=== PATIENT | male | born 1980 | race Caucasian/White ===

== ENCOUNTER 2021-07-09 18:20 | Inpatient (IN) | payer OTHER ==
[2021-07-09] VITALS (20 sets, daily range): BP systolic 97–178; BP diastolic 58–117
[~2021-07-09] VITALS: Ht 185.4 cm; Wt 150.1 kg
--- NOTE | 2021-07-09 18:00 | NUR ---
Patient in from [place], to room ICU 7, report received
--- NOTE | 2021-07-09 18:25 | NUR ---
patient in the computer, report given to oncoming shift
[2021-07-09] MEDS ORDERED: ZOFRAN ONE (18:30)
[2021-07-09] MEDS ORDERED: ZOFRAN IV PRN (19:00)
[2021-07-09] MEDS: ZITHROMAX 500 MG in NS 250ML 250 ML IV SCH (19:00)
[2021-07-09] MEDS ORDERED: NS 250ML 250 ML ONE (20:52)
[2021-07-09] MEDS: DUO 0.5-3(2.5) MG/3 ML IH SCH (20:58)
[2021-07-09] MEDS: MORPHINE SULFATE IV PRN ×2 (21:20→21:40)
[2021-07-09] MEDS ORDERED: REMDESIVIR (EUA) 200 MG in NS 100ML 100 ML IV STA (21:37)
[2021-07-09] MEDS ORDERED: LOPRESSER ONE (21:41)
[2021-07-09] MEDS ORDERED: LOPRESSER IVP STA (21:43)
[2021-07-09] MEDS ORDERED: ATIVAN IM PRN (22:00)
[2021-07-09] MEDS ORDERED: APRESOLINE IV PRN (22:00)
[2021-07-09] MEDS ORDERED: LOVENOX SQ SCH (22:00)
[2021-07-09] MEDS ORDERED: DEXTROSE 50%-WATER SYRINGE IV PRN ×2 (22:00→23:30)
--- NOTE | 2021-07-09 22:08 | PRM.CONS ---
Consultation Reason for Consult: Reason for Consultation: acute respiratory failure and pneumonia due to COVID- 19 History of Present Illness Current and Past HX: (1) Acute respiratory failure due to COVID-19 Status: Acute ICD Code: U07.1 - COVID-19; J96.00 - Acute respiratory failure, unspecified whether with hypoxia or hypercapnia SNOMED: 17371034, [id number] Assessment & Plan: Initially requiring ComfortFlow w/ NRB, now on BiPAP. Received ivermectin, hydroxychloroquine, solumedrol x 1, rocephin x 1, lovenox x 1, vitamin D, vitamin C, zinc, azithromycin, and ativan at outside hospital. Did not receive remdesevir. This is patient's 2nd episode of COVID-19 infection, first was in February 2021. He still remained unvaccinated even after his first episode. [facility] 14.5. Will treat as follows: -continue dexamethasone daily -continue IV abx -start remdesevir -supplemental O2 as needed, wean as tolerated -lovenox 40mg SQ daily -will monitor CBC and CMP daily -enhanced respiratory precautions -full code -teleintensivist consult placed (2) Pneumonia due to 2019 novel coronavirus Status: Acute ICD Code: U07.1 - COVID-19; J12.82 - Pneumonia due to coronavirus disease 2019 SNOMED: 976681923787069654 Assessment & Plan: Outside imaging positive for bilateral infiltrates, COVID-19 positive. -treating COVID-19 infection as above -repeat CBC in AM -CXR in AM (3) DKA (diabetic ketoacidosis) Status: Acute ICD Code: E11.10 - Type 2 diabetes mellitus with ketoacidosis without coma SNOMED: 42662283, 576213774 Assessment & Plan: pH 7.2. AG 29 Serum acetone: large UA ketones 4+ Lactic acid 2.5 -insulin drip -IV fluids -NPO (4) Suspected CHF (congestive heart failure) Status: Chronic ICD Code: R09.89 - Other specified symptoms and signs involving the circulatory and respiratory systems SNOMED: 68563089, 418918496 Assessment & Plan: Patient was undergoing work-up for CHF in when he was found to be positive for COVID-19 so work-up was stopped at that time, no further testing done. -consider echo when patient is stable (5) T2DM (type 2 diabetes mellitus) Status: Chronic ICD Code: E11.9 - Type 2 diabetes mellitus without complications SNOMED: 46539201 Assessment & Plan: Uncontrolled. -treating DKA as above History of Patient Comments 41yoM w/ hx of uncontrolled T2DM and morbid obesity (BMI 40.1) presented to ICU as a transfer from [place] for higher level of care. He was diagnosed w/ COVID-19 on 07/05/21 and went to [facility] on 07/07/21 w/ worsening SOB and desaturation into low 80s on room air at home. Patient was also positive for COVID-19 in February 2021 and remains unvaccinated. At [facility] he received the following: solumedrol x 1, rocephin x 1, azithromycin x 1, magnesium x 1, vitamin D, vitamin C, zinc, hydroxychloroquine (really), ivermectin (really), lovenox x 1, sliding scale insulin, ativan, tessalon pearls. Did not receive remdesevir and was not offered remdesevir. is glad he was transferred here for HLOC. See labs below. Patient admitted to ICU for acute respiratory failure and pneumonia due to COVID-19 requiring BiPAP, DKA, and management of chronic conditions. . Vitals & Lab Vital Signs Date Time Temp Pulse Resp B/P (MAP) Pulse Ox O2 Delivery O2 Flow Rate FiO2 07/10/21 02:40 98.5 110 27 120/75 (90) 95 07/10/21 01:34 Bi-pap 100 07/10/21 00:00 100.00 Laboratory Tests Test 07/09/21 00:54 07/09/21 22:20 07/09/21 23:45 07/10/21 00:05 Urine Collection Type CCMS Urine Color YELLOW Urine Appearance TURBID Urine Bilirubin 1+ Urine Ketones 4+ Urine Specific [place] 1.025 Urine pH 5.5 Urine Protein 2+ Urine Urobilinogen 0.2 E.U./dL Urine Nitrate NEGATIVE Urine Leukocyte Esterase NEGATIVE Urine Glucose (Auto)(UA) 500 mg/dL Urine Blood 2+ Urine RBC TooNumerousToCount RBC/HPF Urine WBC NONE SEEN WBC/HPF Urine Squamous Epithelial Cells FEW Urine Bacteria FEW White Blood Count 14.5 10^3/uL Red Blood Count 4.62 10^6/uL Hemoglobin 12.8 g/dL Hematocrit 40.0 % Mean Corpuscular Volume 86.6 fL Mean Corpuscular Hemoglobin 27.7 pg Mean Corpuscular Hemoglobin Concent 32.0 g/dL Red Cell Distribution Width 13.3 % Platelet Count 148 10^3/uL Mean Platelet Volume 10.4 fL Neutrophils (%) (Auto) 85.7 % Lymphocytes (%) (Auto) 4.4 % Monocytes (%) (Auto) 7.4 % Neutrophils # (Auto) 12.4 10^3/uL Lymphocytes # (Auto) 0.63 10^3/uL1 Monocytes # (Auto) 1.1 10^3/uL Absolute Immature Granulocyte (auto 0.35 10^3 u/L Absolute Eosinophils (auto) 0.0 10^3/uL Immature Granulocytes % 2.40 % Eosinophils % 0.0 % Basophils % 0.1 % Basophils # 0.0 10^3/uL Sodium Level 137 mmol/L Potassium Level 4.0 mmol/L Chloride Level 100.0 mmol/L Carbon Dioxide Level 12.0 mmol/L Anion Gap 29.0 Blood Urea Nitrogen 22 mg/dL Creatinine 0.98 mg/dL Estimated GFR () 102.0 Est GFR (CKD-EPI)(Non-Afr [place]) 84.3 BUN/Creatinine Ratio 22.0 Glucose Level 422 mg/dL Calcium Level 7.0 mg/dL Phosphorus Level 3.2 mg/dL Magnesium Level 1.9 mg/dL Total Bilirubin 0.6 mg/dL Aspartate Amino Transf (AST/SGOT) 22 U/L Alanine Aminotransferase (ALT/SGPT) 16 U/L Alkaline Phosphatase 183 U/L Total Protein 5.3 g/dL Albumin 1.8 g/dL Globulin 3.5 Albumin/Globulin Ratio 0.514 Acetone, Semi-Quantitative LARGE Lactic Acid Level 2.5 mmol/L Blood Gas Sample Site LR Blood Gas pH 7.202 Blood Gas PCO2 29.5 mmHg Blood Gas PO2 78.0 mmHg Blood Gas HCO3 11.3 mmol/L Blood Gas Base Excess -15.2 mmol/L Filiberto Test POSITIVE Arterial Blood Oxygen Saturation 93 % Deoxyhemoglobin 6.9 % Carboxyhemoglobin 0.8 % Methemoglobin 0.4 % Total Hemoglobin 15.1 % Total Oxygen Concentration 19.5 % Oxygen Delivery Method (LAB) BIPAP ST 16/[address] Blood Gas Vent Rate 25 FiO2 100 % Total Carbon Dioxide 12.2 mmol/L Test 07/10/21 03:25 Lactic Acid Followup at 2 Hours 1.8 mmol/L WHITNEY JUÁREZ MD Jul 09, 2021 22:08
[2021-07-09 22:31] LABS: BASOPHIL % 0.1 % (0.0-0.2); LYMPHOCYTES # 0.63 10^3/uL1 (1.0-4.8); LYMPHOCYTES % 4.4 % (24.0-44.0); MEAN CORP HGB 27.7 pg (26-34); MONOCYTES # 1.1 10^3/uL (0.3-0.8); MONOCYTES % 7.4 % (5.0-12.0); NEUTROPHIL # 12.4 10^3/uL (1.8-7.7); NEUTROPHILS % 85.7 % (41.0-85.0); PLATELET COUNT 148 10^3/uL (150-400); RED CELL DISTRIBUTION WIDTH 13.3 % (11.5-14.5)
[2021-07-09] MEDS ORDERED: HUMALOG SQ ONE (23:30)
[2021-07-09] MEDS ORDERED: HUMULIN R 100 UNIT in NS 100ML 100 ML IV SCH (23:30)
[2021-07-09] MEDS ORDERED: NS 100ML 100 ML IV ONE (23:34)
[2021-07-09] MEDS ORDERED: HUMULIN R ONE (23:35)
[2021-07-09] MEDS ORDERED: NS 1000ML 1,000 ML ONE (23:55)
[2021-07-10] VITALS (206 sets, daily range): BP systolic 85–162; BP diastolic 48–102
[2021-07-10] MEDS: HUMULIN R 100 UNIT in NS 100ML 100 ML IV SCH ×2 (00:02→10:03)
[2021-07-10 00:36] LABS: ABG PCO2 29.5 mmHg (35.0-45.0); ABG PH 7.202 (7.350-7.450); BE(B) -15.2 mmol/L (-2.0-2.0); HCO3act 11.3 mmol/L (22.0-26.0)
[2021-07-10] MEDS: D5W-1/2NS 1000ML 1,000 ML IV SCH ×3 (00:50→07:30)
[2021-07-10] MEDS: DUO 0.5-3(2.5) MG/3 ML IH SCH ×6 (01:00→20:45)
[2021-07-10 01:01] LABS: BILIRUBIN,URINE 1+ (NEGATIVE); UROBILINOGEN,URINE 0.2 E.U./dL (0.2)
--- NOTE | 2021-07-10 01:37 | TELE.CONS ---
Consultation Reason for Consult: Reason for Consultation: COvid History of Present Illness History of Patient Comments The pt is a 41 YOM with pmxh of DM and obesity who presents for SOB. THe pt is not covid vaccinated and is noted to have SOb and presents with COVID PNA. PT is now on nrb and high flow but had desat to 60% and was placd on bipap 100%. PT was als onoted to ahve elevated AG and FS of 400 with nausea. PT was started on insulin gtt for DKA protocol. PT complains on NV. Review of Systems Allergies: Coded Allergies: No Known Drug Allergies (Verified Allergy, Unknown, 07/10/21) LABS LAB RESULTS Laboratory Tests Test 07/09/21 00:54 07/09/21 22:20 07/09/21 23:45 07/10/21 00:05 Urine Collection Type CCMS Urine Color YELLOW Urine Appearance TURBID Urine Bilirubin 1+ Urine Ketones 4+ Urine Specific [place] 1.025 Urine pH 5.5 Urine Protein 2+ Urine Urobilinogen 0.2 E.U./dL Urine Nitrate NEGATIVE Urine Leukocyte Esterase NEGATIVE Urine Glucose (Auto)(UA) 500 mg/dL Urine Blood 2+ Urine RBC TooNumerousToCount RBC/HPF Urine WBC NONE SEEN WBC/HPF Urine Squamous Epithelial Cells FEW Urine Bacteria FEW White Blood Count 14.5 10^3/uL Red Blood Count 4.62 10^6/uL Hemoglobin 12.8 g/dL Hematocrit 40.0 % Mean Corpuscular Volume 86.6 fL Mean Corpuscular Hemoglobin 27.7 pg Mean Corpuscular Hemoglobin Concent 32.0 g/dL Red Cell Distribution Width 13.3 % Platelet Count 148 10^3/uL Mean Platelet Volume 10.4 fL Neutrophils (%) (Auto) 85.7 % Lymphocytes (%) (Auto) 4.4 % Monocytes (%) (Auto) 7.4 % Neutrophils # (Auto) 12.4 10^3/uL Lymphocytes # (Auto) 0.63 10^3/uL1 Monocytes # (Auto) 1.1 10^3/uL Absolute Immature Granulocyte (auto 0.35 10^3 u/L Absolute Eosinophils (auto) 0.0 10^3/uL Immature Granulocytes % 2.40 % Eosinophils % 0.0 % Basophils % 0.1 % Basophils # 0.0 10^3/uL Sodium Level 137 mmol/L Potassium Level 4.0 mmol/L Chloride Level 100.0 mmol/L Carbon Dioxide Level 12.0 mmol/L Anion Gap 29.0 Blood Urea Nitrogen 22 mg/dL Creatinine 0.98 mg/dL Estimated GFR () 102.0 Est GFR (CKD-EPI)(Non-Afr [place]) 84.3 BUN/Creatinine Ratio 22.0 Glucose Level 422 mg/dL Calcium Level 7.0 mg/dL Phosphorus Level 3.2 mg/dL Magnesium Level 1.9 mg/dL Total Bilirubin 0.6 mg/dL Aspartate Amino Transf (AST/SGOT) 22 U/L Alanine Aminotransferase (ALT/SGPT) 16 U/L Alkaline Phosphatase 183 U/L Total Protein 5.3 g/dL Albumin 1.8 g/dL Globulin 3.5 Albumin/Globulin Ratio 0.514 Acetone, Semi-Quantitative LARGE Lactic Acid Level 2.5 mmol/L Blood Gas Sample Site LR Blood Gas pH 7.202 Blood Gas PCO2 29.5 mmHg Blood Gas PO2 78.0 mmHg Blood Gas HCO3 11.3 mmol/L Blood Gas Base Excess -15.2 mmol/L Filiberto Test POSITIVE Arterial Blood Oxygen Saturation 93 % Deoxyhemoglobin 6.9 % Carboxyhemoglobin 0.8 % Methemoglobin 0.4 % Total Hemoglobin 15.1 % Total Oxygen Concentration 19.5 % Oxygen Delivery Method (LAB) BIPAP ST 16/[address] Blood Gas Vent Rate 25 FiO2 100 % Total Carbon Dioxide 12.2 mmol/L Current Medications Medications (Trade) Dose Ordered Sig/Robby Route PRN Reason Start Time Stop Time Status Last Admin Dose Admin Ondansetron HCl (Zofran) 4 mg STK-MED ONCE .ROUTE 07/09/21 18:30 07/09/21 18:31 DC Ondansetron HCl (Zofran) 4 mg Q6HR PRN IV NAUSEA / VOMITING 07/09/21 19:00 08/08/21 18:59 07/09/21 21:20 Azithromycin 500 mg/Sodium Chloride 250 ml @ 175 mls/hr Q24HRS IV 07/09/21 19:00 08/08/21 18:59 07/09/21 19:00 Albuterol/ Ipratropium (Duo 0.5-3(2.5) Mg/3 ml) 3 ml RTQ4 IH 07/09/21 21:00 08/08/21 20:59 07/09/21 20:58 Morphine Sulfate (Morphine Sulfate) 1 mg Q6 PRN IV PAIN 4 - 6 07/09/21 19:00 08/08/21 18:59 Morphine Sulfate (Morphine Sulfate) 2 mg Q6 PRN IV PAIN 7 - 10 07/09/21 20:00 08/08/21 19:59 07/09/21 21:20 Sodium Chloride 250 ml @ ud STK-MED ONCE .ROUTE 07/09/21 20:52 07/09/21 20:52 DC Metoprolol Tartrate (Lopresser) 5 mg STK-MED ONCE .ROUTE 07/09/21 21:41 07/09/21 21:42 DC Metoprolol Tartrate (Lopresser) 5 mg STAT STAT IVP 07/09/21 21:43 07/09/21 22:00 DC Insulin Human Lispro (Humalog) 0-140 0 Units 141-200... ACHS SQ 07/10/21 07:30 08/09/21 07:29 Dextrose (Dextrose 50%-Water Syringe) 25 ml STAT PRN IV hypoglycemia 07/09/21 22:00 08/08/21 21:59 Enoxaparin Sodium (Lovenox) 40 mg Q24HRS SQ 07/09/21 22:00 08/08/21 21:59 Hydralazine HCl (Apresoline) 10 mg Q6HR PRN IV HYPERTENSION 07/09/21 22:00 08/08/21 21:59 Remdesivir 200 mg/ Sodium Chloride 140 ml @ 120.69 mls/ hr OT STAT IV 07/09/21 21:37 07/09/21 22:46 UNV Remdesivir 100 mg/ Sodium Chloride 120 ml @ 111.111 mls/hr Q24HRS IV 07/10/21 22:00 07/13/21 23:05 UNV Lorazepam (Ativan) 1 mg Q4HR PRN IM ANXIETY 07/09/21 22:00 08/08/21 21:59 Insulin Human Lispro (Humalog) 18 unit OT ONCE SQ 07/09/21 23:30 07/09/21 23:31 DC Ondansetron HCl (Zofran) 4 mg Q4H PRN IV NAUSEA / VOMITING 07/09/21 23:30 08/08/21 23:29 Insulin Human Regular 100 unit/ Sodium Chloride 100 ml @ 5 mls/hr IV 07/09/21 23:30 07/10/21 01:10 DC Dextrose (Dextrose 50%-Water Syringe) 25 ml STAT PRN IV HYPOGLYCEMIA 07/09/21 23:30 08/08/21 23:29 Sodium Chloride 100 ml @ ud STK-MED ONCE IV 07/09/21 23:34 07/09/21 23:35 DC Insulin Human Regular (Humulin R) 1 unit STK-MED ONCE .ROUTE 07/09/21 23:35 07/09/21 23:35 DC Sodium Chloride 1,000 ml @ ud STK-MED ONCE .ROUTE 07/09/21 23:55 07/09/21 23:56 DC Insulin Human Regular 100 unit/ Sodium Chloride 100 ml @ 0 mls/hr TITRATE IV 07/10/21 01:30 08/09/21 01:29 07/10/21 00:02 VTE VTE Risk Score VTE Risk: Score 0-1 = Low Risk (Aggressive mobilization; early ambulation; no VTE prophylaxis required) Score 2: Moderate Risk (Intermittent/Pneumatic Compression Device OR Lovenox/Heparin/Coumadin) Score 3-4: High Risk (Intermittent/Pneumatic Compression Device AND Lovenox/Heparin/Coumadin) Score > or =5: Highest Risk (Intermittent/Pneumatic Compression Device AND Lovenox/Heparin/Coumadin) Assessment/Plan Assessment/Plan Assessment/Plan #1 Neuro: Tylenol for pain #2 CV: The pt is normotensive at present. #3 Pulm: Pt has covid PNA now c/b ARDS and acute respiratory failure with hypoxia requiring Bipap. The pt is on FIo2 of 100% and PEEP of 5. Pt received decadron, will start remdesivir, , start duonebs, melatonin. #4 GI: diet as tolerated #5 Renal: Monitor for renal failure, replete lytes , pt AG elevation in setting of DKA. Lactate 2 #6 ID: Covid + and getting remdesivir #7 Endo: keep FS 150-180, pt with DKA, start insulin gtt protocol #8 Heme: Tx plats >10k hgb >7, pt at risk for clotting and so will give a/c #9 PPx: lovenox and PPI I discussed pt with THERAPEUTIC SALES SPECIALIST and completed the video assessment with assistance from the THERAPEUTIC SALES SPECIALIST. I spent a total of greater than 60 minutes formulating critical care for this patient today. I saw this patient and completed a full visual exam via audio-visual HIPAA compliant technology. SERJIO OSUNA MD Jul 10, 2021 01:36
[2021-07-10 04:57] LABS: CARBON DIOXIDE 16.6 mmol/L (20.0-32)
[2021-07-10 05:02] LABS: BASOPHIL % 0.1 % (0.0-0.2); LYMPHOCYTES # 0.78 10^3/uL1 (1.0-4.8); LYMPHOCYTES % 5.3 % (24.0-44.0); MONOCYTES # 1.2 10^3/uL (0.3-0.8); MONOCYTES % 8.3 % (5.0-12.0); NEUTROPHIL # 12.8 10^3/uL (1.8-7.7); NEUTROPHILS % 86.3 % (41.0-85.0); PLATELET COUNT 149 10^3/uL (150-400); RED CELL DISTRIBUTION WIDTH 13.2 % (11.5-14.5)
[2021-07-10] MEDS ORDERED: HUMALOG SQ SCH (07:30)
--- NOTE | 2021-07-10 07:53 | DIREP ---
PROCEDURE:CHEST 1 VIEW COMPARISON:None. INDICATIONS:pneumonia FINDINGS: LUNGS/PLEURA:Diffuse bilateral infiltrates worse in the lower lobes. VASCULATURE:Normal. Unremarkable pulmonary vasculature. CARDIAC:Normal. No cardiac silhouette abnormality or cardiomegaly. MEDIASTINUM:Normal. No visible mass or adenopathy. BONES:Normal. No fracture or visible bony lesion. OTHER:Negative. CONCLUSION:Diffuse bilateral infiltrates worse in the lower lobes. Dictated by: Nathaniel Rodriguez MD on 07/10/2021 at 07:51 AM
[2021-07-10 08:39] LABS: CARBON DIOXIDE 22.8 mmol/L (20.0-32)
[2021-07-10] MEDS ORDERED: REMDESIVIR (EUA) 200 MG in NS 100ML 100 ML IV ONE (09:00)
[2021-07-10] MEDS: DEXAMETHASONE 10 MG/ML VIAL IV SCH (09:00)
[2021-07-10] MEDS ORDERED: DEXAMETHASONE 10 MG/ML VIAL IV SCH (09:00)
--- NOTE | 2021-07-10 09:09 | DIET.OP ---
Nutrition Asmt/Malnutrit 2-17 Nutritional Screening: Malnutr/Diet Consult Diagnosis: COVID PNA Pertinent Medical Hx/Surgical: DKA, CHF, T2DM Subjective Information: Diabetic diet consult received. Poor PO intake currently. Unable to speak with pt at this time, HIRO wt or diet hx. Pt on bipap. Current Diet Order/Nutrition S: 1800kcal ADA Patient /S.O: Cannot Verbalize Diet EDU Pertinent Meds azithromycin, hydralazine, insulin, remdesivir, lovenox Pertinent Labs BUN 23 H, Glucose 340 H, Hgb 13.5 L Height (Inches): 73 Current Weight: 304 %IBW: 165 Weight Status: Obese GI Symptoms: None Food Allergies: No Cultural/Ethnic/Jew Tory: none pertinent Usual Diet at Home: UTO Skin Integrity/Comment: No Current %PO: Negligible(<25%) BEE in Kcals: Adj WT of IBW Calories/Kcals/K-26 kcal/kg IBW Kcals Calculated: 7619-7376 kcal/day Protein: Adj WT of IBW Protein g/k.2-2.0 g/kg Protein Calculated: 100-167 g/day Fluid: ml: 2022-6619 mL/day or per Nutritional Problem: Nutr. Problems Present Problems: Predicted suboptimal intake Etiology: COVID PNA, oxygen support via bipap Signs/Symptoms: poor PO intake reported, bipap therapy ordered Protein-Calorie Malnutrition: N/A Is there a minimum of two crit: No Malnutrition Related to Morbid: No Recommendations by RD: Add supplement feedings RD Comments: Glucerna TID Expected Outcomes PO intake >50%. Wt stabilization. Labs WNL. Skin intact. Malnutrtion/Nutrition Risk Edu: No RD Follow-Up Date: Jul 12, 2021 Notificiation Needed?: No LESLEY CANSECO LD - TELE Jul 10, 2021 09:09
[2021-07-10] MEDS ORDERED: NS 100ML 100 ML IV ONE (09:37)
[2021-07-10] MEDS ORDERED: D5W-1/2 NS/KCL 20MEQ 1,000 ML ONE (09:57)
--- NOTE | 2021-07-10 10:01 | PRM.PN ---
Subjective Subjective Date: Jul 10, 2021 Time: 09:56 Subjective Patient is a 41-year-old who was transferred from another facility to the hospital for pneumonia due to COVID-19 infection and acute respiratory failure requiring high level of oxygen therapy admitted to the ICU for further evaluati on and management. Upon arrival patient was noted to be in DKA and was started on appropriate management.Patient is currently on BiPAP 16/8 satting between 89 to 93%.Review of medical records indicate patient with bilateral pneumonia worse on the left lower lobe and noted to have elevated WBC of 14. Patient will benefit from IV antibiotic. VTE VTE Risk Score VTE Risk: Score 0-1 = Low Risk (Aggressive mobilization; early ambulation; no VTE prophylaxis required) Score 2: Moderate Risk (Intermittent/Pneumatic Compression Device OR Lovenox/Heparin/Coumadin) Score 3-4: High Risk (Intermittent/Pneumatic Compression Device AND Lovenox/Heparin/Coumadin) Score > or =5: Highest Risk (Intermittent/Pneumatic Compression Device AND Lovenox/Heparin/Coumadin) Review of Systems Other Unable to obtain Allergies: Coded Allergies: No Known Drug Allergies (Verified Allergy, Unknown, 07/10/21) Objective Vitals and I/O Vital Sign - Last 24 Hours 07/10/21 07/10/21 07/10/21 07/10/21 08:00 08:49 08:50 08:51 Pulse 103 103 103 Resp 31 31 31 Pulse Ox 93 93 93 O2 Delivery Bi-pap Bi-pap O2 Flow Rate 100.00 FiO2 100 100 07/10/21 07/10/21 08:52 08:53 Pulse 108 Resp 28 Pulse Ox 94 O2 Flow Rate 45.00 FiO2 100 Intake and Output 07/10/21 07:00 Intake Total 1000 ml Output Total 2100 ml Balance -1100 ml General: Alert, Oriented X3 HEENT: Atraumatic, PERRLA Neck: Supple, No JVD, No thyromegaly Lungs: Other (Decreased left lower lung sound) Heart: Regular rate, Normal S1, Normal S2 Abdomen: Normal bowel sounds, Soft, No tenderness Extremities: No clubbing, No cyanosis Skin: No rashes, No breakdown, No significant lesion All Results(Lab/Rad) Laboratory Tests Test 07/09/21 22:20 07/09/21 23:45 07/10/21 00:05 07/10/21 03:25 White Blood Count 14.5 10^3/uL Red Blood Count 4.62 10^6/uL Hemoglobin 12.8 g/dL Hematocrit 40.0 % Mean Corpuscular Volume 86.6 fL Mean Corpuscular Hemoglobin 27.7 pg Mean Corpuscular Hemoglobin Concent 32.0 g/dL Red Cell Distribution Width 13.3 % Platelet Count 148 10^3/uL Mean Platelet Volume 10.4 fL Neutrophils (%) (Auto) 85.7 % Lymphocytes (%) (Auto) 4.4 % Monocytes (%) (Auto) 7.4 % Neutrophils # (Auto) 12.4 10^3/uL Lymphocytes # (Auto) 0.63 10^3/uL1 Monocytes # (Auto) 1.1 10^3/uL Absolute Immature Granulocyte (auto 0.35 10^3 u/L Absolute Eosinophils (auto) 0.0 10^3/uL Immature Granulocytes % 2.40 % Eosinophils % 0.0 % Basophils % 0.1 % Basophils # 0.0 10^3/uL Sodium Level 137 mmol/L Potassium Level 4.0 mmol/L Chloride Level 100.0 mmol/L Carbon Dioxide Level 12.0 mmol/L Anion Gap 29.0 Blood Urea Nitrogen 22 mg/dL Creatinine 0.98 mg/dL Estimated GFR () 102.0 Est GFR (CKD-EPI)(Non-Afr Swedish) 84.3 BUN/Creatinine Ratio 22.0 Glucose Level 422 mg/dL Calcium Level 7.0 mg/dL Phosphorus Level 3.2 mg/dL Magnesium Level 1.9 mg/dL Total Bilirubin 0.6 mg/dL Aspartate Amino Transf (AST/SGOT) 22 U/L Alanine Aminotransferase (ALT/SGPT) 16 U/L Alkaline Phosphatase 183 U/L Total Protein 5.3 g/dL Albumin 1.8 g/dL Globulin 3.5 Albumin/Globulin Ratio 0.514 Acetone, Semi-Quantitative LARGE Lactic Acid Level 2.5 mmol/L Blood Gas Sample Site LR Blood Gas pH 7.202 Blood Gas PCO2 29.5 mmHg Blood Gas PO2 78.0 mmHg Blood Gas HCO3 11.3 mmol/L Blood Gas Base Excess -15.2 mmol/L Filiberto Test POSITIVE Arterial Blood Oxygen Saturation 93 % Deoxyhemoglobin 6.9 % Carboxyhemoglobin 0.8 % Methemoglobin 0.4 % Total Hemoglobin 15.1 % Total Oxygen Concentration 19.5 % Oxygen Delivery Method (LAB) BIPAP ST 16/[address] Blood Gas Vent Rate 25 FiO2 100 % Total Carbon Dioxide 12.2 mmol/L Lactic Acid Followup at 2 Hours 1.8 mmol/L Test 07/10/21 04:16 07/10/21 04:46 07/10/21 05:33 07/10/21 07:07 White Blood Count 14.8 10^3/uL Red Blood Count 4.66 10^6/uL Hemoglobin 13.5 g/dL Hematocrit 39.0 % Mean Corpuscular Volume 83.7 fL Mean Corpuscular Hemoglobin 29.0 pg Mean Corpuscular Hemoglobin Concent 34.6 g/dL Red Cell Distribution Width 13.2 % Platelet Count 149 10^3/uL Mean Platelet Volume 10.8 fL Neutrophils (%) (Auto) 86.3 % Lymphocytes (%) (Auto) 5.3 % Monocytes (%) (Auto) 8.3 % Neutrophils # (Auto) 12.8 10^3/uL Lymphocytes # (Auto) 0.78 10^3/uL1 Monocytes # (Auto) 1.2 10^3/uL Absolute Immature Granulocyte (auto 0.31 10^3 u/L Absolute Eosinophils (auto) 0.0 10^3/uL Immature Granulocytes % 2.10 % Eosinophils % 0.0 % Basophils % 0.1 % Basophils # 0.0 10^3/uL Sodium Level 132 mmol/L Potassium Level 3.9 mmol/L Chloride Level 97.0 mmol/L Carbon Dioxide Level 16.6 mmol/L Anion Gap 22.3 Blood Urea Nitrogen 24 mg/dL Creatinine 1.13 mg/dL Estimated GFR () 86.5 Est GFR (CKD-EPI)(Non-Afr Swedish) 71.5 BUN/Creatinine Ratio 21.0 Glucose Level 418 mg/dL Calcium Level 7.9 mg/dL Total Bilirubin 0.5 mg/dL Aspartate Amino Transf (AST/SGOT) 31 U/L Alanine Aminotransferase (ALT/SGPT) 21 U/L Alkaline Phosphatase 213 U/L Total Protein 6.0 g/dL Albumin 1.9 g/dL Globulin 4.1 Albumin/Globulin Ratio 0.463 Bedside Glucose 378 381 328 Test 07/10/21 08:13 07/10/21 08:17 07/10/21 09:12 Sodium Level 134 mmol/L Potassium Level 3.7 mmol/L Chloride Level 99.0 mmol/L Carbon Dioxide Level 22.8 mmol/L Glucose Level 340 mg/dL Blood Urea Nitrogen 23 mg/dL Creatinine 1.03 mg/dL Calcium Level 8.0 mg/dL Anion Gap 15.9 Estimated GFR () 96.3 Est GFR (CKD-EPI)(Non-Afr Swedish) 79.6 BUN/Creatinine Ratio 22.0 Bedside Glucose 270 332 Current Medications Medications (Trade) Dose Ordered Sig/Robby Route PRN Reason Start Time Stop Time Status Last Admin Dose Admin Ondansetron HCl (Zofran) 4 mg STK-MED ONCE .ROUTE 07/09/21 18:30 07/09/21 18:31 DC Ondansetron HCl (Zofran) 4 mg Q6HR PRN IV NAUSEA / VOMITING 07/09/21 19:00 08/08/21 18:59 07/09/21 21:20 Azithromycin 500 mg/Sodium Chloride 250 ml @ 175 mls/hr Q24HRS IV 07/09/21 19:00 08/08/21 18:59 07/09/21 19:00 Albuterol/ Ipratropium (Duo 0.5-3(2.5) Mg/3 ml) 3 ml RTQ4 IH 07/09/21 21:00 08/08/21 20:59 07/10/21 08:48 Morphine Sulfate (Morphine Sulfate) 1 mg Q6 PRN IV PAIN 4 - 6 07/09/21 19:00 08/08/21 18:59 Morphine Sulfate (Morphine Sulfate) 2 mg Q6 PRN IV PAIN 7 - 10 07/09/21 20:00 08/08/21 19:59 07/09/21 21:20 Sodium Chloride 250 ml @ ud STK-MED ONCE .ROUTE 07/09/21 20:52 07/09/21 20:52 DC Metoprolol Tartrate (Lopresser) 5 mg STK-MED ONCE .ROUTE 07/09/21 21:41 07/09/21 21:42 DC Metoprolol Tartrate (Lopresser) 5 mg STAT STAT IVP 07/09/21 21:43 07/09/21 22:00 DC 07/09/21 21:43 Insulin Human Lispro (Humalog) 0-140 0 Units 141-200... ACHS SQ 07/10/21 07:30 08/09/21 07:29 Hold Dextrose (Dextrose 50%-Water Syringe) 25 ml STAT PRN IV hypoglycemia 07/09/21 22:00 08/08/21 21:59 Enoxaparin Sodium (Lovenox) 40 mg Q24HRS SQ 07/09/21 22:00 08/08/21 21:59 07/09/21 22:00 Hydralazine HCl (Apresoline) 10 mg Q6HR PRN IV HYPERTENSION 07/09/21 22:00 08/08/21 21:59 Remdesivir 200 mg/ Sodium Chloride 140 ml @ 120.69 mls/ hr OT STAT IV 07/09/21 21:37 07/10/21 08:10 DC Remdesivir 100 mg/ Sodium Chloride 120 ml @ 111.111 mls/hr Q24HRS IV 07/10/21 22:00 07/10/21 08:22 DC Lorazepam (Ativan) 1 mg Q4HR PRN IM ANXIETY 07/09/21 22:00 08/08/21 21:59 07/09/21 23:50 Insulin Human Lispro (Humalog) 18 unit OT ONCE SQ 07/09/21 23:30 07/09/21 23:31 DC 07/09/21 23:30 Ondansetron HCl (Zofran) 4 mg Q4H PRN IV NAUSEA / VOMITING 07/09/21 23:30 08/08/21 23:29 Insulin Human Regular 100 unit/ Sodium Chloride 100 ml @ 5 mls/hr IV 07/09/21 23:30 07/10/21 01:10 DC Dextrose (Dextrose 50%-Water Syringe) 25 ml STAT PRN IV HYPOGLYCEMIA 07/09/21 23:30 08/08/21 23:29 Sodium Chloride 100 ml @ ud STK-MED ONCE IV 07/09/21 23:34 07/09/21 23:35 DC Insulin Human Regular (Humulin R) 1 unit STK-MED ONCE .ROUTE 07/09/21 23:35 07/09/21 23:35 DC Sodium Chloride 1,000 ml @ ud STK-MED ONCE .ROUTE 07/09/21 23:55 07/09/21 23:56 DC Insulin Human Regular 100 unit/ Sodium Chloride 100 ml @ 0 mls/hr TITRATE IV 07/10/21 01:30 08/09/21 01:29 07/10/21 00:02 Remdesivir 200 mg/ Sodium Chloride 140 ml @ 120.69 mls/ hr OT ONCE IV 07/10/21 09:00 07/10/21 10:09 07/10/21 09:00 Remdesivir 100 mg/ Sodium Chloride 120 ml @ 111.111 mls/hr Q24HRS IV 07/11/21 09:00 07/14/21 10:05 Sodium Chloride 100 ml @ ud STK-MED ONCE IV 07/10/21 09:37 07/10/21 09:37 DC Course Sepsis Screening Results: Posi: POSITIVE++ Sepsis Qualifier/Stage: SEVERE SEPSIS RISK Vitals & review Data Vital Sign - Last 24 Hours 07/10/21 07/10/21 07/10/21 07/10/21 08:00 08:49 08:50 08:51 Pulse 103 103 103 Resp 31 31 31 Pulse Ox 93 93 93 O2 Delivery Bi-pap Bi-pap O2 Flow Rate 100.00 FiO2 100 100 07/10/21 07/10/21 08:52 08:53 Pulse 108 Resp 28 Pulse Ox 94 O2 Flow Rate 45.00 FiO2 100 Intake and Output 07/10/21 07:00 Intake Total 1000 ml Output Total 2100 ml Balance -1100 ml Laboratory Tests Test 07/09/21 00:54 07/09/21 22:20 07/09/21 23:45 07/10/21 00:05 Urine Collection Type CCMS Urine Color YELLOW Urine Appearance TURBID Urine Bilirubin 1+ Urine Ketones 4+ Urine Specific [place] 1.025 Urine pH 5.5 Urine Protein 2+ Urine Urobilinogen 0.2 E.U./dL Urine Nitrate NEGATIVE Urine Leukocyte Esterase NEGATIVE Urine Glucose (Auto)(UA) 500 mg/dL Urine Blood 2+ Urine RBC TooNumerousToCount RBC/HPF Urine WBC NONE SEEN WBC/HPF Urine Squamous Epithelial Cells FEW Urine Bacteria FEW White Blood Count 14.5 10^3/uL Red Blood Count 4.62 10^6/uL Hemoglobin 12.8 g/dL Hematocrit 40.0 % Mean Corpuscular Volume 86.6 fL Mean Corpuscular Hemoglobin 27.7 pg Mean Corpuscular Hemoglobin Concent 32.0 g/dL Red Cell Distribution Width 13.3 % Platelet Count 148 10^3/uL Mean Platelet Volume 10.4 fL Neutrophils (%) (Auto) 85.7 % Lymphocytes (%) (Auto) 4.4 % Monocytes (%) (Auto) 7.4 % Neutrophils # (Auto) 12.4 10^3/uL Lymphocytes # (Auto) 0.63 10^3/uL1 Monocytes # (Auto) 1.1 10^3/uL Absolute Immature Granulocyte (auto 0.35 10^3 u/L Absolute Eosinophils (auto) 0.0 10^3/uL Immature Granulocytes % 2.40 % Eosinophils % 0.0 % Basophils % 0.1 % Basophils # 0.0 10^3/uL Sodium Level 137 mmol/L Potassium Level 4.0 mmol/L Chloride Level 100.0 mmol/L Carbon Dioxide Level 12.0 mmol/L Anion Gap 29.0 Blood Urea Nitrogen 22 mg/dL Creatinine 0.98 mg/dL Estimated GFR () 102.0 Est GFR (CKD-EPI)(Non-Afr Swedish) 84.3 BUN/Creatinine Ratio 22.0 Glucose Level 422 mg/dL Calcium Level 7.0 mg/dL Phosphorus Level 3.2 mg/dL Magnesium Level 1.9 mg/dL Total Bilirubin 0.6 mg/dL Aspartate Amino Transf (AST/SGOT) 22 U/L Alanine Aminotransferase (ALT/SGPT) 16 U/L Alkaline Phosphatase 183 U/L Total Protein 5.3 g/dL Albumin 1.8 g/dL Globulin 3.5 Albumin/Globulin Ratio 0.514 Acetone, Semi-Quantitative LARGE Lactic Acid Level 2.5 mmol/L Blood Gas Sample Site LR Blood Gas pH 7.202 Blood Gas PCO2 29.5 mmHg Blood Gas PO2 78.0 mmHg Blood Gas HCO3 11.3 mmol/L Blood Gas Base Excess -15.2 mmol/L Filiberto Test POSITIVE Arterial Blood Oxygen Saturation 93 % Deoxyhemoglobin 6.9 % Carboxyhemoglobin 0.8 % Methemoglobin 0.4 % Total Hemoglobin 15.1 % Total Oxygen Concentration 19.5 % Oxygen Delivery Method (LAB) BIPAP ST 16/[address] Blood Gas Vent Rate 25 FiO2 100 % Total Carbon Dioxide 12.2 mmol/L Test 07/10/21 03:25 07/10/21 04:16 07/10/21 04:46 07/10/21 05:33 Lactic Acid Followup at 2 Hours 1.8 mmol/L White Blood Count 14.8 10^3/uL Red Blood Count 4.66 10^6/uL Hemoglobin 13.5 g/dL Hematocrit 39.0 % Mean Corpuscular Volume 83.7 fL Mean Corpuscular Hemoglobin 29.0 pg Mean Corpuscular Hemoglobin Concent 34.6 g/dL Red Cell Distribution Width 13.2 % Platelet Count 149 10^3/uL Mean Platelet Volume 10.8 fL Neutrophils (%) (Auto) 86.3 % Lymphocytes (%) (Auto) 5.3 % Monocytes (%) (Auto) 8.3 % Neutrophils # (Auto) 12.8 10^3/uL Lymphocytes # (Auto) 0.78 10^3/uL1 Monocytes # (Auto) 1.2 10^3/uL Absolute Immature Granulocyte (auto 0.31 10^3 u/L Absolute Eosinophils (auto) 0.0 10^3/uL Immature Granulocytes % 2.10 % Eosinophils % 0.0 % Basophils % 0.1 % Basophils # 0.0 10^3/uL Sodium Level 132 mmol/L Potassium Level 3.9 mmol/L Chloride Level 97.0 mmol/L Carbon Dioxide Level 16.6 mmol/L Anion Gap 22.3 Blood Urea Nitrogen 24 mg/dL Creatinine 1.13 mg/dL Estimated GFR () 86.5 Est GFR (CKD-EPI)(Non-Afr Swedish) 71.5 BUN/Creatinine Ratio 21.0 Glucose Level 418 mg/dL Calcium Level 7.9 mg/dL Total Bilirubin 0.5 mg/dL Aspartate Amino Transf (AST/SGOT) 31 U/L Alanine Aminotransferase (ALT/SGPT) 21 U/L Alkaline Phosphatase 213 U/L Total Protein 6.0 g/dL Albumin 1.9 g/dL Globulin 4.1 Albumin/Globulin Ratio 0.463 Bedside Glucose 378 381 Test 07/10/21 07:07 07/10/21 08:13 07/10/21 08:17 07/10/21 09:12 Bedside Glucose 328 270 332 Sodium Level 134 mmol/L Potassium Level 3.7 mmol/L Chloride Level 99.0 mmol/L Carbon Dioxide Level 22.8 mmol/L Glucose Level 340 mg/dL Blood Urea Nitrogen 23 mg/dL Creatinine 1.03 mg/dL Calcium Level 8.0 mg/dL Anion Gap 15.9 Estimated GFR () 96.3 Est GFR (CKD-EPI)(Non-Afr Swedish) 79.6 BUN/Creatinine Ratio 22.0 Current Medications Medications (Trade) Dose Ordered Sig/Robby PRN Reason Start Time Stop Time Status Last Admin Albuterol/ Ipratropium (Duo 0.5-3(2.5) Mg/3 ml) 3 ml RTQ4 07/09/21 21:00 08/08/21 20:59 07/10/21 08:48 Azithromycin 500 mg/Sodium Chloride 250 ml @ 175 mls/hr Q24HRS 07/09/21 19:00 08/08/21 18:59 07/09/21 19:00 Dextrose (Dextrose 50%-Water Syringe) 25 ml STAT PRN hypoglycemia 07/09/21 22:00 08/08/21 21:59 Dextrose (Dextrose 50%-Water Syringe) 25 ml STAT PRN HYPOGLYCEMIA 07/09/21 23:30 08/08/21 23:29 Enoxaparin Sodium (Lovenox) 40 mg Q24HRS 07/09/21 22:00 08/08/21 21:59 07/09/21 22:00 Hydralazine HCl (Apresoline) 10 mg Q6HR PRN HYPERTENSION 07/09/21 22:00 08/08/21 21:59 Insulin Human Lispro (Humalog) 0-140 0 Units 141-200... ACHS 07/10/21 07:30 08/09/21 07:29 Hold Insulin Human Regular 100 unit/ Sodium Chloride 100 ml @ 0 mls/hr TITRATE 07/10/21 01:30 08/09/21 01:29 07/10/21 00:02 Lorazepam (Ativan) 1 mg Q4HR PRN ANXIETY 07/09/21 22:00 08/08/21 21:59 07/09/21 23:50 Morphine Sulfate (Morphine Sulfate) 1 mg Q6 PRN PAIN 4 - 6 07/09/21 19:00 08/08/21 18:59 Morphine Sulfate (Morphine Sulfate) 2 mg Q6 PRN PAIN 7 - 10 07/09/21 20:00 08/08/21 19:59 07/09/21 21:20 Ondansetron HCl (Zofran) 4 mg Q4H PRN NAUSEA / VOMITING 07/09/21 23:30 08/08/21 23:29 Ondansetron HCl (Zofran) 4 mg Q6HR PRN NAUSEA / VOMITING 07/09/21 19:00 08/08/21 18:59 07/09/21 21:20 Remdesivir 100 mg/ Sodium Chloride 120 ml @ 111.111 mls/hr Q24HRS 07/11/21 09:00 07/14/21 10:05 LEVEL 1 SEPSIS INFECTION CRITE: Abdominal Pain, Cough/Shortness of Breath LEVEL 2-SIRS (LIST ALL THAT AP: RR>20/min, HR>90/min, WBC>51231 Respiratory Evidence: Need for O2 to keep>90%, O2 SAT<90room air, New Prescr. BIPAP O2 Sat by Pulse Oximetry: 94 Oxygen Flow Rate: 45.00 Assessment/Plan Assessment/Plan Assessment/Plan Pneumonia due to COVID-19 infection Acute respiratory failure DKA -Currently on BiPAP Continue anticoagulation Correct DKA Remdesivir, steroid, antibiotic ABG ADELE IZQUIERDO MD Jul 10, 2021 10:01
--- NOTE | 2021-07-10 10:27 | TELE.CONS ---
Review of Systems Allergies: Coded Allergies: No Known Drug Allergies (Verified Allergy, Unknown, 07/10/21) VITALS REVIEW VITALS Vital Sign - Last 24 Hours 07/10/21 07/10/21 07/10/21 07/10/21 08:00 08:49 08:50 08:51 Pulse 103 103 103 Resp 31 31 31 Pulse Ox 93 93 93 O2 Delivery Bi-pap Bi-pap O2 Flow Rate 100.00 FiO2 100 100 07/10/21 07/10/21 08:52 08:53 Pulse 108 Resp 28 Pulse Ox 94 O2 Flow Rate 45.00 FiO2 100 Intake and Output 07/10/21 07:00 Intake Total 1000 ml Output Total 2100 ml Balance -1100 ml VTE VTE Risk Score VTE Risk: Score 0-1 = Low Risk (Aggressive mobilization; early ambulation; no VTE prophylaxis required) Score 2: Moderate Risk (Intermittent/Pneumatic Compression Device OR Lovenox/Heparin/Coumadin) Score 3-4: High Risk (Intermittent/Pneumatic Compression Device AND Lovenox/Heparin/Coumadin) Score > or =5: Highest Risk (Intermittent/Pneumatic Compression Device AND Lovenox/Heparin/Coumadin) Assessment/Plan Assessment/Plan Assessment/Plan 41 YOM with PMHx of DM and obesity who presents for SOB. Pt is not covid vaccinated and is noted to have SOB and presents with COVID PNA. PT is now on nrb and high flow but had desat to 60% and was placed on bipap 100%. PT was also noted to have elevated AG and FS of 400 with nausea. PT was started on insulin gtt for DKA protocol. PT complains on N/V. COVID-19 PNA and ARDS DKA ?CHF DM Obesity Combination of COVID-ARDS and DKA with acidosis increases respiratory load, pt more tenuous. High intubation risk. current settings 16/8, TV 800ml, MV 20-26LPM, FiO2 100% Plan: recheck ABG now Intubation watch Encourage self-proning Dexamethasone 6mg RDV Check procalcitonin and D-Dimer Empiric ABThx with ceftriaxone and azithromycin Follow Cx Check BNP TTE Cardiology c/s Continue insulin DKA protocol Once AG closes would d/c IVF SUP VTE prophylaxis Audiovisual assessment through mobile HIPAA compliant Video Cart Setup. Plan of care discussed with bedside KIRSTIE Gaytan. CCT 60min THEODORE SILVERIO MD Jul 10, 2021 10:27
[2021-07-10 10:29] LABS: ABG PH 7.431 (7.350-7.450)
[2021-07-10 10:30] LABS: ABG PCO2 32.6 mmHg (35.0-45.0); BE(B) -2.2 mmol/L (-2.0-2.0); HCO3act 21.2 mmol/L (22.0-26.0); pO2 50.3 mmHg (80.0-100.0)
[2021-07-10] MEDS: PEPCID IV SCH ×2 (10:30→21:00)
[2021-07-10] MEDS: ROCEPHIN 1,000 MG in NS 100ML 100 ML IV SCH (11:14)
[2021-07-10 11:43] LABS: ABG PCO2 33.2 mmHg (35.0-45.0); ABG PH 7.422 (7.350-7.450); BE(B) -2.5 mmol/L (-2.0-2.0); HCO3act 21.1 mmol/L (22.0-26.0); pO2 76.1 mmHg (80.0-100.0)
[2021-07-10 12:24] LABS: CARBON DIOXIDE 23.4 mmol/L (20.0-32)
[2021-07-10] MEDS ORDERED: LASIX IV STA (13:11)
[2021-07-10] MEDS ORDERED: LASIX ONE (13:12)
[2021-07-10] MEDS ORDERED: HEPARIN SQ SCH (14:00)
--- NOTE | 2021-07-10 14:47 | DIREP ---
PROCEDURE:CT PULMONARY ANGIOGRAM TECHNIQUE:Following the intravenous administration of contrast material, axial cuts were obtained through the chest. Multiplanar / 3-D reconstructions are provided. Satisfactory pulmonary arterial contrast opacification was achieved. The images were viewed at lung and soft tissue settings. COMPARISON:[facility], , XRAY CHEST SINGLE VW, 07/10/2021, 07:18 AM. INDICATIONS:SOB, ELEVATED D-DIMER FINDINGS: PULMONARY ARTERIES:There are findings of a saddle embolus extending into the right and left main pulmonary arteries. Additionally, there is a large filling defect in the right lower lobe pulmonary artery and right upper lobe pulmonary artery. Small filling defect is also seen throughout the left lower lobe pulmonary artery. LUNGS:Diffuse multifocal infiltrates and ground-glass opacities are scattered throughout both lungs. PLEURA:Normal. CARDIAC:Normal size heart and normal pulmonary vascularity. THORACIC AORTA:Normal. MEDIASTINUM:Normal. BONES:Mild degenerative changes are seen in the thoracic spine. THYROID:Normal. OTHER:No additional findings. CONCLUSION: 1. There are findings of multiple pulmonary emboli with a saddle embolus and large filling defects in the right lower lobe and right upper lobe pulmonary arteries and small filling defects throughout the left lower lobe pulmonary artery. 2. Diffuse multifocal infiltrates and ground-glass opacities are scattered throughout both lungs. The findings are commonly reported imaging features of COVID-19 pneumonia. This report was called by telephone at 2:43 pm on July 10, 2021 to ICU nurse to notify Brayden Vu . Dictated by: Avinash Cameron M.D. On 07/10/2021 at 02:33 PM
[2021-07-10 16:41] LABS: CARBON DIOXIDE 22.3 mmol/L (20.0-32)
[2021-07-10] MEDS ORDERED: LACTATED RINGERS 1,000 ML ONE (17:27)
[2021-07-10] MEDS: LACTATED RINGERS 1,000 ML IV SCH (18:00)
[2021-07-10] MEDS: LOVENOX SQ SCH (18:00)
[2021-07-10] MEDS: ZOFRAN IV PRN (18:20)
[2021-07-10 18:26] LABS: ABG PCO2 30.8 mmHg (35.0-45.0); ABG PH 7.394 (7.350-7.450); BE(B) -5.3 mmol/L (-2.0-2.0); HCO3act 18.4 mmol/L (22.0-26.0); pO2 164.6 mmHg (80.0-100.0)
[2021-07-10] MEDS: ATIVAN IV PRN (18:32)
--- NOTE | 2021-07-10 18:40 | NUR ---
CHANGE IN BIPAP SETTINGS - Per Dr. Vu, change bipap settings to 14/8, decrease fio2 as tolerated/per protocol; RT Dejah to repeat orders and Dr. Vu acknowledged; changes made to bipap settings Addendum: 07/10/21 at 1841 by Dejah Ogden, RENETTA, Contract RT Amended: Links added.
--- NOTE | 2021-07-10 19:03 | PCM.ECHO ---
APPROVED REPORT EXAM: Comprehensive 2D, Doppler, and color-flow Echocardiogram. Patient Location: IN-PATIENT Indications Congestive Heart Failure 2D Dimensions LVOT Diameter 2.21 (1.8-2.4cm) LVEF(%) 56.63 (>50%) M-Mode Dimensions RVDd 2.30 (2.1-3.2cm) Left Atrium(MM) 3.70 (2.5-4.0cm) IVSd 1.40 (0.7-1.1cm) Aortic Root 3.65 (2.2-3.7cm) LVDd 4.50 (4.0-5.6cm) Aortic Cusp Exc 2.40 (1.5-2.0cm) PWd 0.75 (0.7-1.1cm) MV EPSS 0.66 (<0.5cm) IVSs 1.75 cm FS (%) 31.00 % LVDs 3.10 (2.0-3.8cm) ESV(Teich) 38.28 ml PWs 1.55 cm LVEF(%) 58.86 (>50%) Volumes Biplane 2D LV Volumes Biplane 2D LA Volumes LVEDv A4C 112.14 mL LA ESV Index LVESv A4C 48.64 mL Aortic Valve AoV Peak Ricco. 0.85 m/s AoV VTI 12.55 cm AO Peak GR. 3.10 mmHg AO Mean GR. 1.75 mmHg LVOT VTI 15.56 cm LVOT Peak Ricco. 0.83 m/s SOHAN(VTI)/BSA 4.76 cm2/m2 SOHAN (VTI) 4.76 cm2 Mitral Valve MV E Velocity 0.65m/s MR Peak Gr. 8.10mmHg MV A Velocity 0.70m/s TDI Lateral E' P. V 0.10m/s Medial E' P. V 0.09m/s Pulmonary Valve PV Peak Velocity 0.55m/s PV Peak Grad. 1.25mmHg RVOT VTI 11.85cm Tricuspid Valve TR P. Velocity 3.60m/s RAP ESTIMATE 10.00mmHg TR Peak Gr. 53.20mmHg RVSP 63.20mmHg LEFT VENTRICLE The left ventricle is normal size. The left ventricular systolic function is normal. The left ventricular ejection fraction is within the normal range. There is normal left ventricular wall thickness. There is normal LV segmental wall motion. The left ventricular diastolic function is normal. There is no ventricular septal defect visualized. No left ventricle thrombus noted on this study. LVEF is 60-65%. RIGHT VENTRICLE The right ventricle is normal size. The right ventricular systolic function is normal. There is normal right ventricular wall thickness. ATRIA The left atrium size is normal. The right atrium size is normal. The interatrial septum is intact with no evidence for an atrial septal defect. AORTIC VALVE The aortic valve is normal in structure. There is no aortic valvular stenosis. No aortic regurgitation is present. There is no aortic valvular vegetation. MITRAL VALVE The mitral valve is normal in structure. There is no mitral valve stenosis. Mild mitral regurgitation. There is no evidence of mitral valve vegetations. TRICUSPID VALVE The tricuspid valve is normal in structure. There is no tricuspid valve stenosis. Moderate tricuspid regurgitation. There is no tricuspid valve vegetations. PULMONIC VALVE Pulmonic valve is not well visualized. There is no pulmonic valvular stenosis. Mild pulmonic regurgitation. GREAT VESSELS The aortic root is normal in size. Pulmonary artery is not well visualized. Aortic arch is not well visualized. The IVC is normal in size and collapses >50% with inspiration. PERICARDIUM There is no pericardial effusion. There is no pleural effusion. Other Information Study Quality: Fair <Conclusion> The left ventricular systolic function is normal. LVEF is 60-65%. Mild mitral regurgitation. Moderate tricuspid regurgitation. Mild pulmonic regurgitation. Electronically signed by : NGUYỄN CHOWDHURY. 07/10/2021 19:03:18
[2021-07-10 20:13] LABS: CARBON DIOXIDE 21.4 mmol/L (20.0-32)
[2021-07-10] MEDS ORDERED: NS 250ML 250 ML ONE (20:55)
[2021-07-10] MEDS: ZITHROMAX 500 MG in NS 250ML 250 ML IV SCH (21:00)
[2021-07-10] MEDS ORDERED: REMDESIVIR (EUA) 100 MG in NS 100ML 100 ML IV SCH (22:00)
[2021-07-11] VITALS (81 sets, daily range): BP systolic 95–148; BP diastolic 47–108
[2021-07-11 01:30] LABS: CARBON DIOXIDE 22.3 mmol/L (20.0-32)
[2021-07-11] MEDS: DUO 0.5-3(2.5) MG/3 ML IH SCH ×3 (01:30→09:00)
[2021-07-11] MEDS ORDERED: NS 100ML 100 ML IV ONE (01:33)
[2021-07-11] MEDS ORDERED: HUMULIN R ONE (01:39)
[2021-07-11] MEDS: LACTATED RINGERS 1,000 ML IV SCH ×3 (02:00→18:00)
[2021-07-11] MEDS ORDERED: D5W-1/2 NS/KCL 20MEQ 1,000 ML IV PRN (02:00)
[2021-07-11] MEDS ORDERED: D5W-1/2 NS/KCL 20MEQ 1,000 ML ONE (02:07)
[2021-07-11] MEDS: HUMULIN R 100 UNIT in NS 100ML 100 ML IV SCH (03:17)
[2021-07-11 04:29] LABS: BASOPHIL % 0.2 % (0.0-0.2); LYMPHOCYTES # 0.63 10^3/uL1 (1.0-4.8); LYMPHOCYTES % 5.2 % (24.0-44.0); MEAN CORP HGB 28.6 pg (26-34); MONOCYTES # 1.1 10^3/uL (0.3-0.8); MONOCYTES % 8.9 % (5.0-12.0); NEUTROPHIL # 10.3 10^3/uL (1.8-7.7); NEUTROPHILS % 85.7 % (41.0-85.0); PLATELET COUNT 113 10^3/uL (150-400); RED CELL DISTRIBUTION WIDTH 13.4 % (11.5-14.5)
[2021-07-11 04:38] LABS: CARBON DIOXIDE 22.5 mmol/L (20.0-32)
[2021-07-11 05:19] LABS: ABG PCO2 34.2 mmHg (35.0-45.0); ABG PH 7.315 (7.350-7.450); BE(B) -8.1 mmol/L (-2.0-2.0); pO2 120.1 mmHg (80.0-100.0)
--- NOTE | 2021-07-11 05:32 | NUR ---
Approx 0500 RT came up to do a breathing tx and bipap check and RN was with patient. He had pulled off his mask and was very diaphoretic. His sats had come up already to 99% but ABG drawn to see where he was at on his other parameters. Pt very confused and did not know where he was. ABG. SEE ABG for results.
[2021-07-11] MEDS: LOVENOX SQ SCH ×3 (06:23→21:00)
[2021-07-11 06:58] LABS: LYMPHOCYTE 3 % (25-36); SEGMENTED NEUTROPHILS 97 % (31-76)
--- NOTE | 2021-07-11 07:20 | NUR ---
INSULIN DRIP TITRATED DOWN TO 6UNITS PER COLUMN 3 ON DRIP PROTOCOL FOR SUGAR OF 273 WHITNESSED BY THIS NURSE AND GRETA THACKER
[2021-07-11 08:16] LABS: CARBON DIOXIDE 23.1 mmol/L (20.0-32)
[2021-07-11] MEDS: DEXAMETHASONE 10 MG/ML VIAL IV SCH (09:00)
[2021-07-11] MEDS: REMDESIVIR (EUA) 100 MG in NS 100ML 100 ML IV SCH (09:00)
[2021-07-11] MEDS: PEPCID IV SCH ×2 (09:00→21:00)
[2021-07-11] MEDS: ZOFRAN IV PRN ×2 (09:00→17:00)
[2021-07-11] MEDS: ROCEPHIN 1,000 MG in NS 100ML 100 ML IV SCH (09:36)
--- NOTE | 2021-07-11 11:29 | PRM.PN ---
Subjective Subjective Date: Jul 11, 2021 Time: 08:12 Subjective Patient is a 41-year-old who was transferred from another facility to the hospital for pneumonia due to COVID-19 infection and acute respiratory failure requiring high level of oxygen therapy admitted to the ICU for further evaluati on and management. Upon arrival patient was noted to be in DKA and was started on appropriate management.Patient is currently on BiPAP 16/8 satting between 89 to 93%.Review of medical records indicate patient with bilateral pneumonia worse on the left lower lobe and noted to have elevated WBC of 14. Patient will benefit from IV antibiotic. During yesterday based on blood work D-dimer and difficulty with oxygenation CTA of the chest to rule out pulmonary embolism was obtained reporting multiple bilateral pulmonary emboli with saddle. VTE VTE Risk Score VTE Risk: Score 0-1 = Low Risk (Aggressive mobilization; early ambulation; no VTE prophylaxis required) Score 2: Moderate Risk (Intermittent/Pneumatic Compression Device OR Lovenox/Heparin/Coumadin) Score 3-4: High Risk (Intermittent/Pneumatic Compression Device AND Lovenox/Heparin/Coumadin) Score > or =5: Highest Risk (Intermittent/Pneumatic Compression Device AND Lovenox/Heparin/Coumadin) Review of Systems Constitutional: No: Fever, Chills, Sweats, Weakness, Malaise, Other Eyes: No: Pain, Vision change, Conjunctivae inflammation, Eyelid inflammation, Other, Redness ENT: No: Ear pain, Ear discharge, Nose pain, Nose discharge, Nose congestion, Mouth pain, Mouth swelling, Throat pain, Throat swelling, Other Respiratory: Cough, Shortness of breath, SOB with excertion, Pleuritic Pain Cardiovascular: Chest Pain; No: Palpitations, Orthopnea, Paroxysmal Noc. Dyspnea, Edema, Lt Headedness, Other Gastrointestinal: No: Nausea, Vomiting, Abdominal Pain, Diarrhea, Constipation, Melena, Hematochezia, Other Genitourinary: No Dysuria, No Frequency, No Incontinence, No Hematuria, No Retention, No Other Musculoskeletal: No: other, neck pain, shoulder pain, arm pain, back pain, hand pain, leg pain, foot pain Skin: No: Rash, Lesions, Jaundice, Bruising, Other Neurological: No: Weakness, Numbness, Incoordination, Change in speech, Confusion, Seizures, Other Allergies: Coded Allergies: No Known Drug Allergies (Verified Allergy, Unknown, 07/10/21) Objective Vitals and I/O Vital Sign - Last 24 Hours 07/11/21 07/11/21 07/11/21 07/11/21 07:00 07:07 07:15 07:22 Pulse 106 106 103 104 Resp 25 24 24 25 B/P (MAP) 105/64 (78) 106/64 (78) Pulse Ox 90 95 92 92 07/11/21 07/11/21 07/11/21 07/11/21 07:30 07:37 07:45 07:52 Pulse 102 102 102 102 Resp 25 27 25 25 B/P (MAP) 109/66 (80) 112/59 (76) Pulse Ox 92 92 92 93 07/11/21 07/11/21 07/11/21 07/11/21 08:00 08:00 08:15 08:22 Temp 97.8 Pulse 102 104 103 Resp 23 28 26 B/P (MAP) 107/61 (76) Pulse Ox 93 93 92 O2 Delivery Bi-pap O2 Flow Rate 80.00 07/11/21 07/11/21 07/11/21 07/11/21 08:30 08:37 08:45 08:45 Pulse 102 102 98 Resp 25 25 B/P (MAP) 98/58 (71) Pulse Ox 93 92 93 96 07/11/21 07/11/21 07/11/21 07/11/21 08:45 08:45 08:45 08:52 Pulse 102 96 102 102 Resp 26 28 B/P (MAP) 101/60 (74) Pulse Ox 90 99 90 93 O2 Delivery S/T Bi-pap FiO2 80 80 07/11/21 07/11/21 07/11/21 07/11/21 09:00 09:07 09:15 09:22 Temp 97.6 Pulse 101 101 100 Resp 55 30 26 B/P (MAP) 119/79 (92) 122/80 (94) Pulse Ox 86 88 95 07/11/21 07/11/21 07/11/21 07/11/21 09:30 09:37 09:45 09:52 Pulse 101 100 99 99 Resp 25 26 25 26 B/P (MAP) 111/70 (84) 116/69 (85) Pulse Ox 97 97 98 98 1/12/07/11/21 07/11/21 07/11/21 10:00 10:07 10:15 10:30 Temp 97.9 Pulse 98 99 98 97 Resp 27 25 B/P (MAP) 106/70 (82) Pulse Ox 99 98 98 98 07/11/21 07/11/21 07/11/21 07/11/21 10:37 10:45 10:52 11:00 Pulse 97 95 95 94 Resp 24 21 25 B/P (MAP) 121/78 (92) 108/71 (83) Pulse Ox 98 97 96 98 Intake and Output 07/11/21 06:59 Intake Total 100 ml Output Total 1100 ml Balance -1000 ml General: Alert, Oriented X3 HEENT: Atraumatic, PERRLA Neck: Supple, No JVD, No thyromegaly Lungs: Other (Decreased left lower lung sound) Heart: Regular rate, Normal S1, Normal S2 Abdomen: Normal bowel sounds, Soft, No tenderness Extremities: No clubbing, No cyanosis Skin: No rashes, No breakdown, No significant lesion All Results(Lab/Rad) Laboratory Tests Test 07/09/21 22:20 07/09/21 23:45 07/10/21 00:05 07/10/21 03:25 White Blood Count 14.5 10^3/uL Red Blood Count 4.62 10^6/uL Hemoglobin 12.8 g/dL Hematocrit 40.0 % Mean Corpuscular Volume 86.6 fL Mean Corpuscular Hemoglobin 27.7 pg Mean Corpuscular Hemoglobin Concent 32.0 g/dL Red Cell Distribution Width 13.3 % Platelet Count 148 10^3/uL Mean Platelet Volume 10.4 fL Neutrophils (%) (Auto) 85.7 % Lymphocytes (%) (Auto) 4.4 % Monocytes (%) (Auto) 7.4 % Neutrophils # (Auto) 12.4 10^3/uL Lymphocytes # (Auto) 0.63 10^3/uL1 Monocytes # (Auto) 1.1 10^3/uL Absolute Immature Granulocyte (auto 0.35 10^3 u/L Absolute Eosinophils (auto) 0.0 10^3/uL Immature Granulocytes % 2.40 % Eosinophils % 0.0 % Basophils % 0.1 % Basophils # 0.0 10^3/uL Sodium Level 137 mmol/L Potassium Level 4.0 mmol/L Chloride Level 100.0 mmol/L Carbon Dioxide Level 12.0 mmol/L Anion Gap 29.0 Blood Urea Nitrogen 22 mg/dL Creatinine 0.98 mg/dL Estimated GFR () 102.0 Est GFR (CKD-EPI)(Non-Afr Palestinian) 84.3 BUN/Creatinine Ratio 22.0 Glucose Level 422 mg/dL Calcium Level 7.0 mg/dL Phosphorus Level 3.2 mg/dL Magnesium Level 1.9 mg/dL Total Bilirubin 0.6 mg/dL Aspartate Amino Transf (AST/SGOT) 22 U/L Alanine Aminotransferase (ALT/SGPT) 16 U/L Alkaline Phosphatase 183 U/L Total Protein 5.3 g/dL Albumin 1.8 g/dL Globulin 3.5 Albumin/Globulin Ratio 0.514 Acetone, Semi-Quantitative LARGE Lactic Acid Level 2.5 mmol/L Blood Gas Sample Site LR Blood Gas pH 7.202 Blood Gas PCO2 29.5 mmHg Blood Gas PO2 78.0 mmHg Blood Gas HCO3 11.3 mmol/L Blood Gas Base Excess -15.2 mmol/L Filiberto Test POSITIVE Arterial Blood Oxygen Saturation 93 % Deoxyhemoglobin 6.9 % Carboxyhemoglobin 0.8 % Methemoglobin 0.4 % Total Hemoglobin 15.1 % Total Oxygen Concentration 19.5 % Oxygen Delivery Method (LAB) BIPAP ST 16/[address] Mode [address] Blood Gas Vent Rate 25 FiO2 100 % Total Carbon Dioxide 12.2 mmol/L Lactic Acid Followup at 2 Hours 1.8 mmol/L Test 07/10/21 04:16 07/10/21 04:46 07/10/21 05:33 07/10/21 07:07 White Blood Count 14.8 10^3/uL Red Blood Count 4.66 10^6/uL Hemoglobin 13.5 g/dL Hematocrit 39.0 % Mean Corpuscular Volume 83.7 fL Mean Corpuscular Hemoglobin 29.0 pg Mean Corpuscular Hemoglobin Concent 34.6 g/dL Red Cell Distribution Width 13.2 % Platelet Count 149 10^3/uL Mean Platelet Volume 10.8 fL Neutrophils (%) (Auto) 86.3 % Lymphocytes (%) (Auto) 5.3 % Monocytes (%) (Auto) 8.3 % Neutrophils # (Auto) 12.8 10^3/uL Lymphocytes # (Auto) 0.78 10^3/uL1 Monocytes # (Auto) 1.2 10^3/uL Absolute Immature Granulocyte (auto 0.31 10^3 u/L Absolute Eosinophils (auto) 0.0 10^3/uL Immature Granulocytes % 2.10 % Eosinophils % 0.0 % Basophils % 0.1 % Basophils # 0.0 10^3/uL Sodium Level 132 mmol/L Potassium Level 3.9 mmol/L Chloride Level 97.0 mmol/L Carbon Dioxide Level 16.6 mmol/L Anion Gap 22.3 Blood Urea Nitrogen 24 mg/dL Creatinine 1.13 mg/dL Estimated GFR () 86.5 Est GFR (CKD-EPI)(Non-Afr Palestinian) 71.5 BUN/Creatinine Ratio 21.0 Glucose Level 418 mg/dL Calcium Level 7.9 mg/dL Total Bilirubin 0.5 mg/dL Aspartate Amino Transf (AST/SGOT) 31 U/L Alanine Aminotransferase (ALT/SGPT) 21 U/L Alkaline Phosphatase 213 U/L Total Protein 6.0 g/dL Albumin 1.9 g/dL Globulin 4.1 Albumin/Globulin Ratio 0.463 Bedside Glucose 378 381 328 Test 07/10/21 08:13 07/10/21 08:17 07/10/21 09:12 Sodium Level 134 mmol/L Potassium Level 3.7 mmol/L Chloride Level 99.0 mmol/L Carbon Dioxide Level 22.8 mmol/L Glucose Level 340 mg/dL Blood Urea Nitrogen 23 mg/dL Creatinine 1.03 mg/dL Calcium Level 8.0 mg/dL Anion Gap 15.9 Estimated GFR () 96.3 Est GFR (CKD-EPI)(Non-Afr Palestinian) 79.6 BUN/Creatinine Ratio 22.0 Bedside Glucose 270 332 Current Medications Medications (Trade) Dose Ordered Sig/Robby Route PRN Reason Start Time Stop Time Status Last Admin Dose Admin Ondansetron HCl (Zofran) 4 mg STK-MED ONCE .ROUTE 07/09/21 18:30 07/09/21 18:31 DC Ondansetron HCl (Zofran) 4 mg Q6HR PRN IV NAUSEA / VOMITING 07/09/21 19:00 08/08/21 18:59 07/09/21 21:20 Azithromycin 500 mg/Sodium Chloride 250 ml @ 175 mls/hr Q24HRS IV 07/09/21 19:00 08/08/21 18:59 07/09/21 19:00 Albuterol/ Ipratropium (Duo 0.5-3(2.5) Mg/3 ml) 3 ml RTQ4 IH 07/09/21 21:00 08/08/21 20:59 07/10/21 08:48 Morphine Sulfate (Morphine Sulfate) 1 mg Q6 PRN IV PAIN 4 - 6 07/09/21 19:00 08/08/21 18:59 Morphine Sulfate (Morphine Sulfate) 2 mg Q6 PRN IV PAIN 7 - 10 07/09/21 20:00 08/08/21 19:59 07/09/21 21:20 Sodium Chloride 250 ml @ ud STK-MED ONCE .ROUTE 07/09/21 20:52 07/09/21 20:52 DC Metoprolol Tartrate (Lopresser) 5 mg STK-MED ONCE .ROUTE 07/09/21 21:41 07/09/21 21:42 DC Metoprolol Tartrate (Lopresser) 5 mg STAT STAT IVP 07/09/21 21:43 07/09/21 22:00 DC 07/09/21 21:43 Insulin Human Lispro (Humalog) 0-140 0 Units 141-200... ACHS SQ 07/10/21 07:30 08/09/21 07:29 Hold Dextrose (Dextrose 50%-Water Syringe) 25 ml STAT PRN IV hypoglycemia 07/09/21 22:00 08/08/21 21:59 Enoxaparin Sodium (Lovenox) 40 mg Q24HRS SQ 07/09/21 22:00 08/08/21 21:59 07/09/21 22:00 Hydralazine HCl (Apresoline) 10 mg Q6HR PRN IV HYPERTENSION 07/09/21 22:00 08/08/21 21:59 Remdesivir 200 mg/ Sodium Chloride 140 ml @ 120.69 mls/ hr OT STAT IV 07/09/21 21:37 07/10/21 08:10 DC Remdesivir 100 mg/ Sodium Chloride 120 ml @ 111.111 mls/hr Q24HRS IV 07/10/21 22:00 07/10/21 08:22 DC Lorazepam (Ativan) 1 mg Q4HR PRN IM ANXIETY 07/09/21 22:00 08/08/21 21:59 07/09/21 23:50 Insulin Human Lispro (Humalog) 18 unit OT ONCE SQ 07/09/21 23:30 07/09/21 23:31 DC 07/09/21 23:30 Ondansetron HCl (Zofran) 4 mg Q4H PRN IV NAUSEA / VOMITING 07/09/21 23:30 08/08/21 23:29 Insulin Human Regular 100 unit/ Sodium Chloride 100 ml @ 5 mls/hr IV 07/09/21 23:30 07/10/21 01:10 DC Dextrose (Dextrose 50%-Water Syringe) 25 ml STAT PRN IV HYPOGLYCEMIA 07/09/21 23:30 08/08/21 23:29 Sodium Chloride 100 ml @ ud STK-MED ONCE IV 07/09/21 23:34 07/09/21 23:35 DC Insulin Human Regular (Humulin R) 1 unit STK-MED ONCE .ROUTE 07/09/21 23:35 07/09/21 23:35 DC Sodium Chloride 1,000 ml @ ud STK-MED ONCE .ROUTE 07/09/21 23:55 07/09/21 23:56 DC Insulin Human Regular 100 unit/ Sodium Chloride 100 ml @ 0 mls/hr TITRATE IV 07/10/21 01:30 08/09/21 01:29 07/10/21 00:02 Remdesivir 200 mg/ Sodium Chloride 140 ml @ 120.69 mls/ hr OT ONCE IV 07/10/21 09:00 07/10/21 10:09 07/10/21 09:00 Remdesivir 100 mg/ Sodium Chloride 120 ml @ 111.111 mls/hr Q24HRS IV 07/11/21 09:00 07/14/21 10:05 Sodium Chloride 100 ml @ ud STK-MED ONCE IV 07/10/21 09:37 07/10/21 09:37 DC Course Sepsis Screening Results: Posi: POSITIVE++ Sepsis Qualifier/Stage: SEVERE SEPSIS RISK Vitals & review Data Vital Sign - Last 24 Hours 07/10/21 07/10/21 07/10/21 07/10/21 08:00 08:49 08:50 08:51 Pulse 103 103 103 Resp 31 31 31 Pulse Ox 93 93 93 O2 Delivery Bi-pap Bi-pap O2 Flow Rate 100.00 FiO2 100 100 07/10/21 07/10/21 08:52 08:53 Pulse 108 Resp 28 Pulse Ox 94 O2 Flow Rate 45.00 FiO2 100 Intake and Output 07/10/21 07:00 Intake Total 1000 ml Output Total 2100 ml Balance -1100 ml Laboratory Tests Test 07/09/21 00:54 07/09/21 22:20 07/09/21 23:45 07/10/21 00:05 Urine Collection Type CCMS Urine Color YELLOW Urine Appearance TURBID Urine Bilirubin 1+ Urine Ketones 4+ Urine Specific [place] 1.025 Urine pH 5.5 Urine Protein 2+ Urine Urobilinogen 0.2 E.U./dL Urine Nitrate NEGATIVE Urine Leukocyte Esterase NEGATIVE Urine Glucose (Auto)(UA) 500 mg/dL Urine Blood 2+ Urine RBC TooNumerousToCount RBC/HPF Urine WBC NONE SEEN WBC/HPF Urine Squamous Epithelial Cells FEW Urine Bacteria FEW White Blood Count 14.5 10^3/uL Red Blood Count 4.62 10^6/uL Hemoglobin 12.8 g/dL Hematocrit 40.0 % Mean Corpuscular Volume 86.6 fL Mean Corpuscular Hemoglobin 27.7 pg Mean Corpuscular Hemoglobin Concent 32.0 g/dL Red Cell Distribution Width 13.3 % Platelet Count 148 10^3/uL Mean Platelet Volume 10.4 fL Neutrophils (%) (Auto) 85.7 % Lymphocytes (%) (Auto) 4.4 % Monocytes (%) (Auto) 7.4 % Neutrophils # (Auto) 12.4 10^3/uL Lymphocytes # (Auto) 0.63 10^3/uL1 Monocytes # (Auto) 1.1 10^3/uL Absolute Immature Granulocyte (auto 0.35 10^3 u/L Absolute Eosinophils (auto) 0.0 10^3/uL Immature Granulocytes % 2.40 % Eosinophils % 0.0 % Basophils % 0.1 % Basophils # 0.0 10^3/uL Sodium Level 137 mmol/L Potassium Level 4.0 mmol/L Chloride Level 100.0 mmol/L Carbon Dioxide Level 12.0 mmol/L Anion Gap 29.0 Blood Urea Nitrogen 22 mg/dL Creatinine 0.98 mg/dL Estimated GFR () 102.0 Est GFR (CKD-EPI)(Non-Afr Palestinian) 84.3 BUN/Creatinine Ratio 22.0 Glucose Level 422 mg/dL Calcium Level 7.0 mg/dL Phosphorus Level 3.2 mg/dL Magnesium Level 1.9 mg/dL Total Bilirubin 0.6 mg/dL Aspartate Amino Transf (AST/SGOT) 22 U/L Alanine Aminotransferase (ALT/SGPT) 16 U/L Alkaline Phosphatase 183 U/L Total Protein 5.3 g/dL Albumin 1.8 g/dL Globulin 3.5 Albumin/Globulin Ratio 0.514 Acetone, Semi-Quantitative LARGE Lactic Acid Level 2.5 mmol/L Blood Gas Sample Site LR Blood Gas pH 7.202 Blood Gas PCO2 29.5 mmHg Blood Gas PO2 78.0 mmHg Blood Gas HCO3 11.3 mmol/L Blood Gas Base Excess -15.2 mmol/L Filiberto Test POSITIVE Arterial Blood Oxygen Saturation 93 % Deoxyhemoglobin 6.9 % Carboxyhemoglobin 0.8 % Methemoglobin 0.4 % Total Hemoglobin 15.1 % Total Oxygen Concentration 19.5 % Oxygen Delivery Method (LAB) BIPAP ST 16/[address] Blood Gas Vent Rate 25 FiO2 100 % Total Carbon Dioxide 12.2 mmol/L Test 07/10/21 03:25 07/10/21 04:16 07/10/21 04:46 07/10/21 05:33 Lactic Acid Followup at 2 Hours 1.8 mmol/L White Blood Count 14.8 10^3/uL Red Blood Count 4.66 10^6/uL Hemoglobin 13.5 g/dL Hematocrit 39.0 % Mean Corpuscular Volume 83.7 fL Mean Corpuscular Hemoglobin 29.0 pg Mean Corpuscular Hemoglobin Concent 34.6 g/dL Red Cell Distribution Width 13.2 % Platelet Count 149 10^3/uL Mean Platelet Volume 10.8 fL Neutrophils (%) (Auto) 86.3 % Lymphocytes (%) (Auto) 5.3 % Monocytes (%) (Auto) 8.3 % Neutrophils # (Auto) 12.8 10^3/uL Lymphocytes # (Auto) 0.78 10^3/uL1 Monocytes # (Auto) 1.2 10^3/uL Absolute Immature Granulocyte (auto 0.31 10^3 u/L Absolute Eosinophils (auto) 0.0 10^3/uL Immature Granulocytes % 2.10 % Eosinophils % 0.0 % Basophils % 0.1 % Basophils # 0.0 10^3/uL Sodium Level 132 mmol/L Potassium Level 3.9 mmol/L Chloride Level 97.0 mmol/L Carbon Dioxide Level 16.6 mmol/L Anion Gap 22.3 Blood Urea Nitrogen 24 mg/dL Creatinine 1.13 mg/dL Estimated GFR () 86.5 Est GFR (CKD-EPI)(Non-Afr Palestinian) 71.5 BUN/Creatinine Ratio 21.0 Glucose Level 418 mg/dL Calcium Level 7.9 mg/dL Total Bilirubin 0.5 mg/dL Aspartate Amino Transf (AST/SGOT) 31 U/L Alanine Aminotransferase (ALT/SGPT) 21 U/L Alkaline Phosphatase 213 U/L Total Protein 6.0 g/dL Albumin 1.9 g/dL Globulin 4.1 Albumin/Globulin Ratio 0.463 Bedside Glucose 378 381 Test 07/10/21 07:07 07/10/21 08:13 07/10/21 08:17 07/10/21 09:12 Bedside Glucose 328 270 332 Sodium Level 134 mmol/L Potassium Level 3.7 mmol/L Chloride Level 99.0 mmol/L Carbon Dioxide Level 22.8 mmol/L Glucose Level 340 mg/dL Blood Urea Nitrogen 23 mg/dL Creatinine 1.03 mg/dL Calcium Level 8.0 mg/dL Anion Gap 15.9 Estimated GFR () 96.3 Est GFR (CKD-EPI)(Non-Afr Palestinian) 79.6 BUN/Creatinine Ratio 22.0 Current Medications Medications (Trade) Dose Ordered Sig/Robby PRN Reason Start Time Stop Time Status Last Admin Albuterol/ Ipratropium (Duo 0.5-3(2.5) Mg/3 ml) 3 ml RTQ4 07/09/21 21:00 08/08/21 20:59 07/10/21 08:48 Azithromycin 500 mg/Sodium Chloride 250 ml @ 175 mls/hr Q24HRS 07/09/21 19:00 08/08/21 18:59 07/09/21 19:00 Dextrose (Dextrose 50%-Water Syringe) 25 ml STAT PRN hypoglycemia 07/09/21 22:00 08/08/21 21:59 Dextrose (Dextrose 50%-Water Syringe) 25 ml STAT PRN HYPOGLYCEMIA 07/09/21 23:30 08/08/21 23:29 Enoxaparin Sodium (Lovenox) 40 mg Q24HRS 07/09/21 22:00 08/08/21 21:59 07/09/21 22:00 Hydralazine HCl (Apresoline) 10 mg Q6HR PRN HYPERTENSION 07/09/21 22:00 08/08/21 21:59 Insulin Human Lispro (Humalog) 0-140 0 Units 141-200... ACHS 07/10/21 07:30 08/09/21 07:29 Hold Insulin Human Regular 100 unit/ Sodium Chloride 100 ml @ 0 mls/hr TITRATE 07/10/21 01:30 08/09/21 01:29 07/10/21 00:02 Lorazepam (Ativan) 1 mg Q4HR PRN ANXIETY 07/09/21 22:00 08/08/21 21:59 07/09/21 23:50 Morphine Sulfate (Morphine Sulfate) 1 mg Q6 PRN PAIN 4 - 6 07/09/21 19:00 08/08/21 18:59 Morphine Sulfate (Morphine Sulfate) 2 mg Q6 PRN PAIN 7 - 10 07/09/21 20:00 08/08/21 19:59 07/09/21 21:20 Ondansetron HCl (Zofran) 4 mg Q4H PRN NAUSEA / VOMITING 07/09/21 23:30 08/08/21 23:29 Ondansetron HCl (Zofran) 4 mg Q6HR PRN NAUSEA / VOMITING 07/09/21 19:00 08/08/21 18:59 07/09/21 21:20 Remdesivir 100 mg/ Sodium Chloride 120 ml @ 111.111 mls/hr Q24HRS 07/11/21 09:00 07/14/21 10:05 LEVEL 1 SEPSIS INFECTION CRITE: Abdominal Pain, Cough/Shortness of Breath LEVEL 2-SIRS (LIST ALL THAT AP: RR>20/min, HR>90/min, WBC>12528 Respiratory Evidence: Need for O2 to keep>90%, O2 SAT<90room air, New Prescr. BIPAP O2 Sat by Pulse Oximetry: 98 Oxygen Flow Rate: 80.00 Assessment/Plan Assessment/Plan Assessment/Plan COVID-19 PNA and ARDS DKA Pulmonary emboli DM Obesity Plan: Follow-up with ABGs Encourage self-proning Dexamethasone 6mg Anticoagulation Check procalcitonin and D-Dimer Empiric ABThx with ceftriaxone and azithromycin Follow Cx Check BNP TTE Cardiology c/s Continue insulin DKA protocol SUP VTE prophylaxis ADELE IZQUIERDO MD Jul 11, 2021 11:29
--- NOTE | 2021-07-11 11:38 | DIREP ---
PROCEDURE:CHEST 1 VIEW COMPARISON:[facility], CR, XRAY CHEST SINGLE VW, 07/10/2021, 07:18 AM. INDICATIONS:Covid pneumonia FINDINGS: LUNGS/PLEURA:Multifocal infiltrates and ground-glass opacities are scattered throughout both lungs not significantly changed from prior exam. VASCULATURE:Normal. Unremarkable pulmonary vasculature. CARDIAC:Normal. No cardiac silhouette abnormality or cardiomegaly. MEDIASTINUM:Normal. No visible mass or adenopathy. BONES:Normal. No fracture or visible bony lesion. OTHER:Negative. CONCLUSION:There are diffuse bilateral multifocal infiltrates and ground-glass opacities scattered throughout both lungs without significant interval change. Dictated by: Avinash Cameron M.D. on 07/11/2021 at 11:36 AM
[2021-07-11] MEDS ORDERED: DUO 0.5-3(2.5) MG/3 ML IH PRN (12:00)
[2021-07-11] MEDS: LANTUS SQ SCH ×2 (12:00→23:28)
[2021-07-11] MEDS ORDERED: KLOR-CON 10 PO SCH (12:00)
[2021-07-11 12:43] LABS: CARBON DIOXIDE 21.9 mmol/L (20.0-32)
--- NOTE | 2021-07-11 12:44 | NUR ---
1230 20 units insulin glargine given as ordered by .
--- NOTE | 2021-07-11 14:15 | NUR ---
1410 Decreased Fi02 to 70 % c/o RT.
--- NOTE | 2021-07-11 14:30 | NUR ---
1430 Reported bmp result taken at 1200 with anion gap of 16.2 from previous gap of 13.7. Ordered to stop insulin drip and maintenance fluid.
--- NOTE | 2021-07-11 14:46 | NUR ---
1430 Stopped Insulin drip and maintenance fluid as ordered by Dr. Palomo.
[2021-07-11] MEDS ORDERED: DEXTROSE 50%-WATER SYRINGE IV PRN (16:00)
[2021-07-11 17:00] LABS: CARBON DIOXIDE 20.3 mmol/L (20.0-32)
[2021-07-11] MEDS: HUMALOG SQ SCH (17:07)
--- NOTE | 2021-07-11 17:14 | TELE.CONS ---
Assessment/Plan Assessment/Plan Assessment/Plan This is a 41-year-old man who was admitted on 07/09/2021 with COVID pneumonia, saddle PE, and DKA. Overnight there were no major events reported. This morning, the patient is on BiPAP, 14/8, 80%. He was still on an insulin drip and D5 half-normal saline +20 meq K. On camera he appears comfortable. Blood pressure 115/80, pulse 94, respiratory rate 22, oxygen saturation 97%. Fluid balance was 100 mL in, 1100 mL out. EMR data reviewed. WBC 12.1 (decreasing). Hemoglobin 12.9, platelet 113. Last ABG was 7.31/34/120. Chemistry significant for BUN 21 and creatinine 0.80. Chest x-ray from this morning continue to demonstrate bilateral opacities consistent with COVID-pneumonia. Diagnosis: Saddle PE, COVID-pneumonia, DKA Management: COVID-specific therapies have included remdesivir and dexamethasone Patient is empirically on azithromycin and ceftriaxone Dexmedetomidine and Ativan as needed are ordered in case of agitated delirium, but this is not a major issue so far Acute hypoxic respiratory failure, managed with BiPAP. Continue to avoid positive fluid balance. Encourage self proning if possible. DKA. Glargine was ordered along with sliding scale insulin every 6 hours to transition off insulin drip. D5 drip also was discontinued. Continue full dose enoxaparin for saddle PE. Right heart strain was not described on CT imaging. Would recommend checking an echocardiogram. Stress ulcer prophylaxis with Pepcid Plan reviewed with bedside team. Patient seen through remote audiovisual assessment through HIPAA compliant setup. All labs, flowsheets, and images reviewed Cumulative nonprocedural critical care time spent in directed patient care = 60min CAT CONNOLLY MD Jul 11, 2021 17:14
--- NOTE | 2021-07-11 17:42 | NUR ---
1645 Ensure and water was given to patient. 1650 Patient started getting nauseous. 1700 Zofran given.
[2021-07-11] MEDS ORDERED: GENASYME PO STA (17:48)
[2021-07-11] MEDS: ZITHROMAX 500 MG in NS 250ML 250 ML IV SCH (18:02)
[2021-07-11] MEDS: MORPHINE SULFATE IV PRN ×3 (18:45→18:50)
--- NOTE | 2021-07-11 18:57 | NUR ---
1829 patient complained of chest pain described as pressure over his chest. notified Dr. Vu. Ordered to do troponin and EKG. Morphine 1mg IV given.
[2021-07-12] VITALS (91 sets, daily range): BP systolic 83–160; BP diastolic 45–114
--- NOTE | 2021-07-12 01:09 | PCM.EKG ---
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
[2021-07-12] MEDS: LACTATED RINGERS 1,000 ML IV SCH ×2 (02:00→10:00)
[2021-07-12 05:55] LABS: BASOPHIL % 0.1 % (0.0-0.2); LYMPHOCYTES # 0.92 10^3/uL1 (1.0-4.8); LYMPHOCYTES % 6.8 % (24.0-44.0); MEAN CORP HGB 27.9 pg (26-34); MONOCYTES % 7.5 % (5.0-12.0); NEUTROPHIL # 10.7 10^3/uL (1.8-7.7); NEUTROPHILS % 79.2 % (41.0-85.0); PLATELET COUNT 159 10^3/uL (150-400); RED CELL DISTRIBUTION WIDTH 13.7 % (11.5-14.5)
[2021-07-12 06:06] LABS: CARBON DIOXIDE 21.1 mmol/L (20.0-32)
[2021-07-12] MEDS: MORPHINE SULFATE IV PRN ×2 (06:15→06:30)
[2021-07-12] MEDS: HUMALOG SQ SCH ×3 (08:00→17:50)
[2021-07-12] MEDS: PEPCID IV SCH ×2 (08:11→21:00)
[2021-07-12] MEDS: REMDESIVIR (EUA) 100 MG in NS 100ML 100 ML IV SCH (08:12)
[2021-07-12] MEDS: DEXAMETHASONE 10 MG/ML VIAL IV SCH (08:12)
[2021-07-12] MEDS: LOVENOX SQ SCH ×2 (08:13→21:00)
--- NOTE | 2021-07-12 09:25 | DIET.OP ---
Nutrition Asmt/Malnutrit 2-17 Nutritional Screening: Malnutr/Diet Consult Diagnosis: COVID PNA Pertinent Medical Hx/Surgical: DKA, CHF, T2DM Subjective Information: Pt on bipap. PO intake poor. Not tolerating Ensure supplement provided, claims stomach hurts after attempting to consume it. Glucerna ordered. No PICC line available per RN. Received D5W, currently stopped. Glucose high. I/O negative. No wt changes. Current Diet Order/Nutrition S: 1800kcal ADA Patient /S.O: Cannot Verbalize Diet EDU Pertinent Meds azithromycin, hyralazine, remdesivir, ceftriaxone, pepcid, KCl, lovenox, lantus, humalog Pertinent Labs Hgb 13.8 L, BUN 26 H, Glu 353 H Height (Inches): 73 Current Weight: 304 %IBW: 165 Weight Status: Obese GI Symptoms: None Food Allergies: No Cultural/Ethnic/[employer]: none pertinent Usual Diet at Home: UTO Skin Integrity/Comment: No Current %PO: Negligible(<25%) BEE in Kcals: Adj WT of IBW Calories/Kcals/K-26 kcal/kg IBW Kcals Calculated: 2567-0231 kcal/day Protein: Adj WT of IBW Protein g/k.2-2.0 g/kg Protein Calculated: 100-167 g/day Fluid: ml: 4732-8703 mL/day or per Nutritional Problem: Nutr. Problems Present Problems: Predicted suboptimal intake Etiology: COVID PNA, oxygen support via bipap Signs/Symptoms: poor PO intake reported, bipap therapy ordered Food and Nutrition Intake (Sev: <50% est energy req 5days Protein-Calorie Malnutrition: N/A Is there a minimum of two crit: No Malnutrition related to morbid: BMI>or equal to 40 Malnutrition Related to Morbid: No Recommendations by RD: Add supplement feedings RD Comments: Consider multivitamin supplement. Provide 30 mL Active liquid protein mixed with 30 mL H2O QID. Expected Outcomes Labs WNL. PO intake >50%. Wt stabilization with adequate hydration. Maintain intact skin. Malnutrtion/Nutrition Risk Edu: Yes (Poor PO intkae.) RD Follow-Up Date: Jul 16, 2021 Notificiation Needed?: Yes (Consider MVI + minerals. Liquid protein ordered.) LESLEY CANSECO LD - TELE Jul 12, 2021 09:25
[2021-07-12] MEDS: ROCEPHIN 1,000 MG in NS 100ML 100 ML IV SCH (09:43)
--- NOTE | 2021-07-12 11:12 | PRM.PN ---
Subjective Subjective Date: Jul 12, 2021 Time: 08:25 Subjective Patient is a 41-year-old who was transferred from another facility to the hospital for pneumonia due to COVID-19 infection and acute respiratory failure requiring high level of oxygen therapy admitted to the ICU for further evaluati on and management. Upon arrival patient was noted to be in DKA and was started on appropriate management.Patient is currently on BiPAP 16/8 satting between 89 to 93%.Review of medical records indicate patient with bilateral pneumonia worse on the left lower lobe and noted to have elevated WBC of 14. Patient will benefit from IV antibiotic. Patient is seen and examined this morning VTE VTE Risk Score VTE Risk: Score 0-1 = Low Risk (Aggressive mobilization; early ambulation; no VTE prophylaxis required) Score 2: Moderate Risk (Intermittent/Pneumatic Compression Device OR Lovenox/Heparin/Coumadin) Score 3-4: High Risk (Intermittent/Pneumatic Compression Device AND Lovenox/Heparin/Coumadin) Score > or =5: Highest Risk (Intermittent/Pneumatic Compression Device AND Lovenox/Heparin/Coumadin) Review of Systems Constitutional: No: Fever, Chills, Sweats, Weakness, Malaise, Other Eyes: No: Pain, Vision change, Conjunctivae inflammation, Eyelid inflammation, Other, Redness ENT: No: Ear pain, Ear discharge, Nose pain, Nose discharge, Nose congestion, Mouth pain, Mouth swelling, Throat pain, Throat swelling, Other Respiratory: Cough, Shortness of breath, SOB with excertion, Pleuritic Pain Cardiovascular: Chest Pain; No: Palpitations, Orthopnea, Paroxysmal Noc. Dyspnea, Edema, Lt Headedness, Other Gastrointestinal: No: Nausea, Vomiting, Abdominal Pain, Diarrhea, Constipation, Melena, Hematochezia, Other Genitourinary: No Dysuria, No Frequency, No Incontinence, No Hematuria, No Retention, No Other Musculoskeletal: No: other, neck pain, shoulder pain, arm pain, back pain, hand pain, leg pain, foot pain Skin: No: Rash, Lesions, Jaundice, Bruising, Other Neurological: No: Weakness, Numbness, Incoordination, Change in speech, Confusion, Seizures, Other Allergies: Coded Allergies: No Known Drug Allergies (Verified Allergy, Unknown, 07/10/21) Objective Vitals and I/O Vital Sign - Last 24 Hours 1/07/12/21 07/12/21 07/12/21 07:00 07:03 07:15 07:18 Pulse 93 94 93 94 Resp B/P (MAP) 121/75 (90) 149/58 (88) Pulse Ox 89 89 88 95 07/12/21 07/12/21 07/12/21 07/12/21 07:30 07:33 07:37 08:00 Temp 97.9 Pulse 95 95 Resp B/P (MAP) 120/85 (97) Pulse Ox 85 89 O2 Delivery Bi-pap O2 Flow Rate 70.00 07/12/21 07/12/21 07/12/21 07/12/21 08:30 08:33 08:45 08:48 Pulse 98 98 97 97 Resp B/P (MAP) 132/88 (103) 128/88 (101) Pulse Ox 92 92 91 92 07/12/21 07/12/21 07/12/21 07/12/21 08:50 08:50 09:00 09:00 Temp 98.0 Pulse 95 98 100 Resp Pulse Ox 92 91 89 O2 Delivery Bi-pap S/T FiO2 90 90 07/12/21 07/12/21 07/12/21 07/12/21 09:03 09:15 09:18 09:30 Pulse 99 101 101 100 Resp B/P (MAP) 135/96 (109) 132/90 (104) Pulse Ox 88 87 87 86 07/12/21 07/12/21 07/12/21 07/12/21 09:33 09:45 09:48 10:00 Pulse 100 100 101 102 Resp B/P (MAP) 125/76 (92) 127/85 (99) Pulse Ox 87 91 90 84 07/12/21 07/12/21 07/12/21 07/12/21 10:00 10:03 10:15 10:15 Temp 97.9 Pulse 103 98 102 Resp 38 26 41 B/P (MAP) 137/92 (107) Pulse Ox 85 91 90 O2 Delivery S/T FiO2 90 07/12/21 07/12/21 07/12/21 07/12/21 10:18 10:30 10:33 10:45 Pulse 102 103 102 102 Resp 46 25 24 30 B/P (MAP) 133/85 (101) 134/61 (85) Pulse Ox 90 89 92 92 Intake and Output 07/12/21 07:00 Intake Total 2000 ml Output Total 2200 ml Balance -200 ml General: Alert, Oriented X3 HEENT: Atraumatic, PERRLA Neck: Supple, No JVD, No thyromegaly Lungs: Other (Decreased left lower lung sound) Heart: Regular rate, Normal S1, Normal S2 Abdomen: Normal bowel sounds, Soft, No tenderness Extremities: No clubbing, No cyanosis Skin: No rashes, No breakdown, No significant lesion All Results(Lab/Rad) Laboratory Tests Test 07/09/21 22:20 07/09/21 23:45 07/10/21 00:05 07/10/21 03:25 White Blood Count 14.5 10^3/uL Red Blood Count 4.62 10^6/uL Hemoglobin 12.8 g/dL Hematocrit 40.0 % Mean Corpuscular Volume 86.6 fL Mean Corpuscular Hemoglobin 27.7 pg Mean Corpuscular Hemoglobin Concent 32.0 g/dL Red Cell Distribution Width 13.3 % Platelet Count 148 10^3/uL Mean Platelet Volume 10.4 fL Neutrophils (%) (Auto) 85.7 % Lymphocytes (%) (Auto) 4.4 % Monocytes (%) (Auto) 7.4 % Neutrophils # (Auto) 12.4 10^3/uL Lymphocytes # (Auto) 0.63 10^3/uL1 Monocytes # (Auto) 1.1 10^3/uL Absolute Immature Granulocyte (auto 0.35 10^3 u/L Absolute Eosinophils (auto) 0.0 10^3/uL Immature Granulocytes % 2.40 % Eosinophils % 0.0 % Basophils % 0.1 % Basophils # 0.0 10^3/uL Sodium Level 137 mmol/L Potassium Level 4.0 mmol/L Chloride Level 100.0 mmol/L Carbon Dioxide Level 12.0 mmol/L Anion Gap 29.0 Blood Urea Nitrogen 22 mg/dL Creatinine 0.98 mg/dL Estimated GFR () 102.0 Est GFR (CKD-EPI)(Non-Afr [place]an) 84.3 BUN/Creatinine Ratio 22.0 Glucose Level 422 mg/dL Calcium Level 7.0 mg/dL Phosphorus Level 3.2 mg/dL Magnesium Level 1.9 mg/dL Total Bilirubin 0.6 mg/dL Aspartate Amino Transf (AST/SGOT) 22 U/L Alanine Aminotransferase (ALT/SGPT) 16 U/L Alkaline Phosphatase 183 U/L Total Protein 5.3 g/dL Albumin 1.8 g/dL Globulin 3.5 Albumin/Globulin Ratio 0.514 Acetone, Semi-Quantitative LARGE Lactic Acid Level 2.5 mmol/L Blood Gas Sample Site LR Blood Gas pH 7.202 Blood Gas PCO2 29.5 mmHg Blood Gas PO2 78.0 mmHg Blood Gas HCO3 11.3 mmol/L Blood Gas Base Excess -15.2 mmol/L Filiberto Test POSITIVE Arterial Blood Oxygen Saturation 93 % Deoxyhemoglobin 6.9 % Carboxyhemoglobin 0.8 % Methemoglobin 0.4 % Total Hemoglobin 15.1 % Total Oxygen Concentration 19.5 % Oxygen Delivery Method (LAB) BIPAP ST 16/[address] Blood Gas Vent Rate 25 FiO2 100 % Total Carbon Dioxide 12.2 mmol/L Lactic Acid Followup at 2 Hours 1.8 mmol/L Test 07/10/21 04:16 07/10/21 04:46 07/10/21 05:33 07/10/21 07:07 White Blood Count 14.8 10^3/uL Red Blood Count 4.66 10^6/uL Hemoglobin 13.5 g/dL Hematocrit 39.0 % Mean Corpuscular Volume 83.7 fL Mean Corpuscular Hemoglobin 29.0 pg Mean Corpuscular Hemoglobin Concent 34.6 g/dL Red Cell Distribution Width 13.2 % Platelet Count 149 10^3/uL Mean Platelet Volume 10.8 fL Neutrophils (%) (Auto) 86.3 % Lymphocytes (%) (Auto) 5.3 % Monocytes (%) (Auto) 8.3 % Neutrophils # (Auto) 12.8 10^3/uL Lymphocytes # (Auto) 0.78 10^3/uL1 Monocytes # (Auto) 1.2 10^3/uL Absolute Immature Granulocyte (auto 0.31 10^3 u/L Absolute Eosinophils (auto) 0.0 10^3/uL Immature Granulocytes % 2.10 % Eosinophils % 0.0 % Basophils % 0.1 % Basophils # 0.0 10^3/uL Sodium Level 132 mmol/L Potassium Level 3.9 mmol/L Chloride Level 97.0 mmol/L Carbon Dioxide Level 16.6 mmol/L Anion Gap 22.3 Blood Urea Nitrogen 24 mg/dL Creatinine 1.13 mg/dL Estimated GFR () 86.5 Est GFR (CKD-EPI)(Non-Afr [place]an) 71.5 BUN/Creatinine Ratio 21.0 Glucose Level 418 mg/dL Calcium Level 7.9 mg/dL Total Bilirubin 0.5 mg/dL Aspartate Amino Transf (AST/SGOT) 31 U/L Alanine Aminotransferase (ALT/SGPT) 21 U/L Alkaline Phosphatase 213 U/L Total Protein 6.0 g/dL Albumin 1.9 g/dL Globulin 4.1 Albumin/Globulin Ratio 0.463 Bedside Glucose 378 381 328 Test 07/10/21 08:13 07/10/21 08:17 07/10/21 09:12 Sodium Level 134 mmol/L Potassium Level 3.7 mmol/L Chloride Level 99.0 mmol/L Carbon Dioxide Level 22.8 mmol/L Glucose Level 340 mg/dL Blood Urea Nitrogen 23 mg/dL Creatinine 1.03 mg/dL Calcium Level 8.0 mg/dL Anion Gap 15.9 Estimated GFR () 96.3 Est GFR (CKD-EPI)(Non-Afr [place]an) 79.6 BUN/Creatinine Ratio 22.0 Bedside Glucose 270 332 Current Medications Medications (Trade) Dose Ordered Sig/Robby Route PRN Reason Start Time Stop Time Status Last Admin Dose Admin Ondansetron HCl (Zofran) 4 mg STK-MED ONCE .ROUTE 07/09/21 18:30 07/09/21 18:31 DC Ondansetron HCl (Zofran) 4 mg Q6HR PRN IV NAUSEA / VOMITING 07/09/21 19:00 08/08/21 18:59 07/09/21 21:20 Azithromycin 500 mg/Sodium Chloride 250 ml @ 175 mls/hr Q24HRS IV 07/09/21 19:00 08/08/21 18:59 07/09/21 19:00 Albuterol/ Ipratropium (Duo 0.5-3(2.5) Mg/3 ml) 3 ml RTQ4 IH 07/09/21 21:00 08/08/21 20:59 07/10/21 08:48 Morphine Sulfate (Morphine Sulfate) 1 mg Q6 PRN IV PAIN 4 - 6 07/09/21 19:00 08/08/21 18:59 Morphine Sulfate (Morphine Sulfate) 2 mg Q6 PRN IV PAIN 7 - 10 07/09/21 20:00 08/08/21 19:59 07/09/21 21:20 Sodium Chloride 250 ml @ ud STK-MED ONCE .ROUTE 07/09/21 20:52 07/09/21 20:52 DC Metoprolol Tartrate (Lopresser) 5 mg STK-MED ONCE .ROUTE 07/09/21 21:41 07/09/21 21:42 DC Metoprolol Tartrate (Lopresser) 5 mg STAT STAT IVP 07/09/21 21:43 07/09/21 22:00 DC 07/09/21 21:43 Insulin Human Lispro (Humalog) 0-140 0 Units 141-200... ACHS SQ 07/10/21 07:30 08/09/21 07:29 Hold Dextrose (Dextrose 50%-Water Syringe) 25 ml STAT PRN IV hypoglycemia 07/09/21 22:00 08/08/21 21:59 Enoxaparin Sodium (Lovenox) 40 mg Q24HRS SQ 07/09/21 22:00 08/08/21 21:59 07/09/21 22:00 Hydralazine HCl (Apresoline) 10 mg Q6HR PRN IV HYPERTENSION 07/09/21 22:00 08/08/21 21:59 Remdesivir 200 mg/ Sodium Chloride 140 ml @ 120.69 mls/ hr OT STAT IV 07/09/21 21:37 07/10/21 08:10 DC Remdesivir 100 mg/ Sodium Chloride 120 ml @ 111.111 mls/hr Q24HRS IV 07/10/21 22:00 07/10/21 08:22 DC Lorazepam (Ativan) 1 mg Q4HR PRN IM ANXIETY 07/09/21 22:00 08/08/21 21:59 07/09/21 23:50 Insulin Human Lispro (Humalog) 18 unit OT ONCE SQ 07/09/21 23:30 07/09/21 23:31 DC 07/09/21 23:30 Ondansetron HCl (Zofran) 4 mg Q4H PRN IV NAUSEA / VOMITING 07/09/21 23:30 08/08/21 23:29 Insulin Human Regular 100 unit/ Sodium Chloride 100 ml @ 5 mls/hr IV 07/09/21 23:30 07/10/21 01:10 DC Dextrose (Dextrose 50%-Water Syringe) 25 ml STAT PRN IV HYPOGLYCEMIA 07/09/21 23:30 08/08/21 23:29 Sodium Chloride 100 ml @ ud STK-MED ONCE IV 07/09/21 23:34 07/09/21 23:35 DC Insulin Human Regular (Humulin R) 1 unit STK-MED ONCE .ROUTE 07/09/21 23:35 07/09/21 23:35 DC Sodium Chloride 1,000 ml @ ud STK-MED ONCE .ROUTE 07/09/21 23:55 07/09/21 23:56 DC Insulin Human Regular 100 unit/ Sodium Chloride 100 ml @ 0 mls/hr TITRATE IV 07/10/21 01:30 08/09/21 01:29 07/10/21 00:02 Remdesivir 200 mg/ Sodium Chloride 140 ml @ 120.69 mls/ hr OT ONCE IV 07/10/21 09:00 07/10/21 10:09 07/10/21 09:00 Remdesivir 100 mg/ Sodium Chloride 120 ml @ 111.111 mls/hr Q24HRS IV 07/11/21 09:00 07/14/21 10:05 Sodium Chloride 100 ml @ STK-MED ONCE IV 07/10/21 09:37 07/10/21 09:37 DC Course Sepsis Screening Results: Posi: POSITIVE++ Sepsis Qualifier/Stage: SEVERE SEPSIS RISK Vitals & review Data Vital Sign - Last 24 Hours 07/10/21 07/10/21 07/10/21 07/10/21 08:00 08:49 08:50 08:51 Pulse 103 103 103 Resp 31 31 31 Pulse Ox 93 93 93 O2 Delivery Bi-pap Bi-pap O2 Flow Rate 100.00 FiO2 100 100 07/10/21 07/10/21 08:52 08:53 Pulse 108 Resp 28 Pulse Ox 94 O2 Flow Rate 45.00 FiO2 100 Intake and Output 07/10/21 07:00 Intake Total 1000 ml Output Total 2100 ml Balance -1100 ml Laboratory Tests Test 07/09/21 00:54 07/09/21 22:20 07/09/21 23:45 07/10/21 00:05 Urine Collection Type CCMS Urine Color YELLOW Urine Appearance TURBID Urine Bilirubin 1+ Urine Ketones 4+ Urine Specific [place] 1.025 Urine pH 5.5 Urine Protein 2+ Urine Urobilinogen 0.2 E.U./dL Urine Nitrate NEGATIVE Urine Leukocyte Esterase NEGATIVE Urine Glucose (Auto)(UA) 500 mg/dL Urine Blood 2+ Urine RBC TooNumerousToCount RBC/HPF Urine WBC NONE SEEN WBC/HPF Urine Squamous Epithelial Cells FEW Urine Bacteria FEW White Blood Count 14.5 10^3/uL Red Blood Count 4.62 10^6/uL Hemoglobin 12.8 g/dL Hematocrit 40.0 % Mean Corpuscular Volume 86.6 fL Mean Corpuscular Hemoglobin 27.7 pg Mean Corpuscular Hemoglobin Concent 32.0 g/dL Red Cell Distribution Width 13.3 % Platelet Count 148 10^3/uL Mean Platelet Volume 10.4 fL Neutrophils (%) (Auto) 85.7 % Lymphocytes (%) (Auto) 4.4 % Monocytes (%) (Auto) 7.4 % Neutrophils # (Auto) 12.4 10^3/uL Lymphocytes # (Auto) 0.63 10^3/uL1 Monocytes # (Auto) 1.1 10^3/uL Absolute Immature Granulocyte (auto 0.35 10^3 u/L Absolute Eosinophils (auto) 0.0 10^3/uL Immature Granulocytes % 2.40 % Eosinophils % 0.0 % Basophils % 0.1 % Basophils # 0.0 10^3/uL Sodium Level 137 mmol/L Potassium Level 4.0 mmol/L Chloride Level 100.0 mmol/L Carbon Dioxide Level 12.0 mmol/L Anion Gap 29.0 Blood Urea Nitrogen 22 mg/dL Creatinine 0.98 mg/dL Estimated GFR () 102.0 Est GFR (CKD-EPI)(Non-Afr [place]an) 84.3 BUN/Creatinine Ratio 22.0 Glucose Level 422 mg/dL Calcium Level 7.0 mg/dL Phosphorus Level 3.2 mg/dL Magnesium Level 1.9 mg/dL Total Bilirubin 0.6 mg/dL Aspartate Amino Transf (AST/SGOT) 22 U/L Alanine Aminotransferase (ALT/SGPT) 16 U/L Alkaline Phosphatase 183 U/L Total Protein 5.3 g/dL Albumin 1.8 g/dL Globulin 3.5 Albumin/Globulin Ratio 0.514 Acetone, Semi-Quantitative LARGE Lactic Acid Level 2.5 mmol/L Blood Gas Sample Site LR Blood Gas pH 7.202 Blood Gas PCO2 29.5 mmHg Blood Gas PO2 78.0 mmHg Blood Gas HCO3 11.3 mmol/L Blood Gas Base Excess -15.2 mmol/L Filiberto Test POSITIVE Arterial Blood Oxygen Saturation 93 % Deoxyhemoglobin 6.9 % Carboxyhemoglobin 0.8 % Methemoglobin 0.4 % Total Hemoglobin 15.1 % Total Oxygen Concentration 19.5 % Oxygen Delivery Method (LAB) BIPAP ST 16/[address] Blood Gas Vent Rate 25 FiO2 100 % Total Carbon Dioxide 12.2 mmol/L Test 07/10/21 03:25 07/10/21 04:16 07/10/21 04:46 07/10/21 05:33 Lactic Acid Followup at 2 Hours 1.8 mmol/L White Blood Count 14.8 10^3/uL Red Blood Count 4.66 10^6/uL Hemoglobin 13.5 g/dL Hematocrit 39.0 % Mean Corpuscular Volume 83.7 fL Mean Corpuscular Hemoglobin 29.0 pg Mean Corpuscular Hemoglobin Concent 34.6 g/dL Red Cell Distribution Width 13.2 % Platelet Count 149 10^3/uL Mean Platelet Volume 10.8 fL Neutrophils (%) (Auto) 86.3 % Lymphocytes (%) (Auto) 5.3 % Monocytes (%) (Auto) 8.3 % Neutrophils # (Auto) 12.8 10^3/uL Lymphocytes # (Auto) 0.78 10^3/uL1 Monocytes # (Auto) 1.2 10^3/uL Absolute Immature Granulocyte (auto 0.31 10^3 u/L Absolute Eosinophils (auto) 0.0 10^3/uL Immature Granulocytes % 2.10 % Eosinophils % 0.0 % Basophils % 0.1 % Basophils # 0.0 10^3/uL Sodium Level 132 mmol/L Potassium Level 3.9 mmol/L Chloride Level 97.0 mmol/L Carbon Dioxide Level 16.6 mmol/L Anion Gap 22.3 Blood Urea Nitrogen 24 mg/dL Creatinine 1.13 mg/dL Estimated GFR () 86.5 Est GFR (CKD-EPI)(Non-Afr [place]an) 71.5 BUN/Creatinine Ratio 21.0 Glucose Level 418 mg/dL Calcium Level 7.9 mg/dL Total Bilirubin 0.5 mg/dL Aspartate Amino Transf (AST/SGOT) 31 U/L Alanine Aminotransferase (ALT/SGPT) 21 U/L Alkaline Phosphatase 213 U/L Total Protein 6.0 g/dL Albumin 1.9 g/dL Globulin 4.1 Albumin/Globulin Ratio 0.463 Bedside Glucose 378 381 Test 07/10/21 07:07 07/10/21 08:13 07/10/21 08:17 07/10/21 09:12 Bedside Glucose 328 270 332 Sodium Level 134 mmol/L Potassium Level 3.7 mmol/L Chloride Level 99.0 mmol/L Carbon Dioxide Level 22.8 mmol/L Glucose Level 340 mg/dL Blood Urea Nitrogen 23 mg/dL Creatinine 1.03 mg/dL Calcium Level 8.0 mg/dL Anion Gap 15.9 Estimated GFR () 96.3 Est GFR (CKD-EPI)(Non-Afr [place]an) 79.6 BUN/Creatinine Ratio 22.0 Current Medications Medications (Trade) Dose Ordered Sig/Robby PRN Reason Start Time Stop Time Status Last Admin Albuterol/ Ipratropium (Duo 0.5-3(2.5) Mg/3 ml) 3 ml RTQ4 07/09/21 21:00 08/08/21 20:59 07/10/21 08:48 Azithromycin 500 mg/Sodium Chloride 250 ml @ 175 mls/hr Q24HRS 07/09/21 19:00 08/08/21 18:59 07/09/21 19:00 Dextrose (Dextrose 50%-Water Syringe) 25 ml STAT PRN hypoglycemia 07/09/21 22:00 08/08/21 21:59 Dextrose (Dextrose 50%-Water Syringe) 25 ml STAT PRN HYPOGLYCEMIA 07/09/21 23:30 08/08/21 23:29 Enoxaparin Sodium (Lovenox) 40 mg Q24HRS 07/09/21 22:00 08/08/21 21:59 07/09/21 22:00 Hydralazine HCl (Apresoline) 10 mg Q6HR PRN HYPERTENSION 07/09/21 22:00 08/08/21 21:59 Insulin Human Lispro (Humalog) 0-140 0 Units 141-200... ACHS 07/10/21 07:30 08/09/21 07:29 Hold Insulin Human Regular 100 unit/ Sodium Chloride 100 ml @ 0 mls/hr TITRATE 07/10/21 01:30 08/09/21 01:29 07/10/21 00:02 Lorazepam (Ativan) 1 mg Q4HR PRN ANXIETY 07/09/21 22:00 08/08/21 21:59 07/09/21 23:50 Morphine Sulfate (Morphine Sulfate) 1 mg Q6 PRN PAIN 4 - 6 07/09/21 19:00 08/08/21 18:59 Morphine Sulfate (Morphine Sulfate) 2 mg Q6 PRN PAIN 7 - 10 07/09/21 20:00 08/08/21 19:59 07/09/21 21:20 Ondansetron HCl (Zofran) 4 mg Q4H PRN NAUSEA / VOMITING 07/09/21 23:30 08/08/21 23:29 Ondansetron HCl (Zofran) 4 mg Q6HR PRN NAUSEA / VOMITING 07/09/21 19:00 08/08/21 18:59 07/09/21 21:20 Remdesivir 100 mg/ Sodium Chloride 120 ml @ 111.111 mls/hr Q24HRS 07/11/21 09:00 07/14/21 10:05 LEVEL 1 SEPSIS INFECTION CRITE: Abdominal Pain, Cough/Shortness of Breath LEVEL 2-SIRS (LIST ALL THAT AP: RR>20/min, HR>90/min, WBC>[id number] Respiratory Evidence: Need for O2 to keep>90%, O2 SAT<90room air, New Prescr. BIPAP O2 Sat by Pulse Oximetry: 92 Oxygen Flow Rate: 70.00 Assessment/Plan Assessment/Plan Assessment/Plan COVID-pneumonia DKA Acute respiratory failure hypoxic Anxiety Obesity [employer] Tester recommendation: COVID-specific therapies have included remdesivir and dexamethasone Patient is empirically on azithromycin and ceftriaxone Dexmedetomidine and Ativan as needed are ordered in case of agitated delirium, but this is not a major issue so far Acute hypoxic respiratory failure, managed with BiPAP. Continue to avoid positive fluid balance. Encourage self proning if possible. DKA. Glargine was ordered along with sliding scale insulin every 6 hours to transition off insulin drip. D5 drip also was discontinued. Continue full dose enoxaparin for saddle PE. Right heart strain was not described on CT imaging. Would recommend checking an echocardiogram. Stress ulcer prophylaxis with Pepcid Plan reviewed with bedside team. Patient seen through remote audiovisual assessment through HIPAA compliant setup. All labs, flowsheets, and images reviewed Cumulative nonprocedural critical care time spent in directed patient care = 60min ADELE IZQUIERDO MD Jul 12, 2021 11:12
[2021-07-12] MEDS: LANTUS SQ SCH (11:54)
[2021-07-12] MEDS: ZOFRAN IV PRN (15:10)
[2021-07-12] MEDS: PRECEDEX 400 MCG/100 ML INJECT 100 ML IV PRN (15:20)
[2021-07-12] MEDS: ZITHROMAX 500 MG in NS 250ML 250 ML IV SCH (18:24)
--- NOTE | 2021-07-12 20:24 | TELE.CONS ---
Assessment/Plan Assessment/Plan Assessment/Plan This is a 41-year-old man who was admitted on 07/09/2021 with COVID-pneumonia, saddle PE, and DKA. Overnight, the patient's oxygen requirement increased. This morning, BiPAP is set to 15/10, 90%. On this respiratory rate is 25 and tidal volumes are as large as 800 mL. The patient was started on Precedex for comfort. On camera with the settings, the patient does not appear to be in distress. EMR data reviewed. Fluid balance for the past 24 hours is 2 L in, 2.2 L out. CBC and chemistries are comparable to prior. Blood glucose has been elevated in the 200s to 300s. Diagnosis: Self PE, COVID-pneumonia, acute respiratory failure, DKA Management: COVID-specific therapies have included remdesivir and dexamethasone Patient is empirically on azithromycin and ceftriaxone. No sputum cultures are available. Continue dexmedetomidine and Ativan as needed for comfort while on BiPAP Acute hypoxic respiratory failure, with oxygen support increasing. The increased O2 requirement may just be worsening COVID. Encourage self proning. Add Lasix if fluid balance is trending towards positive. DKA. Patient was switched off of insulin drip yesterday, with glargine added. Patient is requiring large amounts of supplemental insulin, so glargine was increased to 25 units twice daily. On full dose enoxaparin for saddle PE. Again, given the rising O2 requirement, we will check an echocardiogram to evaluate for any cardiac causes of hypoxia. Stress ulcer prophylaxis with Pepcid Plan reviewed with bedside team. Patient seen through remote audiovisual assessment through HIPAA compliant setup. All labs, flowsheets, and images reviewed Cumulative nonprocedural critical care time spent in directed patient care = 60min CAT CONNOLLY MD Jul 12, 2021 20:23
[2021-07-13] VITALS (86 sets, daily range): BP systolic 84–151; BP diastolic 48–101
[2021-07-13] MEDS: LANTUS SQ SCH ×2 (00:30→12:00)
[2021-07-13] MEDS: PRECEDEX 400 MCG/100 ML INJECT 100 ML IV PRN (01:30)
[2021-07-13 04:35] LABS: BASOPHIL % 0.1 % (0.0-0.2); EOSINOPHIL % 0.1 % (0.0-5.0); LYMPHOCYTES # 1.17 10^3/uL1 (1.0-4.8); MEAN CORP HGB 28.4 pg (26-34); MONOCYTES # 0.9 10^3/uL (0.3-0.8); MONOCYTES % 6.2 % (5.0-12.0); NEUTROPHIL # 12.5 10^3/uL (1.8-7.7); NEUTROPHILS % 85.6 % (41.0-85.0); PLATELET COUNT 178 10^3/uL (150-400); RED CELL DISTRIBUTION WIDTH 13.6 % (11.5-14.5)
[2021-07-13 04:40] LABS: CARBON DIOXIDE 22.9 mmol/L (20.0-32)
[2021-07-13] MEDS: HUMALOG SQ SCH ×3 (08:00→18:00)
[2021-07-13] MEDS: LOVENOX SQ SCH ×2 (08:11→20:50)
[2021-07-13] MEDS: DEXAMETHASONE 10 MG/ML VIAL IV SCH (08:11)
[2021-07-13] MEDS: REMDESIVIR (EUA) 100 MG in NS 100ML 100 ML IV SCH (08:11)
[2021-07-13] MEDS: PEPCID IV SCH ×2 (08:11→20:50)
[2021-07-13] MEDS: ZOFRAN IV PRN ×2 (08:44→14:08)
[2021-07-13] MEDS: MORPHINE SULFATE IV PRN ×2 (08:44→14:08)
[2021-07-13] MEDS: ROCEPHIN 1,000 MG in NS 100ML 100 ML IV SCH (09:48)
--- NOTE | 2021-07-13 10:49 | NUR ---
DISCHARGE PLANNING PER REVIEW OF PATIENT'S CHART - PATIENT A DIRECT ADMIT AND TRANSFER FROM [facility] DUE TO COVID. PATIENT CURRENTLY LIVES HOME WITH SPOUSE AND WAS IND WITH [facility] PRIOR TO HOSPITALIZATION AND REQUIRING OX. PATIENT CURRENTLY ON BIPAP@80%. CM WILL CONTINUE TO FOLLOW FOR DISCHARGE PLANS AND NEEDS WHEN STABLE.
--- NOTE | 2021-07-13 12:18 | NUR ---
1200 Due humalog not given. Patient refusing to eat.
--- NOTE | 2021-07-13 14:00 | NUR ---
1400 Patient complaining of abdominal pain which is more severe than the one he previously had. Notified Dr. Vu. ordered lactic and lipase and to do abdominal xray.
--- NOTE | 2021-07-13 15:54 | DIREP ---
PROCEDURE:XRAY ABDOMEN SINGLE VW COMPARISON:[facility], CT, CTA CHEST, 07/10/2021, 01:49 PM. INDICATIONS:Abdominal pain FINDINGS: BOWEL GAS PATTERN:Mild prominence small bowel loops predominantly in the left upper quadrant. CALCIFICATIONS:None significant. LUNG BASES:Regions of infiltrate and patchy consolidation, in keeping with COVID-19 pneumonia. BONES:Normal. OTHER:No additional findings. CONCLUSION:Mild prominence of small bowel loops in the left upper quadrant, question localized ileus. Dictated by: Riccardo Sal MD on 07/13/2021 at 03:51 PM
--- NOTE | 2021-07-13 17:36 | PRM.PN ---
Subjective Subjective Date: Jul 13, 2021 Time: 08:05 Subjective Patient is seen and examined this morning VTE VTE Risk Score VTE Risk: Score 0-1 = Low Risk (Aggressive mobilization; early ambulation; no VTE prophylaxis required) Score 2: Moderate Risk (Intermittent/Pneumatic Compression Device OR Lovenox/Heparin/Coumadin) Score 3-4: High Risk (Intermittent/Pneumatic Compression Device AND Lovenox/Heparin/Coumadin) Score > or =5: Highest Risk (Intermittent/Pneumatic Compression Device AND Lovenox/Heparin/Coumadin) Review of Systems Constitutional: No: Fever, Chills, Sweats, Weakness, Malaise, Other Eyes: No: Pain, Vision change, Conjunctivae inflammation, Eyelid inflammation, Other, Redness ENT: No: Ear pain, Ear discharge, Nose pain, Nose discharge, Nose congestion, Mouth pain, Mouth swelling, Throat pain, Throat swelling, Other Respiratory: Cough, Shortness of breath, SOB with excertion, Pleuritic Pain Cardiovascular: Chest Pain; No: Palpitations, Orthopnea, Paroxysmal Noc. Dyspnea, Edema, Lt Headedness, Other Gastrointestinal: No: Nausea, Vomiting, Abdominal Pain, Diarrhea, Constipation, Melena, Hematochezia, Other Genitourinary: No Dysuria, No Frequency, No Incontinence, No Hematuria, No Retention, No Other Musculoskeletal: No: other, neck pain, shoulder pain, arm pain, back pain, hand pain, leg pain, foot pain Skin: No: Rash, Lesions, Jaundice, Bruising, Other Neurological: No: Weakness, Numbness, Incoordination, Change in speech, Confusion, Seizures, Other Allergies: Coded Allergies: No Known Drug Allergies (Verified Allergy, Unknown, 07/10/21) Objective Vitals and I/O Vital Sign - Last 24 Hours 07/13/21 07/13/21 07/13/21 07/13/21 07:00 07:02 07:15 07:17 Pulse 89 88 89 88 Resp 24 25 26 26 B/P (MAP) 117/75 (89) 111/78 (89) Pulse Ox 93 93 93 92 07/13/21 07/13/21 07/13/21 07/13/21 07:30 07:32 07:32 08:00 Temp 98.6 Pulse 89 90 Resp 21 23 B/P (MAP) 117/70 (86) Pulse Ox 95 94 O2 Delivery Bi-pap O2 Flow Rate 70.00 07/13/21 07/13/21 07/13/21 07/13/21 08:50 08:50 09:00 09:25 Temp 98.9 Pulse 90 90 Resp 30 30 Pulse Ox 95 95 95 O2 Delivery S/T Bi-pap FiO2 80 80 75 07/13/21 07/13/21 07/13/21 07/13/21 10:00 10:17 10:30 10:32 Temp 98.5 Pulse 83 83 83 Resp 24 B/P (MAP) 114/66 (82) 107/73 (84) Pulse Ox 93 94 94 07/13/21 07/13/21 07/13/21 07/13/21 10:45 10:47 10:50 11:00 Pulse 83 83 84 Resp 24 B/P (MAP) 117/74 (88) Pulse Ox 95 95 95 96 FiO2 70 07/13/21 07/13/21 07/13/21 07/13/21 11:00 11:02 11:15 11:17 Temp 98.7 Pulse 84 84 84 Resp 21 B/P (MAP) 120/77 (91) 117/77 (90) Pulse Ox 95 94 95 07/13/21 07/13/21 07/13/21 07/13/21 11:30 11:30 11:32 11:32 Pulse 84 84 84 84 Resp 22 B/P (MAP) 113/76 (88) 113/76 (88) Pulse Ox 94 94 93 93 07/13/21 07/13/21 07/13/21 07/13/21 11:45 11:45 11:47 11:47 Pulse 84 84 84 84 Resp 24 24 B/P (MAP) 117/76 (90) 117/76 (90) Pulse Ox 94 94 94 94 07/13/21 07/13/21 07/13/21 07/13/21 12:00 12:00 12:00 12:00 Temp 98.9 Pulse 86 86 Resp 27 27 Pulse Ox 96 96 O2 Delivery Bi-pap O2 Flow Rate 70.00 07/13/21 07/13/21 07/13/21 07/13/21 12:02 12:02 12:15 12:15 Pulse 88 88 84 84 Resp 34 34 23 23 B/P (MAP) 115/70 (85) 115/70 (85) Pulse Ox 89 89 92 92 07/13/21 07/13/21 07/13/21 07/13/21 12:17 12:17 12:30 12:30 Pulse 84 84 84 84 Resp 20 20 B/P (MAP) 117/84 (95) 117/84 (95) Pulse Ox 95 95 98 98 07/13/21 07/13/21 07/13/21 07/13/21 12:32 12:32 12:35 12:45 Pulse 84 84 84 86 Resp 27 B/P (MAP) 117/81 (93) 117/81 (93) Pulse Ox 94 94 96 97 FiO2 60 07/13/21 07/13/21 07/13/21 07/13/21 12:47 13:00 13:03 13:15 Pulse 87 86 86 86 Resp B/P (MAP) 119/78 (92) 109/71 (84) Pulse Ox 95 96 96 96 07/13/21 07/13/21 07/13/21 07/13/21 13:17 13:30 13:32 13:45 Pulse 86 86 86 86 Resp B/P (MAP) 107/66 (80) 108/63 (78) Pulse Ox 97 97 97 97 07/13/21 07/13/21 07/13/21 07/13/21 13:47 14:17 14:20 14:30 Pulse 86 86 74 86 Resp 23 B/P (MAP) 108/68 (81) 113/68 (83) Pulse Ox 97 97 97 99 O2 Delivery CPAP FiO2 60 07/13/21 07/13/21 07/13/21 07/13/21 14:33 14:45 14:48 15:00 Pulse 88 86 89 88 Resp 23 B/P (MAP) 103/63 (76) 103/63 (76) Pulse Ox 98 97 88 96 07/13/21 07/13/21 07/13/21 07/13/21 15:02 15:15 15:17 15:30 Pulse 88 90 91 91 Resp 20 B/P (MAP) 105/57 (73) 103/63 (76) Pulse Ox 97 96 96 97 07/13/21 07/13/21 07/13/21 07/13/21 15:32 15:45 15:50 15:58 Pulse 90 95 99 91 Resp 21 26 32 24 B/P (MAP) 111/65 (80) 116/72 (87) Pulse Ox 96 94 82 89 07/13/21 07/13/21 07/13/21 07/13/21 16:00 16:02 16:15 16:17 Pulse 91 92 101 Resp 42 21 21 B/P (MAP) 116/81 (93) 123/75 (91) Pulse Ox 87 89 88 O2 Delivery Bi-pap O2 Flow Rate 60.00 07/13/21 07/13/21 07/13/21 16:30 16:32 16:37 Pulse 93 93 74 Resp 23 22 28 B/P (MAP) 118/71 (87) Pulse Ox 90 91 97 O2 Delivery CPAP FiO2 60 Intake and Output 07/13/21 07:00 Intake Total 819 ml Output Total 1300 ml Balance -481 ml General: Alert, Oriented X3 HEENT: Atraumatic, PERRLA Neck: Supple, No JVD, No thyromegaly Lungs: Other (Decreased left lower lung sound) Heart: Regular rate, Normal S1, Normal S2 Abdomen: Normal bowel sounds, Soft, No tenderness Extremities: No clubbing, No cyanosis Skin: No rashes, No breakdown, No significant lesion All Results(Lab/Rad) Laboratory Tests Test 07/09/21 22:20 07/09/21 23:45 07/10/21 00:05 07/10/21 03:25 White Blood Count 14.5 10^3/uL Red Blood Count 4.62 10^6/uL Hemoglobin 12.8 g/dL Hematocrit 40.0 % Mean Corpuscular Volume 86.6 fL Mean Corpuscular Hemoglobin 27.7 pg Mean Corpuscular Hemoglobin Concent 32.0 g/dL Red Cell Distribution Width 13.3 % Platelet Count 148 10^3/uL Mean Platelet Volume 10.4 fL Neutrophils (%) (Auto) 85.7 % Lymphocytes (%) (Auto) 4.4 % Monocytes (%) (Auto) 7.4 % Neutrophils # (Auto) 12.4 10^3/uL Lymphocytes # (Auto) 0.63 10^3/uL1 Monocytes # (Auto) 1.1 10^3/uL Absolute Immature Granulocyte (auto 0.35 10^3 u/L Absolute Eosinophils (auto) 0.0 10^3/uL Immature Granulocytes % 2.40 % Eosinophils % 0.0 % Basophils % 0.1 % Basophils # 0.0 10^3/uL Sodium Level 137 mmol/L Potassium Level 4.0 mmol/L Chloride Level 100.0 mmol/L Carbon Dioxide Level 12.0 mmol/L Anion Gap 29.0 Blood Urea Nitrogen 22 mg/dL Creatinine 0.98 mg/dL Estimated GFR () 102.0 Est GFR (CKD-EPI)(Non-Afr Trinidadian) 84.3 BUN/Creatinine Ratio 22.0 Glucose Level 422 mg/dL Calcium Level 7.0 mg/dL Phosphorus Level 3.2 mg/dL Magnesium Level 1.9 mg/dL Total Bilirubin 0.6 mg/dL Aspartate Amino Transf (AST/SGOT) 22 U/L Alanine Aminotransferase (ALT/SGPT) 16 U/L Alkaline Phosphatase 183 U/L Total Protein 5.3 g/dL Albumin 1.8 g/dL Globulin 3.5 Albumin/Globulin Ratio 0.514 Acetone, Semi-Quantitative LARGE Lactic Acid Level 2.5 mmol/L Blood Gas Sample Site LR Blood Gas pH 7.202 Blood Gas PCO2 29.5 mmHg Blood Gas PO2 78.0 mmHg Blood Gas HCO3 11.3 mmol/L Blood Gas Base Excess -15.2 mmol/L Filiberto Test POSITIVE Arterial Blood Oxygen Saturation 93 % Deoxyhemoglobin 6.9 % Carboxyhemoglobin 0.8 % Methemoglobin 0.4 % Total Hemoglobin 15.1 % Total Oxygen Concentration 19.5 % Oxygen Delivery Method (LAB) BIPAP ST 16/[address] Blood Gas Vent Rate 25 FiO2 100 % Total Carbon Dioxide 12.2 mmol/L Lactic Acid Followup at 2 Hours 1.8 mmol/L Test 07/10/21 04:16 07/10/21 04:46 07/10/21 05:33 07/10/21 07:07 White Blood Count 14.8 10^3/uL Red Blood Count 4.66 10^6/uL Hemoglobin 13.5 g/dL Hematocrit 39.0 % Mean Corpuscular Volume 83.7 fL Mean Corpuscular Hemoglobin 29.0 pg Mean Corpuscular Hemoglobin Concent 34.6 g/dL Red Cell Distribution Width 13.2 % Platelet Count 149 10^3/uL Mean Platelet Volume 10.8 fL Neutrophils (%) (Auto) 86.3 % Lymphocytes (%) (Auto) 5.3 % Monocytes (%) (Auto) 8.3 % Neutrophils # (Auto) 12.8 10^3/uL Lymphocytes # (Auto) 0.78 10^3/uL1 Monocytes # (Auto) 1.2 10^3/uL Absolute Immature Granulocyte (auto 0.31 10^3 u/L Absolute Eosinophils (auto) 0.0 10^3/uL Immature Granulocytes % 2.10 % Eosinophils % 0.0 % Basophils % 0.1 % Basophils # 0.0 10^3/uL Sodium Level 132 mmol/L Potassium Level 3.9 mmol/L Chloride Level 97.0 mmol/L Carbon Dioxide Level 16.6 mmol/L Anion Gap 22.3 Blood Urea Nitrogen 24 mg/dL Creatinine 1.13 mg/dL Estimated GFR () 86.5 Est GFR (CKD-EPI)(Non-Afr Trin[place]adian) 71.5 BUN/Creatinine Ratio 21.0 Glucose Level 418 mg/dL Calcium Level 7.9 mg/dL Total Bilirubin 0.5 mg/dL Aspartate Amino Transf (AST/SGOT) 31 U/L Alanine Aminotransferase (ALT/SGPT) 21 U/L Alkaline Phosphatase 213 U/L Total Protein 6.0 g/dL Albumin 1.9 g/dL Globulin 4.1 Albumin/Globulin Ratio 0.463 Bedside Glucose 378 381 328 Test 07/10/21 08:13 07/10/21 08:17 07/10/21 09:12 Sodium Level 134 mmol/L Potassium Level 3.7 mmol/L Chloride Level 99.0 mmol/L Carbon Dioxide Level 22.8 mmol/L Glucose Level 340 mg/dL Blood Urea Nitrogen 23 mg/dL Creatinine 1.03 mg/dL Calcium Level 8.0 mg/dL Anion Gap 15.9 Estimated GFR () 96.3 Est GFR (CKD-EPI)(Non-Afr [place]adian) 79.6 BUN/Creatinine Ratio 22.0 Bedside Glucose 270 332 Current Medications Medications (Trade) Dose Ordered Sig/Robby Route PRN Reason Start Time Stop Time Status Last Admin Dose Admin Ondansetron HCl (Zofran) 4 mg STK-MED ONCE .ROUTE 07/09/21 18:30 07/09/21 18:31 DC Ondansetron HCl (Zofran) 4 mg Q6HR PRN IV NAUSEA / VOMITING 07/09/21 19:00 08/08/21 18:59 07/09/21 21:20 Azithromycin 500 mg/Sodium Chloride 250 ml @ 175 mls/hr Q24HRS IV 07/09/21 19:00 08/08/21 18:59 07/09/21 19:00 Albuterol/ Ipratropium (Duo 0.5-3(2.5) Mg/3 ml) 3 ml RTQ4 IH 07/09/21 21:00 08/08/21 20:59 07/10/21 08:48 Morphine Sulfate (Morphine Sulfate) 1 mg Q6 PRN IV PAIN 4 - 6 07/09/21 19:00 08/08/21 18:59 Morphine Sulfate (Morphine Sulfate) 2 mg Q6 PRN IV PAIN 7 - 10 07/09/21 20:00 08/08/21 19:59 07/09/21 21:20 Sodium Chloride 250 ml @ ud STK-MED ONCE .ROUTE 07/09/21 20:52 07/09/21 20:52 DC Metoprolol Tartrate (Lopresser) 5 mg STK-MED ONCE .ROUTE 07/09/21 21:41 07/09/21 21:42 DC Metoprolol Tartrate (Lopresser) 5 mg STAT STAT IVP 07/09/21 21:43 07/09/21 22:00 DC 07/09/21 21:43 Insulin Human Lispro (Humalog) 0-140 0 Units 141-200... ACHS SQ 07/10/21 07:30 08/09/21 07:29 Hold Dextrose (Dextrose 50%-Water Syringe) 25 ml STAT PRN IV hypoglycemia 07/09/21 22:00 08/08/21 21:59 Enoxaparin Sodium (Lovenox) 40 mg Q24HRS SQ 07/09/21 22:00 08/08/21 21:59 07/09/21 22:00 Hydralazine HCl (Apresoline) 10 mg Q6HR PRN IV HYPERTENSION 07/09/21 22:00 08/08/21 21:59 Remdesivir 200 mg/ Sodium Chloride 140 ml @ 120.69 mls/ hr OT STAT IV 07/09/21 21:37 07/10/21 08:10 DC Remdesivir 100 mg/ Sodium Chloride 120 ml @ 111.111 mls/hr Q24HRS IV 07/10/21 22:00 07/10/21 08:22 DC Lorazepam (Ativan) 1 mg Q4HR PRN IM ANXIETY 07/09/21 22:00 08/08/21 21:59 07/09/21 23:50 Insulin Human Lispro (Humalog) 18 unit OT ONCE SQ 07/09/21 23:30 07/09/21 23:31 DC 07/09/21 23:30 Ondansetron HCl (Zofran) 4 mg Q4H PRN IV NAUSEA / VOMITING 07/09/21 23:30 08/08/21 23:29 Insulin Human Regular 100 unit/ Sodium Chloride 100 ml @ 5 mls/hr IV 07/09/21 23:30 07/10/21 01:10 DC Dextrose (Dextrose 50%-Water Syringe) 25 ml STAT PRN IV HYPOGLYCEMIA 07/09/21 23:30 08/08/21 23:29 Sodium Chloride 100 ml @ ud STK-MED ONCE IV 07/09/21 23:34 07/09/21 23:35 DC Insulin Human Regular (Humulin R) 1 unit STK-MED ONCE .ROUTE 07/09/21 23:35 07/09/21 23:35 DC Sodium Chloride 1,000 ml @ ud STK-MED ONCE .ROUTE 07/09/21 23:55 07/09/21 23:56 DC Insulin Human Regular 100 unit/ Sodium Chloride 100 ml @ 0 mls/hr TITRATE IV 07/10/21 01:30 08/09/21 01:29 07/10/21 00:02 Remdesivir 200 mg/ Sodium Chloride 140 ml @ 120.69 mls/ hr OT ONCE IV 07/10/21 09:00 07/10/21 10:09 07/10/21 09:00 Remdesivir 100 mg/ Sodium Chloride 120 ml @ 111.111 mls/hr Q24HRS IV 07/11/21 09:00 07/14/21 10:05 Sodium Chloride 100 ml @ ud STK-MED ONCE IV 07/10/21 09:37 07/10/21 09:37 DC Course Sepsis Screening Results: Posi: POSITIVE++ Sepsis Qualifier/Stage: SEVERE SEPSIS RISK Vitals & review Data Vital Sign - Last 24 Hours 1/11/22 1/11/22 1/11/22 1/11/22 08:00 08:49 08:50 08:51 Pulse 103 103 103 Resp 31 31 31 Pulse Ox 93 93 93 O2 Delivery Bi-pap Bi-pap O2 Flow Rate 100.00 FiO2 100 100 07/10/21 07/10/21 08:52 08:53 Pulse 108 Resp 28 Pulse Ox 94 O2 Flow Rate 45.00 FiO2 100 Intake and Output 07/10/21 07:00 Intake Total 1000 ml Output Total 2100 ml Balance -1100 ml Laboratory Tests Test 07/09/21 00:54 07/09/21 22:20 07/09/21 23:45 07/10/21 00:05 Urine Collection Type CCMS Urine Color YELLOW Urine Appearance TURBID Urine Bilirubin 1+ Urine Ketones 4+ Urine Specific [place] 1.025 Urine pH 5.5 Urine Protein 2+ Urine Urobilinogen 0.2 E.U./dL Urine Nitrate NEGATIVE Urine Leukocyte Esterase NEGATIVE Urine Glucose (Auto)(UA) 500 mg/dL Urine Blood 2+ Urine RBC TooNumerousToCount RBC/HPF Urine WBC NONE SEEN WBC/HPF Urine Squamous Epithelial Cells FEW Urine Bacteria FEW White Blood Count 14.5 10^3/uL Red Blood Count 4.62 10^6/uL Hemoglobin 12.8 g/dL Hematocrit 40.0 % Mean Corpuscular Volume 86.6 fL Mean Corpuscular Hemoglobin 27.7 pg Mean Corpuscular Hemoglobin Concent 32.0 g/dL Red Cell Distribution Width 13.3 % Platelet Count 148 10^3/uL Mean Platelet Volume 10.4 fL Neutrophils (%) (Auto) 85.7 % Lymphocytes (%) (Auto) 4.4 % Monocytes (%) (Auto) 7.4 % Neutrophils # (Auto) 12.4 10^3/uL Lymphocytes # (Auto) 0.63 10^3/uL1 Monocytes # (Auto) 1.1 10^3/uL Absolute Immature Granulocyte (auto 0.35 10^3 u/L Absolute Eosinophils (auto) 0.0 10^3/uL Immature Granulocytes % 2.40 % Eosinophils % 0.0 % Basophils % 0.1 % Basophils # 0.0 10^3/uL Sodium Level 137 mmol/L Potassium Level 4.0 mmol/L Chloride Level 100.0 mmol/L Carbon Dioxide Level 12.0 mmol/L Anion Gap 29.0 Blood Urea Nitrogen 22 mg/dL Creatinine 0.98 mg/dL Estimated GFR () 102.0 Est GFR (CKD-EPI)(Non-Afr Trin[place]adian) 84.3 BUN/Creatinine Ratio 22.0 Glucose Level 422 mg/dL Calcium Level 7.0 mg/dL Phosphorus Level 3.2 mg/dL Magnesium Level 1.9 mg/dL Total Bilirubin 0.6 mg/dL Aspartate Amino Transf (AST/SGOT) 22 U/L Alanine Aminotransferase (ALT/SGPT) 16 U/L Alkaline Phosphatase 183 U/L Total Protein 5.3 g/dL Albumin 1.8 g/dL Globulin 3.5 Albumin/Globulin Ratio 0.514 Acetone, Semi-Quantitative LARGE Lactic Acid Level 2.5 mmol/L Blood Gas Sample Site LR Blood Gas pH 7.202 Blood Gas PCO2 29.5 mmHg Blood Gas PO2 78.0 mmHg Blood Gas HCO3 11.3 mmol/L Blood Gas Base Excess -15.2 mmol/L Filiberto Test POSITIVE Arterial Blood Oxygen Saturation 93 % Deoxyhemoglobin 6.9 % Carboxyhemoglobin 0.8 % Methemoglobin 0.4 % Total Hemoglobin 15.1 % Total Oxygen Concentration 19.5 % Oxygen Delivery Method (LAB) BIPAP ST 16/[address] Blood Gas Vent Rate 25 FiO2 100 % Total Carbon Dioxide 12.2 mmol/L Test 07/10/21 03:25 07/10/21 04:16 07/10/21 04:46 07/10/21 05:33 Lactic Acid Followup at 2 Hours 1.8 mmol/L White Blood Count 14.8 10^3/uL Red Blood Count 4.66 10^6/uL Hemoglobin 13.5 g/dL Hematocrit 39.0 % Mean Corpuscular Volume 83.7 fL Mean Corpuscular Hemoglobin 29.0 pg Mean Corpuscular Hemoglobin Concent 34.6 g/dL Red Cell Distribution Width 13.2 % Platelet Count 149 10^3/uL Mean Platelet Volume 10.8 fL Neutrophils (%) (Auto) 86.3 % Lymphocytes (%) (Auto) 5.3 % Monocytes (%) (Auto) 8.3 % Neutrophils # (Auto) 12.8 10^3/uL Lymphocytes # (Auto) 0.78 10^3/uL1 Monocytes # (Auto) 1.2 10^3/uL Absolute Immature Granulocyte (auto 0.31 10^3 u/L Absolute Eosinophils (auto) 0.0 10^3/uL Immature Granulocytes % 2.10 % Eosinophils % 0.0 % Basophils % 0.1 % Basophils # 0.0 10^3/uL Sodium Level 132 mmol/L Potassium Level 3.9 mmol/L Chloride Level 97.0 mmol/L Carbon Dioxide Level 16.6 mmol/L Anion Gap 22.3 Blood Urea Nitrogen 24 mg/dL Creatinine 1.13 mg/dL Estimated GFR () 86.5 Est GFR (CKD-EPI)(Non-Afr Trinidadian) 71.5 BUN/Creatinine Ratio 21.0 Glucose Level 418 mg/dL Calcium Level 7.9 mg/dL Total Bilirubin 0.5 mg/dL Aspartate Amino Transf (AST/SGOT) 31 U/L Alanine Aminotransferase (ALT/SGPT) 21 U/L Alkaline Phosphatase 213 U/L Total Protein 6.0 g/dL Albumin 1.9 g/dL Globulin 4.1 Albumin/Globulin Ratio 0.463 Bedside Glucose 378 381 Test 07/10/21 07:07 07/10/21 08:13 07/10/21 08:17 07/10/21 09:12 Bedside Glucose 328 270 332 Sodium Level 134 mmol/L Potassium Level 3.7 mmol/L Chloride Level 99.0 mmol/L Carbon Dioxide Level 22.8 mmol/L Glucose Level 340 mg/dL Blood Urea Nitrogen 23 mg/dL Creatinine 1.03 mg/dL Calcium Level 8.0 mg/dL Anion Gap 15.9 Estimated GFR () 96.3 Est GFR (CKD-EPI)(Non-Afr Trin[place]adian) 79.6 BUN/Creatinine Ratio 22.0 Current Medications Medications (Trade) Dose Ordered Sig/Robby PRN Reason Start Time Stop Time Status Last Admin Albuterol/ Ipratropium (Duo 0.5-3(2.5) Mg/3 ml) 3 ml RTQ4 07/09/21 21:00 08/08/21 20:59 07/10/21 08:48 Azithromycin 500 mg/Sodium Chloride 250 ml @ 175 mls/hr Q24HRS 07/09/21 19:00 08/08/21 18:59 07/09/21 19:00 Dextrose (Dextrose 50%-Water Syringe) 25 ml STAT PRN hypoglycemia 07/09/21 22:00 08/08/21 21:59 Dextrose (Dextrose 50%-Water Syringe) 25 ml STAT PRN HYPOGLYCEMIA 07/09/21 23:30 08/08/21 23:29 Enoxaparin Sodium (Lovenox) 40 mg Q24HRS 07/09/21 22:00 08/08/21 21:59 07/09/21 22:00 Hydralazine HCl (Apresoline) 10 mg Q6HR PRN HYPERTENSION 07/09/21 22:00 08/08/21 21:59 Insulin Human Lispro (Humalog) 0-140 0 Units 141-200... ACHS 07/10/21 07:30 08/09/21 07:29 Hold Insulin Human Regular 100 unit/ Sodium Chloride 100 ml @ 0 mls/hr TITRATE 07/10/21 01:30 08/09/21 01:29 07/10/21 00:02 Lorazepam (Ativan) 1 mg Q4HR PRN ANXIETY 07/09/21 22:00 08/08/21 21:59 07/09/21 23:50 Morphine Sulfate (Morphine Sulfate) 1 mg Q6 PRN PAIN 4 - 6 07/09/21 19:00 08/08/21 18:59 Morphine Sulfate (Morphine Sulfate) 2 mg Q6 PRN PAIN 7 - 10 07/09/21 20:00 08/08/21 19:59 07/09/21 21:20 Ondansetron HCl (Zofran) 4 mg Q4H PRN NAUSEA / VOMITING 07/09/21 23:30 08/08/21 23:29 Ondansetron HCl (Zofran) 4 mg Q6HR PRN NAUSEA / VOMITING 07/09/21 19:00 08/08/21 18:59 07/09/21 21:20 Remdesivir 100 mg/ Sodium Chloride 120 ml @ 111.111 mls/hr Q24HRS 07/11/21 09:00 07/14/21 10:05 LEVEL 1 SEPSIS INFECTION CRITE: Abdominal Pain, Cough/Shortness of Breath LEVEL 2-SIRS (LIST ALL THAT AP: RR>20/min, HR>90/min, WBC>[id number] Respiratory Evidence: Need for O2 to keep>90%, O2 SAT<90room air, New Prescr. BIPAP O2 Sat by Pulse Oximetry: 97 Oxygen Flow Rate: 60.00 Assessment/Plan Assessment/Plan Assessment/Plan COVID-pneumonia Acute hypoxic respiratory failure DKA Anxiety Abdominal painpatient has been complaining of abdominal pain will obtain imaging study, lipase, lactate. Pain control Registered Medical Transcriptionist recommendation COVID-specific therapies have included remdesivir and dexamethasone Patient is empirically on azithromycin and ceftriaxone. No sputum cultures are available. Continue dexmedetomidine and Ativan as needed for comfort while on BiPAP Acute hypoxic respiratory failure, with oxygen support increasing. The increased O2 requirement may just be worsening COVID. Encourage self proning. Add Lasix if fluid balance is trending towards positive. DKA. Patient was switched off of insulin drip yesterday, with glargine added. Patient is requiring large amounts of supplemental insulin, so glargine was increased to 25 units twice daily. On full dose enoxaparin for saddle PE. Again, given the rising O2 requirement, we will check an echocardiogram to evaluate for any cardiac causes of hypoxia. Stress ulcer prophylaxis with Pepcid ADELE IZQUIERDO MD Jul 13, 2021 17:35
--- NOTE | 2021-07-13 18:35 | NUR ---
REPORT RECEIVED FROM KIRSTIE HERNANDES. ASSUMED PT CARE.
--- NOTE | 2021-07-13 21:09 | TELE.CONS ---
Assessment/Plan Assessment/Plan Assessment/Plan This is a late entry note reflecting care on 07/13/2021 between 12 PM and 6 PM. This is a 41-year-old man who was admitted on 07/09/2021 with COVID pneumonia, saddle PE, and DKA. Overnight, the patient was managed with Precedex for increasing anxiety. This morning on camera, BiPAP is set to 15/10, 60% with a rate of 25 and measured tidal volumes of 800 to 900 mL. The patient does not appear to be in distress. EMR data reviewed. Fluid balance for the past 24 hours was 890 mL in, 1.3 L out. No significant change in CBC. Creatinine 1.07, slightly increased from baseline, unclear trend. Blood glucose has been within goal range, 140-250. Diagnosis: Saddle PE, COVID pneumonia, acute respiratory failure, DKA (resolved) Management: COVID-specific therapies have included remdesivir and dexamethasone Patient has been empirically on azithromycin and ceftriaxone. No sputum cultures are available. He has completed a full course of azithromycin, so that was discontinued today. Continue dexmedetomidine and Ativan as needed for comfort while on BiPAP Acute hypoxic respiratory failure. FiO2 is able to be weaned down again overnight. Encourage self proning. Continue even to negative fluid balance, but we are watching the creatinine trend DKA resolved. The patient is now on glargine that was recently increased to 25 units twice daily. Full dose enoxaparin for saddle PE. Stress ulcer prophylaxis with Pepcid Plan reviewed with bedside team. Patient seen through remote audiovisual assessment through HIPAA compliant setup. All labs, flowsheets, and images reviewed Cumulative nonprocedural critical care time spent in directed patient care = 60min CAT CONNOLLY MD Jul 13, 2021 21:09
[2021-07-13] MEDS ORDERED: SUBLIMAZE IV PRN (23:00)
[2021-07-13] MEDS ORDERED: DIPRIVAN 100 ML IV SCH (23:00)
[2021-07-14] VITALS (89 sets, daily range): BP systolic 88–139; BP diastolic 48–83
[2021-07-14] MEDS: LANTUS SQ SCH ×2 (00:28→11:53)
[2021-07-14] MEDS: PRECEDEX 400 MCG/100 ML INJECT 100 ML IV PRN ×2 (02:54→17:48)
[2021-07-14 06:17] LABS: BASOPHIL % 0.1 % (0.0-0.2); LYMPHOCYTES # 0.65 10^3/uL1 (1.0-4.8); LYMPHOCYTES % 3.8 % (24.0-44.0); MEAN CORP HGB 27.8 pg (26-34); MONOCYTES # 1.3 10^3/uL (0.3-0.8); MONOCYTES % 7.6 % (5.0-12.0); NEUTROPHIL # 14.4 10^3/uL (1.8-7.7); NEUTROPHILS % 84.2 % (41.0-85.0); PLATELET COUNT 238 10^3/uL (150-400); RED CELL DISTRIBUTION WIDTH 13.5 % (11.5-14.5)
[2021-07-14 06:35] LABS: CARBON DIOXIDE 19.8 mmol/L (20.0-32)
--- NOTE | 2021-07-14 07:00 | NUR ---
REPORT TO ONCOMING SHIFT. PT CARE RELINQUISHED.
[2021-07-14 07:01] LABS: LYMPHOCYTE 1 % (25-36); MONOCYTE 4 % (3-9); SEGMENTED NEUTROPHILS 95 % (31-76)
[2021-07-14] MEDS: LOVENOX SQ SCH ×2 (08:57→20:53)
[2021-07-14] MEDS: DEXAMETHASONE 10 MG/ML VIAL IV SCH (08:57)
[2021-07-14] MEDS: PEPCID IV SCH ×2 (08:57→20:52)
[2021-07-14] MEDS: REMDESIVIR (EUA) 100 MG in NS 100ML 100 ML IV SCH (08:57)
[2021-07-14] MEDS: HUMALOG SQ SCH ×3 (08:59→17:48)
[2021-07-14] MEDS ORDERED: NS 250ML 250 ML ONE (09:01)
[2021-07-14] MEDS: ROCEPHIN 1,000 MG in NS 100ML 100 ML IV SCH (10:54)
--- NOTE | 2021-07-14 11:53 | TELE.CONS ---
Consultation History of Present Illness History of Patient Comments on bipap decreased 02 req. Review of Systems Constitutional: No: Fever, Chills, Sweats, Weakness, Malaise, Other Eyes: No: Pain, Vision change, Conjunctivae inflammation, Eyelid inflammation, Other, Redness ENT: No: Ear pain, Ear discharge, Nose pain, Nose discharge, Nose congestion, Mouth pain, Mouth swelling, Throat pain, Throat swelling, Other Respiratory: Cough, Shortness of breath, SOB with excertion, Pleuritic Pain Cardiovascular: Chest Pain; No: Palpitations, Orthopnea, Paroxysmal Noc. Dyspnea, Edema, Lt Headedness, Other Gastrointestinal: No: Nausea, Vomiting, Abdominal Pain, Diarrhea, Constipation, Melena, Hematochezia, Other Genitourinary: No Dysuria, No Frequency, No Incontinence, No Hematuria, No Retention, No Other Musculoskeletal: No: other, neck pain, shoulder pain, arm pain, back pain, hand pain, leg pain, foot pain Skin: No: Rash, Lesions, Jaundice, Bruising, Other Neurological: No: Weakness, Numbness, Incoordination, Change in speech, Confusion, Seizures, Other Allergies: Coded Allergies: No Known Drug Allergies (Verified Allergy, Unknown, 07/10/21) VITALS REVIEW VITALS Vital Sign - Last 24 Hours 07/14/21 07/14/21 07/14/21 07/14/21 08:02 08:15 08:17 08:30 Pulse 77 78 77 Resp 19 19 19 B/P (MAP) 111/67 (82) 107/65 (79) Pulse Ox 97 98 97 O2 Delivery C-Pap 07/14/21 07/14/21 07/14/21 07/14/21 08:30 08:32 08:45 08:47 Pulse 78 78 78 77 Resp 16 23 23 18 B/P (MAP) 116/75 (89) 101/63 (76) Pulse Ox 97 97 94 93 07/14/21 07/14/21 07/14/21 07/14/21 09:00 09:02 09:15 09:17 Pulse 77 76 77 76 Resp 18 23 18 17 B/P (MAP) 106/68 (81) 102/63 (76) Pulse Ox 97 96 95 96 07/14/21 07/14/21 07/14/21 07/14/21 09:30 09:32 09:45 09:47 Pulse 77 77 78 76 Resp 21 28 23 21 B/P (MAP) 100/66 (77) 94/58 (70) Pulse Ox 94 94 92 97 07/14/21 07/14/21 07/14/21 07/14/21 09:58 09:58 10:00 10:02 Pulse 81 81 76 76 Resp 21 21 19 19 B/P (MAP) 100/69 (79) Pulse Ox 97 96 98 100 O2 Delivery C-Pap FiO2 60 60 07/14/21 07/14/21 07/14/21 07/14/21 10:15 10:17 11:20 11:21 Pulse 76 76 81 Resp 17 17 21 B/P (MAP) 101/69 (80) Pulse Ox 96 100 96 96 O2 Delivery C-Pap O2 Flow Rate 45.00 FiO2 100 Intake and Output 07/14/21 07:00 Intake Total 600 ml Output Total 1100 ml Balance -500 ml LABS LAB RESULTS vitals and labs reviewed VTE VTE Risk Score VTE Risk: Score 0-1 = Low Risk (Aggressive mobilization; early ambulation; no VTE prophylaxis required) Score 2: Moderate Risk (Intermittent/Pneumatic Compression Device OR Lovenox/Heparin/Coumadin) Score 3-4: High Risk (Intermittent/Pneumatic Compression Device AND Lovenox/Heparin/Coumadin) Score > or =5: Highest Risk (Intermittent/Pneumatic Compression Device AND Lovenox/Heparin/Coumadin) Assessment/Plan Assessment/Plan Assessment/Plan COVID PNA ARDS acute resp failure 02 req. going down plan for HFNC titrate fi02 dvt/gi proph encourage po intake CCT 60 mins using HIPPA complaint audio/visual technology Duration Duration or Time Spent with Pa: 60 mins NOAH VICENTE MD Jul 14, 2021 11:53
--- NOTE | 2021-07-14 13:25 | PRM.PN ---
Subjective Subjective Date: Jul 14, 2021 Time: 08:30 Subjective Patient is seen and examined this morning, Patient requesting to eat. VTE VTE Risk Score VTE Risk: Score 0-1 = Low Risk (Aggressive mobilization; early ambulation; no VTE prophylaxis required) Score 2: Moderate Risk (Intermittent/Pneumatic Compression Device OR Lovenox/Heparin/Coumadin) Score 3-4: High Risk (Intermittent/Pneumatic Compression Device AND Lovenox/Heparin/Coumadin) Score > or =5: Highest Risk (Intermittent/Pneumatic Compression Device AND Lovenox/Heparin/Coumadin) Review of Systems Constitutional: No: Fever, Chills, Sweats, Weakness, Malaise, Other Eyes: No: Pain, Vision change, Conjunctivae inflammation, Eyelid inflammation, Other, Redness ENT: No: Ear pain, Ear discharge, Nose pain, Nose discharge, Nose congestion, Mouth pain, Mouth swelling, Throat pain, Throat swelling, Other Respiratory: Cough, Shortness of breath, SOB with excertion, Pleuritic Pain Cardiovascular: Chest Pain; No: Palpitations, Orthopnea, Paroxysmal Noc. Dyspnea, Edema, Lt Headedness, Other Gastrointestinal: No: Nausea, Vomiting, Abdominal Pain, Diarrhea, Constipation, Melena, Hematochezia, Other Genitourinary: No Dysuria, No Frequency, No Incontinence, No Hematuria, No Retention, No Other Musculoskeletal: No: other, neck pain, shoulder pain, arm pain, back pain, hand pain, leg pain, foot pain Skin: No: Rash, Lesions, Jaundice, Bruising, Other Neurological: No: Weakness, Numbness, Incoordination, Change in speech, Confusion, Seizures, Other Allergies: Coded Allergies: No Known Drug Allergies (Verified Allergy, Unknown, 07/10/21) Objective Vitals and I/O Vital Sign - Last 24 Hours 07/14/21 07/14/21 07/14/21 07/14/21 08:02 08:15 08:17 08:30 Pulse 77 78 77 Resp 19 19 19 B/P (MAP) 111/67 (82) 107/65 (79) Pulse Ox 97 98 97 O2 Delivery C-Pap 07/14/21 07/14/21 07/14/21 07/14/21 08:30 08:32 08:45 08:47 Pulse 78 78 78 77 Resp 16 23 23 18 B/P (MAP) 116/75 (89) 101/63 (76) Pulse Ox 97 97 94 93 07/14/21 07/14/21 07/14/21 07/14/21 09:00 09:02 09:15 09:17 Pulse 77 76 77 76 Resp 18 23 18 17 B/P (MAP) 106/68 (81) 102/63 (76) Pulse Ox 97 96 95 96 07/14/21 07/14/21 07/14/21 07/14/21 09:30 09:32 09:45 09:47 Pulse 77 77 78 76 Resp 21 B/P (MAP) 100/66 (77) 94/58 (70) Pulse Ox 94 94 92 97 07/14/21 07/14/21 07/14/21 07/14/21 09:58 09:58 10:00 10:02 Pulse 81 81 76 76 Resp 19 19 B/P (MAP) 100/69 (79) Pulse Ox 97 96 98 100 O2 Delivery C-Pap FiO2 60 60 07/14/21 07/14/21 07/14/21 07/14/21 10:15 10:17 10:30 10:32 Pulse 76 76 75 76 Resp 17 17 18 17 B/P (MAP) 101/69 (80) 102/62 (75) Pulse Ox 96 100 98 97 07/14/21 07/14/21 07/14/21 07/14/21 10:45 10:47 11:00 11:02 Pulse 75 75 78 81 Resp 16 17 27 20 B/P (MAP) 106/64 (78) 99/59 (72) Pulse Ox 98 98 94 81 07/14/21 07/14/21 07/14/21 07/14/21 11:15 11:17 11:20 11:21 Pulse 76 76 81 Resp 21 B/P (MAP) 103/74 (84) Pulse Ox 89 92 96 96 O2 Delivery C-Pap O2 Flow Rate 45.00 FiO2 100 07/14/21 07/14/21 07/14/21 07/14/21 11:30 11:32 11:45 11:47 Pulse 76 76 77 77 Resp 22 28 B/P (MAP) 107/65 (79) 106/65 (79) Pulse Ox 95 97 97 97 1/15/07/14/21 07/14/21 07/14/21 12:00 12:02 12:13 12:15 Pulse 77 76 77 Resp 28 33 24 B/P (MAP) 105/76 (86) Pulse Ox 95 94 96 O2 Delivery Comfort Yuan O2 Flow Rate 100.00 07/14/21 07/14/21 07/14/21 07/14/21 12:17 12:30 12:33 12:48 Temp 97.7 Pulse 77 79 79 Resp 25 36 B/P (MAP) 111/73 (86) 94/59 (71) 112/80 (91) Pulse Ox 96 95 92 98 Intake and Output 07/14/21 07:00 Intake Total 600 ml Output Total 1100 ml Balance -500 ml General: Alert, Oriented X3 HEENT: Atraumatic, PERRLA Neck: Supple, No JVD, No thyromegaly Lungs: Other (Decreased left lower lung sound) Heart: Regular rate, Normal S1, Normal S2 Abdomen: Normal bowel sounds, Soft, No tenderness Extremities: No clubbing, No cyanosis Skin: No rashes, No breakdown, No significant lesion All Results(Lab/Rad) Laboratory Tests Test 07/09/21 22:20 07/09/21 23:45 07/10/21 00:05 07/10/21 03:25 White Blood Count 14.5 10^3/uL Red Blood Count 4.62 10^6/uL Hemoglobin 12.8 g/dL Hematocrit 40.0 % Mean Corpuscular Volume 86.6 fL Mean Corpuscular Hemoglobin 27.7 pg Mean Corpuscular Hemoglobin Concent 32.0 g/dL Red Cell Distribution Width 13.3 % Platelet Count 148 10^3/uL Mean Platelet Volume 10.4 fL Neutrophils (%) (Auto) 85.7 % Lymphocytes (%) (Auto) 4.4 % Monocytes (%) (Auto) 7.4 % Neutrophils # (Auto) 12.4 10^3/uL Lymphocytes # (Auto) 0.63 10^3/uL1 Monocytes # (Auto) 1.1 10^3/uL Absolute Immature Granulocyte (auto 0.35 10^3 u/L Absolute Eosinophils (auto) 0.0 10^3/uL Immature Granulocytes % 2.40 % Eosinophils % 0.0 % Basophils % 0.1 % Basophils # 0.0 10^3/uL Sodium Level 137 mmol/L Potassium Level 4.0 mmol/L Chloride Level 100.0 mmol/L Carbon Dioxide Level 12.0 mmol/L Anion Gap 29.0 Blood Urea Nitrogen 22 mg/dL Creatinine 0.98 mg/dL Estimated GFR () 102.0 Est GFR (CKD-EPI)(Non-Afr Croatian) 84.3 BUN/Creatinine Ratio 22.0 Glucose Level 422 mg/dL Calcium Level 7.0 mg/dL Phosphorus Level 3.2 mg/dL Magnesium Level 1.9 mg/dL Total Bilirubin 0.6 mg/dL Aspartate Amino Transf (AST/SGOT) 22 U/L Alanine Aminotransferase (ALT/SGPT) 16 U/L Alkaline Phosphatase 183 U/L Total Protein 5.3 g/dL Albumin 1.8 g/dL Globulin 3.5 Albumin/Globulin Ratio 0.514 Acetone, Semi-Quantitative LARGE Lactic Acid Level 2.5 mmol/L Blood Gas Sample Site LR Blood Gas pH 7.202 Blood Gas PCO2 29.5 mmHg Blood Gas PO2 78.0 mmHg Blood Gas HCO3 11.3 mmol/L Blood Gas Base Excess -15.2 mmol/L Filiberto Test POSITIVE Arterial Blood Oxygen Saturation 93 % Deoxyhemoglobin 6.9 % Carboxyhemoglobin 0.8 % Methemoglobin 0.4 % Total Hemoglobin 15.1 % Total Oxygen Concentration 19.5 % Oxygen Delivery Method (LAB) BIPAP ST 16/[address] Blood Gas Vent Rate 25 FiO2 100 % Total Carbon Dioxide 12.2 mmol/L Lactic Acid Followup at 2 Hours 1.8 mmol/L Test 07/10/21 04:16 07/10/21 04:46 07/10/21 05:33 07/10/21 07:07 White Blood Count 14.8 10^3/uL Red Blood Count 4.66 10^6/uL Hemoglobin 13.5 g/dL Hematocrit 39.0 % Mean Corpuscular Volume 83.7 fL Mean Corpuscular Hemoglobin 29.0 pg Mean Corpuscular Hemoglobin Concent 34.6 g/dL Red Cell Distribution Width 13.2 % Platelet Count 149 10^3/uL Mean Platelet Volume 10.8 fL Neutrophils (%) (Auto) 86.3 % Lymphocytes (%) (Auto) 5.3 % Monocytes (%) (Auto) 8.3 % Neutrophils # (Auto) 12.8 10^3/uL Lymphocytes # (Auto) 0.78 10^3/uL1 Monocytes # (Auto) 1.2 10^3/uL Absolute Immature Granulocyte (auto 0.31 10^3 u/L Absolute Eosinophils (auto) 0.0 10^3/uL Immature Granulocytes % 2.10 % Eosinophils % 0.0 % Basophils % 0.1 % Basophils # 0.0 10^3/uL Sodium Level 132 mmol/L Potassium Level 3.9 mmol/L Chloride Level 97.0 mmol/L Carbon Dioxide Level 16.6 mmol/L Anion Gap 22.3 Blood Urea Nitrogen 24 mg/dL Creatinine 1.13 mg/dL Estimated GFR () 86.5 Est GFR (CKD-EPI)(Non-Afr Croatian) 71.5 BUN/Creatinine Ratio 21.0 Glucose Level 418 mg/dL Calcium Level 7.9 mg/dL Total Bilirubin 0.5 mg/dL Aspartate Amino Transf (AST/SGOT) 31 U/L Alanine Aminotransferase (ALT/SGPT) 21 U/L Alkaline Phosphatase 213 U/L Total Protein 6.0 g/dL Albumin 1.9 g/dL Globulin 4.1 Albumin/Globulin Ratio 0.463 Bedside Glucose 378 381 328 Test 07/10/21 08:13 07/10/21 08:17 07/10/21 09:12 Sodium Level 134 mmol/L Potassium Level 3.7 mmol/L Chloride Level 99.0 mmol/L Carbon Dioxide Level 22.8 mmol/L Glucose Level 340 mg/dL Blood Urea Nitrogen 23 mg/dL Creatinine 1.03 mg/dL Calcium Level 8.0 mg/dL Anion Gap 15.9 Estimated GFR () 96.3 Est GFR (CKD-EPI)(Non-Afr Croatian) 79.6 BUN/Creatinine Ratio 22.0 Bedside Glucose 270 332 Current Medications Medications (Trade) Dose Ordered Sig/Robby Route PRN Reason Start Time Stop Time Status Last Admin Dose Admin Ondansetron HCl (Zofran) 4 mg STK-MED ONCE .ROUTE 07/09/21 18:30 07/09/21 18:31 DC Ondansetron HCl (Zofran) 4 mg Q6HR PRN IV NAUSEA / VOMITING 07/09/21 19:00 08/08/21 18:59 07/09/21 21:20 Azithromycin 500 mg/Sodium Chloride 250 ml @ 175 mls/hr Q24HRS IV 07/09/21 19:00 2/9/22 18:59 07/09/21 19:00 Albuterol/ Ipratropium (Duo 0.5-3(2.5) Mg/3 ml) 3 ml RTQ4 IH 07/09/21 21:00 08/08/21 20:59 07/10/21 08:48 Morphine Sulfate (Morphine Sulfate) 1 mg Q6 PRN IV PAIN 4 - 6 07/09/21 19:00 08/08/21 18:59 Morphine Sulfate (Morphine Sulfate) 2 mg Q6 PRN IV PAIN 7 - 10 07/09/21 20:00 08/08/21 19:59 07/09/21 21:20 Sodium Chloride 250 ml @ ud STK-MED ONCE .ROUTE 07/09/21 20:52 07/09/21 20:52 DC Metoprolol Tartrate (Lopresser) 5 mg STK-MED ONCE .ROUTE 07/09/21 21:41 07/09/21 21:42 DC Metoprolol Tartrate (Lopresser) 5 mg STAT STAT IVP 07/09/21 21:43 07/09/21 22:00 DC 07/09/21 21:43 Insulin Human Lispro (Humalog) 0-140 0 Units 141-200... ACHS SQ 07/10/21 07:30 08/09/21 07:29 Hold Dextrose (Dextrose 50%-Water Syringe) 25 ml STAT PRN IV hypoglycemia 07/09/21 22:00 08/08/21 21:59 Enoxaparin Sodium (Lovenox) 40 mg Q24HRS SQ 07/09/21 22:00 08/08/21 21:59 07/09/21 22:00 Hydralazine HCl (Apresoline) 10 mg Q6HR PRN IV HYPERTENSION 07/09/21 22:00 08/08/21 21:59 Remdesivir 200 mg/ Sodium Chloride 140 ml @ 120.69 mls/ hr OT STAT IV 07/09/21 21:37 07/10/21 08:10 DC Remdesivir 100 mg/ Sodium Chloride 120 ml @ 111.111 mls/hr Q24HRS IV 07/10/21 22:00 07/10/21 08:22 DC Lorazepam (Ativan) 1 mg Q4HR PRN IM ANXIETY 07/09/21 22:00 08/08/21 21:59 07/09/21 23:50 Insulin Human Lispro (Humalog) 18 unit OT ONCE SQ 07/09/21 23:30 07/09/21 23:31 DC 07/09/21 23:30 Ondansetron HCl (Zofran) 4 mg Q4H PRN IV NAUSEA / VOMITING 07/09/21 23:30 08/08/21 23:29 Insulin Human Regular 100 unit/ Sodium Chloride 100 ml @ 5 mls/hr IV 07/09/21 23:30 07/10/21 01:10 DC Dextrose (Dextrose 50%-Water Syringe) 25 ml STAT PRN IV HYPOGLYCEMIA 07/09/21 23:30 08/08/21 23:29 Sodium Chloride 100 ml @ ud STK-MED ONCE IV 07/09/21 23:34 07/09/21 23:35 DC Insulin Human Regular (Humulin R) 1 unit STK-MED ONCE .ROUTE 07/09/21 23:35 07/09/21 23:35 DC Sodium Chloride 1,000 ml @ ud STK-MED ONCE .ROUTE 07/09/21 23:55 07/09/21 23:56 DC Insulin Human Regular 100 unit/ Sodium Chloride 100 ml @ 0 mls/hr TITRATE IV 07/10/21 01:30 08/09/21 01:29 07/10/21 00:02 Remdesivir 200 mg/ Sodium Chloride 140 ml @ 120.69 mls/ hr OT ONCE IV 07/10/21 09:00 07/10/21 10:09 07/10/21 09:00 Remdesivir 100 mg/ Sodium Chloride 120 ml @ 111.111 mls/hr Q24HRS IV 07/11/21 09:00 07/14/21 10:05 Sodium Chloride 100 ml @ ud STK-MED ONCE IV 07/10/21 09:37 07/10/21 09:37 DC Course Sepsis Screening Results: Posi: POSITIVE Sepsis Qualifier/Stage: SEVERE SEPSIS RISK Duration or Total Time Spent w: 60 mins Vitals & review Data Vital Sign - Last 24 Hours 07/10/21 07/10/21 07/10/21 07/10/21 08:00 08:49 08:50 08:51 Pulse 103 103 103 Resp 31 31 31 Pulse Ox 93 93 93 O2 Delivery Bi-pap Bi-pap O2 Flow Rate 100.00 FiO2 100 100 07/10/21 07/10/21 08:52 08:53 Pulse 108 Resp 28 Pulse Ox 94 O2 Flow Rate 45.00 FiO2 100 Intake and Output 07/10/21 07:00 Intake Total 1000 ml Output Total 2100 ml Balance -1100 ml Laboratory Tests Test 07/09/21 00:54 07/09/21 22:20 07/09/21 23:45 07/10/21 00:05 Urine Collection Type CCMS Urine Color YELLOW Urine Appearance TURBID Urine Bilirubin 1+ Urine Ketones 4+ Urine Specific [place] 1.025 Urine pH 5.5 Urine Protein 2+ Urine Urobilinogen 0.2 E.U./dL Urine Nitrate NEGATIVE Urine Leukocyte Esterase NEGATIVE Urine Glucose (Auto)(UA) 500 mg/dL Urine Blood 2+ Urine RBC TooNumerousToCount RBC/HPF Urine WBC NONE SEEN WBC/HPF Urine Squamous Epithelial Cells FEW Urine Bacteria FEW White Blood Count 14.5 10^3/uL Red Blood Count 4.62 10^6/uL Hemoglobin 12.8 g/dL Hematocrit 40.0 % Mean Corpuscular Volume 86.6 fL Mean Corpuscular Hemoglobin 27.7 pg Mean Corpuscular Hemoglobin Concent 32.0 g/dL Red Cell Distribution Width 13.3 % Platelet Count 148 10^3/uL Mean Platelet Volume 10.4 fL Neutrophils (%) (Auto) 85.7 % Lymphocytes (%) (Auto) 4.4 % Monocytes (%) (Auto) 7.4 % Neutrophils # (Auto) 12.4 10^3/uL Lymphocytes # (Auto) 0.63 10^3/uL1 Monocytes # (Auto) 1.1 10^3/uL Absolute Immature Granulocyte (auto 0.35 10^3 u/L Absolute Eosinophils (auto) 0.0 10^3/uL Immature Granulocytes % 2.40 % Eosinophils % 0.0 % Basophils % 0.1 % Basophils # 0.0 10^3/uL Sodium Level 137 mmol/L Potassium Level 4.0 mmol/L Chloride Level 100.0 mmol/L Carbon Dioxide Level 12.0 mmol/L Anion Gap 29.0 Blood Urea Nitrogen 22 mg/dL Creatinine 0.98 mg/dL Estimated GFR () 102.0 Est GFR (CKD-EPI)(Non-Afr Croatian) 84.3 BUN/Creatinine Ratio 22.0 Glucose Level 422 mg/dL Calcium Level 7.0 mg/dL Phosphorus Level 3.2 mg/dL Magnesium Level 1.9 mg/dL Total Bilirubin 0.6 mg/dL Aspartate Amino Transf (AST/SGOT) 22 U/L Alanine Aminotransferase (ALT/SGPT) 16 U/L Alkaline Phosphatase 183 U/L Total Protein 5.3 g/dL Albumin 1.8 g/dL Globulin 3.5 Albumin/Globulin Ratio 0.514 Acetone, Semi-Quantitative LARGE Lactic Acid Level 2.5 mmol/L Blood Gas Sample Site LR Blood Gas pH 7.202 Blood Gas PCO2 29.5 mmHg Blood Gas PO2 78.0 mmHg Blood Gas HCO3 11.3 mmol/L Blood Gas Base Excess -15.2 mmol/L Filiberto Test POSITIVE Arterial Blood Oxygen Saturation 93 % Deoxyhemoglobin 6.9 % Carboxyhemoglobin 0.8 % Methemoglobin 0.4 % Total Hemoglobin 15.1 % Total Oxygen Concentration 19.5 % Oxygen Delivery Method (LAB) BIPAP ST 16/[address] Blood Gas Vent Rate 25 FiO2 100 % Total Carbon Dioxide 12.2 mmol/L Test 07/10/21 03:25 07/10/21 04:16 07/10/21 04:46 07/10/21 05:33 Lactic Acid Followup at 2 Hours 1.8 mmol/L White Blood Count 14.8 10^3/uL Red Blood Count 4.66 10^6/uL Hemoglobin 13.5 g/dL Hematocrit 39.0 % Mean Corpuscular Volume 83.7 fL Mean Corpuscular Hemoglobin 29.0 pg Mean Corpuscular Hemoglobin Concent 34.6 g/dL Red Cell Distribution Width 13.2 % Platelet Count 149 10^3/uL Mean Platelet Volume 10.8 fL Neutrophils (%) (Auto) 86.3 % Lymphocytes (%) (Auto) 5.3 % Monocytes (%) (Auto) 8.3 % Neutrophils # (Auto) 12.8 10^3/uL Lymphocytes # (Auto) 0.78 10^3/uL1 Monocytes # (Auto) 1.2 10^3/uL Absolute Immature Granulocyte (auto 0.31 10^3 u/L Absolute Eosinophils (auto) 0.0 10^3/uL Immature Granulocytes % 2.10 % Eosinophils % 0.0 % Basophils % 0.1 % Basophils # 0.0 10^3/uL Sodium Level 132 mmol/L Potassium Level 3.9 mmol/L Chloride Level 97.0 mmol/L Carbon Dioxide Level 16.6 mmol/L Anion Gap 22.3 Blood Urea Nitrogen 24 mg/dL Creatinine 1.13 mg/dL Estimated GFR () 86.5 Est GFR (CKD-EPI)(Non-Afr Croatian) 71.5 BUN/Creatinine Ratio 21.0 Glucose Level 418 mg/dL Calcium Level 7.9 mg/dL Total Bilirubin 0.5 mg/dL Aspartate Amino Transf (AST/SGOT) 31 U/L Alanine Aminotransferase (ALT/SGPT) 21 U/L Alkaline Phosphatase 213 U/L Total Protein 6.0 g/dL Albumin 1.9 g/dL Globulin 4.1 Albumin/Globulin Ratio 0.463 Bedside Glucose 378 381 Test 07/10/21 07:07 07/10/21 08:13 07/10/21 08:17 07/10/21 09:12 Bedside Glucose 328 270 332 Sodium Level 134 mmol/L Potassium Level 3.7 mmol/L Chloride Level 99.0 mmol/L Carbon Dioxide Level 22.8 mmol/L Glucose Level 340 mg/dL Blood Urea Nitrogen 23 mg/dL Creatinine 1.03 mg/dL Calcium Level 8.0 mg/dL Anion Gap 15.9 Estimated GFR () 96.3 Est GFR (CKD-EPI)(Non-Afr Croatian) 79.6 BUN/Creatinine Ratio 22.0 Current Medications Medications (Trade) Dose Ordered Sig/Robby PRN Reason Start Time Stop Time Status Last Admin Albuterol/ Ipratropium (Duo 0.5-3(2.5) Mg/3 ml) 3 ml RTQ4 07/09/21 21:00 08/08/21 20:59 07/10/21 08:48 Azithromycin 500 mg/Sodium Chloride 250 ml @ 175 mls/hr Q24HRS 07/09/21 19:00 08/08/21 18:59 07/09/21 19:00 Dextrose (Dextrose 50%-Water Syringe) 25 ml STAT PRN hypoglycemia 07/09/21 22:00 08/08/21 21:59 Dextrose (Dextrose 50%-Water Syringe) 25 ml STAT PRN HYPOGLYCEMIA 07/09/21 23:30 08/08/21 23:29 Enoxaparin Sodium (Lovenox) 40 mg Q24HRS 07/09/21 22:00 08/08/21 21:59 07/09/21 22:00 Hydralazine HCl (Apresoline) 10 mg Q6HR PRN HYPERTENSION 07/09/21 22:00 08/08/21 21:59 Insulin Human Lispro (Humalog) 0-140 0 Units 141-200... ACHS 07/10/21 07:30 08/09/21 07:29 Hold Insulin Human Regular 100 unit/ Sodium Chloride 100 ml @ 0 mls/hr TITRATE 07/10/21 01:30 08/09/21 01:29 07/10/21 00:02 Lorazepam (Ativan) 1 mg Q4HR PRN ANXIETY 07/09/21 22:00 08/08/21 21:59 07/09/21 23:50 Morphine Sulfate (Morphine Sulfate) 1 mg Q6 PRN PAIN 4 - 6 07/09/21 19:00 08/08/21 18:59 Morphine Sulfate (Morphine Sulfate) 2 mg Q6 PRN PAIN 7 - 10 07/09/21 20:00 08/08/21 19:59 07/09/21 21:20 Ondansetron HCl (Zofran) 4 mg Q4H PRN NAUSEA / VOMITING 07/09/21 23:30 08/08/21 23:29 Ondansetron HCl (Zofran) 4 mg Q6HR PRN NAUSEA / VOMITING 07/09/21 19:00 08/08/21 18:59 07/09/21 21:20 Remdesivir 100 mg/ Sodium Chloride 120 ml @ 111.111 mls/hr Q24HRS 07/11/21 09:00 07/14/21 10:05 LEVEL 1 SEPSIS INFECTION CRITE: ABX Therapy, Cough/Shortness of Breath LEVEL 2-SIRS (LIST ALL THAT AP: RR>20/min, WBC>[id number] Cardiovascular Evidence: Not Assessed or None Hematologic Evidence: None/Not assessed Hepatic Evidence: None/Not assessed Metabolic Evidence: None/Not assessed Neurological Evidence: None/Not assessed Respiratory Evidence: Need for O2 to keep>90% Renal Evidence: None/Not assessed O2 Sat by Pulse Oximetry: 98 Oxygen Flow Rate: 100.00 Assessment/Plan Assessment/Plan Assessment/Plan COVID PNA ARDS acute resp failure 02 req. going down plan for HFNC titrate fi02 dvt/gi proph encourage po intake gently clear liquid diet ADELE IZQUIERDO MD Jul 14, 2021 13:25
--- NOTE | 2021-07-14 14:08 | NUR ---
O2 Check - pat remains on comfort flow 30 lpm/100% + NRB; spo2 98%; decreased fio2 to 90%; rt to continue to monitor Addendum: 07/14/21 at 1412 by Dejah Ogden RRT, Contract RT Amended: Links added.
--- NOTE | 2021-07-14 18:34 | NUR ---
report to oncoming shift
[2021-07-15] VITALS (23 sets, daily range): BP systolic 96–148; BP diastolic 55–85
[2021-07-15] MEDS: ATIVAN IV PRN (00:15)
[2021-07-15] MEDS: LANTUS SQ SCH ×2 (00:17→12:00)
[2021-07-15] MEDS: ROBITUSSIN DM PO PRN ×2 (00:28→23:45)
[2021-07-15] MEDS: MORPHINE SULFATE IV PRN ×2 (02:43→13:19)
[2021-07-15 05:26] LABS: BASOPHIL % 0.1 % (0.0-0.2); LYMPHOCYTES # 0.62 10^3/uL1 (1.0-4.8); LYMPHOCYTES % 3.5 % (24.0-44.0); MEAN CORP HGB 28.4 pg (26-34); MONOCYTES # 1.7 10^3/uL (0.3-0.8); MONOCYTES % 9.7 % (5.0-12.0); NEUTROPHIL # 15.3 10^3/uL (1.8-7.7); NEUTROPHILS % 86.7 % (41.0-85.0); PLATELET COUNT 264 10^3/uL (150-400); RED CELL DISTRIBUTION WIDTH 13.2 % (11.5-14.5)
[2021-07-15 05:38] LABS: CARBON DIOXIDE 23.9 mmol/L (20.0-32)
[2021-07-15 07:38] LABS: LYMPHOCYTE 2 % (25-36); MONOCYTE 5 % (3-9); SEGMENTED NEUTROPHILS 93 % (31-76)
[2021-07-15] MEDS: HUMALOG SQ SCH ×3 (08:00→17:47)
[2021-07-15] MEDS: PEPCID IV SCH ×2 (09:00→21:15)
[2021-07-15] MEDS: DEXAMETHASONE 10 MG/ML VIAL IV SCH (09:00)
[2021-07-15] MEDS: LOVENOX SQ SCH ×2 (09:00→21:15)
[2021-07-15] MEDS: ROCEPHIN 1,000 MG in NS 100ML 100 ML IV SCH (10:30)
[2021-07-15] MEDS: TESSALON PERLE PO PRN ×2 (12:00→19:39)
[2021-07-15] MEDS ORDERED: MELATONIN PO PRN (17:00)
--- NOTE | 2021-07-15 17:26 | TELE.CONS ---
Assessment/Plan Assessment/Plan Assessment/Plan This is a 41-year-old man who was admitted on 07/09/2021 with COVID-pneumonia, saddle PE, and DKA. This morning, the patient has been transitioned to high flow nasal cannula at 30 L/min, 90%. The patient is seen on camera, sitting up, using his phone. Oxygen saturation is 91%. He is no longer on Precedex. EMR data reviewed. Fluid balance 3.7 L in, 3.4 L out. CBC without significant change from prior. Sodium 124 (yesterday was 130), creatinine 0.77, blood glucose has been in the 300s. Dx: Saddle PE, COVID-pneumonia, acute respiratory failure, DKA has resolved but patient still has hyperglycemia Management: COVID-specific therapies have included remdesivir and dexamethasone Patient completed a course of azithromycin that was empiric. He remains on ceftriaxone since at least 07/10/2021 (was receiving care at [facility] prior to coming to [place]). We will discontinue ceftriaxone today. While on high flow nasal cannula, the patient is comfortable enough to be off continuous sedation. He continues to receive as needed morphine and Ativan nacho ecially when back on BiPAP. Continue to encourage self proning. Continue even to negative fluid balance if tolerated. Carb controlled diet was started today since the patient seems to be tolerating high flow nasal cannula. I have increased his glargine insulin once more, since he seems to be persistently glycemic even before any p.o. intake, and he is receiving 12 units with every dose. Full dose enoxaparin for saddle PE Stress ulcer prophylaxis with CAT Gatica MD Jul 15, 2021 17:26
--- NOTE | 2021-07-15 19:30 | NUR ---
Report received. pt started to desat due to coughing fit-PRN cough medicine given and nonrebreather 15L put on to recover. alert and oriented, denies pain. BP WNL. will continue to monitor
--- NOTE | 2021-07-15 19:31 | PRM.PN ---
Subjective Subjective Date: Jul 15, 2021 Time: 19:26 Subjective Patient states that he feels better today than he did yesterday. Currently on comfort flow VTE VTE Risk Score VTE Risk: Score 0-1 = Low Risk (Aggressive mobilization; early ambulation; no VTE prophylaxis required) Score 2: Moderate Risk (Intermittent/Pneumatic Compression Device OR Lovenox/Heparin/Coumadin) Score 3-4: High Risk (Intermittent/Pneumatic Compression Device AND Lovenox/Heparin/Coumadin) Score > or =5: Highest Risk (Intermittent/Pneumatic Compression Device AND Lovenox/Heparin/Coumadin) Antico:Hep/LMWH/Coum/Xarelto: Yes Review of Systems Constitutional: No: Fever, Chills, Sweats, Weakness, Malaise, Other Eyes: No: Pain, Vision change, Conjunctivae inflammation, Eyelid inflammation, Other, Redness ENT: No: Ear pain, Ear discharge, Nose pain, Nose discharge, Nose congestion, Mouth pain, Mouth swelling, Throat pain, Throat swelling, Other Respiratory: Cough, Shortness of breath, SOB with excertion, Pleuritic Pain Cardiovascular: Chest Pain; No: Palpitations, Orthopnea, Paroxysmal Noc. Dyspnea, Edema, Lt Headedness, Other Gastrointestinal: No: Nausea, Vomiting, Abdominal Pain, Diarrhea, Constipation, Melena, Hematochezia, Other Genitourinary: No Dysuria, No Frequency, No Incontinence, No Hematuria, No Retention, No Other Musculoskeletal: No: other, neck pain, shoulder pain, arm pain, back pain, hand pain, leg pain, foot pain Skin: No: Rash, Lesions, Jaundice, Bruising, Other Neurological: No: Weakness, Numbness, Incoordination, Change in speech, Confusion, Seizures, Other Allergies: Coded Allergies: No Known Drug Allergies (Verified Allergy, Unknown, 07/10/21) Objective Vitals and I/O Vital Sign - Last 24 Hours 07/15/21 07/15/21 07/15/21 07/15/21 07:00 07:15 07:19 07:30 Pulse 74 73 74 78 Resp B/P (MAP) 110/68 (82) Pulse Ox 92 89 89 91 O2 Delivery Comfort Yuan O2 Flow Rate 30.00 FiO2 90 07/15/21 07/15/21 07/15/21 07/15/21 07:30 07:31 07:32 07:33 Pulse 74 78 78 78 Resp 22 Pulse Ox 93 91 91 91 O2 Flow Rate 30.00 FiO2 90 07/15/21 07/15/21 07/15/21 07/15/21 07:45 08:00 08:00 08:15 Pulse 78 77 76 Resp 20 21 25 Pulse Ox 86 94 89 O2 Delivery Comfort Yuan O2 Flow Rate 30.00 07/15/21 07/15/21 07/15/21 07/15/21 08:20 08:30 08:45 09:00 Pulse 76 78 79 80 Resp 24 25 B/P (MAP) 111/63 (79) Pulse Ox 90 89 91 94 07/15/21 07/15/21 07/15/21 07/15/21 09:15 09:19 09:30 09:45 Pulse 80 79 83 83 Resp 30 29 29 B/P (MAP) 99/55 (70) Pulse Ox 95 96 95 95 07/15/21 07/15/21 07/15/21 07/15/21 10:00 10:15 10:19 10:30 Pulse 82 82 82 83 Resp 30 28 29 B/P (MAP) 113/66 (82) Pulse Ox 95 92 93 87 07/15/21 07/15/21 07/15/21 07/15/21 10:45 11:00 11:15 11:19 Pulse 83 82 85 84 Resp 20 22 B/P (MAP) 117/70 (86) Pulse Ox 92 93 89 91 07/15/21 07/15/21 07/15/21 07/15/21 11:30 11:45 12:00 12:15 Pulse 82 82 84 83 Resp 23 27 Pulse Ox 91 92 90 91 07/15/21 07/15/21 07/15/21 07/15/21 12:19 12:30 12:38 12:45 Pulse 83 82 90 Resp 24 33 55 B/P (MAP) 121/68 (85) Pulse Ox 92 88 90 O2 Delivery Comfort Yuan O2 Flow Rate 30.00 07/15/21 07/15/21 07/15/21 07/15/21 13:00 13:15 13:19 13:23 Pulse 88 92 92 84 Resp 22 B/P (MAP) 148/76 (100) Pulse Ox 91 78 87 94 O2 Delivery Comfort Yuan O2 Flow Rate 30.00 FiO2 90 07/15/21 07/15/21 07/15/21 07/15/21 13:24 13:30 13:45 14:00 Pulse 84 92 87 87 Resp 22 30 23 Pulse Ox 94 90 92 94 07/15/21 07/15/21 07/15/21 07/15/21 14:15 14:20 14:30 14:45 Pulse 89 89 90 91 Resp 28 22 26 29 B/P (MAP) 103/59 (74) Pulse Ox 91 94 89 94 07/15/21 07/15/21 07/15/21 07/15/21 15:00 15:15 15:19 15:30 Pulse 90 91 89 90 Resp 33 29 29 B/P (MAP) 111/66 (81) Pulse Ox 82 89 89 95 07/15/21 07/15/21 07/15/21 07/15/21 15:45 16:00 16:11 16:12 Pulse 89 90 82 82 Resp Pulse Ox 98 89 94 94 O2 Delivery Comfort Yuan O2 Flow Rate 30.00 FiO2 90 60 07/15/21 07/15/21 07/15/21 07/15/21 16:13 16:15 16:19 16:30 Pulse 82 91 93 Resp 22 42 25 B/P (MAP) 130/65 (86) Pulse Ox 94 94 93 O2 Delivery Comfort Yuan O2 Flow Rate 25.00 07/15/21 07/15/21 07/15/21 07/15/21 16:45 17:00 17:15 17:19 Pulse 91 92 96 92 Resp 33 24 B/P (MAP) 130/65 (86) Pulse Ox 92 90 94 96 07/15/21 07/15/21 07/15/21 17:30 17:45 18:00 Pulse 90 93 96 Resp 28 B/P (MAP) 136/85 (102) Pulse Ox 94 90 90 Intake and Output 07/15/21 07:00 Intake Total 3768 ml Output Total 3400 ml Balance 368 ml General: Alert, Oriented X3, Other (On comfort flow) HEENT: Atraumatic, PERRLA Neck: Supple, No JVD, No thyromegaly Lungs: Other (Decreased left lower lung sound) Heart: Regular rate, Normal S1, Normal S2 Abdomen: Normal bowel sounds, Soft, No tenderness Extremities: No clubbing, No cyanosis Skin: No rashes, No breakdown, No significant lesion Neuro: Normal speech, Strength at 5/5 X4 ext Psych/Mental Status: Mood NL All Results(Lab/Rad) Laboratory Tests Test 07/09/21 22:20 07/09/21 23:45 07/10/21 00:05 07/10/21 03:25 White Blood Count 14.5 10^3/uL Red Blood Count 4.62 10^6/uL Hemoglobin 12.8 g/dL Hematocrit 40.0 % Mean Corpuscular Volume 86.6 fL Mean Corpuscular Hemoglobin 27.7 pg Mean Corpuscular Hemoglobin Concent 32.0 g/dL Red Cell Distribution Width 13.3 % Platelet Count 148 10^3/uL Mean Platelet Volume 10.4 fL Neutrophils (%) (Auto) 85.7 % Lymphocytes (%) (Auto) 4.4 % Monocytes (%) (Auto) 7.4 % Neutrophils # (Auto) 12.4 10^3/uL Lymphocytes # (Auto) 0.63 10^3/uL1 Monocytes # (Auto) 1.1 10^3/uL Absolute Immature Granulocyte (auto 0.35 10^3 u/L Absolute Eosinophils (auto) 0.0 10^3/uL Immature Granulocytes % 2.40 % Eosinophils % 0.0 % Basophils % 0.1 % Basophils # 0.0 10^3/uL Sodium Level 137 mmol/L Potassium Level 4.0 mmol/L Chloride Level 100.0 mmol/L Carbon Dioxide Level 12.0 mmol/L Anion Gap 29.0 Blood Urea Nitrogen 22 mg/dL Creatinine 0.98 mg/dL Estimated GFR () 102.0 Est GFR (CKD-EPI)(Non-Afr Ukrainian) 84.3 BUN/Creatinine Ratio 22.0 Glucose Level 422 mg/dL Calcium Level 7.0 mg/dL Phosphorus Level 3.2 mg/dL Magnesium Level 1.9 mg/dL Total Bilirubin 0.6 mg/dL Aspartate Amino Transf (AST/SGOT) 22 U/L Alanine Aminotransferase (ALT/SGPT) 16 U/L Alkaline Phosphatase 183 U/L Total Protein 5.3 g/dL Albumin 1.8 g/dL Globulin 3.5 Albumin/Globulin Ratio 0.514 Acetone, Semi-Quantitative LARGE Lactic Acid Level 2.5 mmol/L Blood Gas Sample Site LR Blood Gas pH 7.202 Blood Gas PCO2 29.5 mmHg Blood Gas PO2 78.0 mmHg Blood Gas HCO3 11.3 mmol/L Blood Gas Base Excess -15.2 mmol/L Filiberto Test POSITIVE Arterial Blood Oxygen Saturation 93 % Deoxyhemoglobin 6.9 % Carboxyhemoglobin 0.8 % Methemoglobin 0.4 % Total Hemoglobin 15.1 % Total Oxygen Concentration 19.5 % Oxygen Delivery Method (LAB) BIPAP ST 16/[address] Blood Gas Vent Rate 25 FiO2 100 % Total Carbon Dioxide 12.2 mmol/L Lactic Acid Followup at 2 Hours 1.8 mmol/L Test 07/10/21 04:16 07/10/21 04:46 07/10/21 05:33 07/10/21 07:07 White Blood Count 14.8 10^3/uL Red Blood Count 4.66 10^6/uL Hemoglobin 13.5 g/dL Hematocrit 39.0 % Mean Corpuscular Volume 83.7 fL Mean Corpuscular Hemoglobin 29.0 pg Mean Corpuscular Hemoglobin Concent 34.6 g/dL Red Cell Distribution Width 13.2 % Platelet Count 149 10^3/uL Mean Platelet Volume 10.8 fL Neutrophils (%) (Auto) 86.3 % Lymphocytes (%) (Auto) 5.3 % Monocytes (%) (Auto) 8.3 % Neutrophils # (Auto) 12.8 10^3/uL Lymphocytes # (Auto) 0.78 10^3/uL1 Monocytes # (Auto) 1.2 10^3/uL Absolute Immature Granulocyte (auto 0.31 10^3 u/L Absolute Eosinophils (auto) 0.0 10^3/uL Immature Granulocytes % 2.10 % Eosinophils % 0.0 % Basophils % 0.1 % Basophils # 0.0 10^3/uL Sodium Level 132 mmol/L Potassium Level 3.9 mmol/L Chloride Level 97.0 mmol/L Carbon Dioxide Level 16.6 mmol/L Anion Gap 22.3 Blood Urea Nitrogen 24 mg/dL Creatinine 1.13 mg/dL Estimated GFR () 86.5 Est GFR (CKD-EPI)(Non-Afr Ukrainian) 71.5 BUN/Creatinine Ratio 21.0 Glucose Level 418 mg/dL Calcium Level 7.9 mg/dL Total Bilirubin 0.5 mg/dL Aspartate Amino Transf (AST/SGOT) 31 U/L Alanine Aminotransferase (ALT/SGPT) 21 U/L Alkaline Phosphatase 213 U/L Total Protein 6.0 g/dL Albumin 1.9 g/dL Globulin 4.1 Albumin/Globulin Ratio 0.463 Bedside Glucose 378 381 328 Test 07/10/21 08:13 07/10/21 08:17 07/10/21 09:12 Sodium Level 134 mmol/L Potassium Level 3.7 mmol/L Chloride Level 99.0 mmol/L Carbon Dioxide Level 22.8 mmol/L Glucose Level 340 mg/dL Blood Urea Nitrogen 23 mg/dL Creatinine 1.03 mg/dL Calcium Level 8.0 mg/dL Anion Gap 15.9 Estimated GFR () 96.3 Est GFR (CKD-EPI)(Non-Afr Ukrainian) 79.6 BUN/Creatinine Ratio 22.0 Bedside Glucose 270 332 Current Medications Medications (Trade) Dose Ordered Sig/Robby Route PRN Reason Start Time Stop Time Status Last Admin Dose Admin Ondansetron HCl (Zofran) 4 mg STK-MED ONCE .ROUTE 07/09/21 18:30 07/09/21 18:31 DC Ondansetron HCl (Zofran) 4 mg Q6HR PRN IV NAUSEA / VOMITING 07/09/21 19:00 08/08/21 18:59 07/09/21 21:20 Azithromycin 500 mg/Sodium Chloride 250 ml @ 175 mls/hr Q24HRS IV 07/09/21 19:00 08/08/21 18:59 07/09/21 19:00 Albuterol/ Ipratropium (Duo 0.5-3(2.5) Mg/3 ml) 3 ml RTQ4 IH 07/09/21 21:00 08/08/21 20:59 07/10/21 08:48 Morphine Sulfate (Morphine Sulfate) 1 mg Q6 PRN IV PAIN 4 - 6 07/09/21 19:00 08/08/21 18:59 Morphine Sulfate (Morphine Sulfate) 2 mg Q6 PRN IV PAIN 7 - 10 07/09/21 20:00 08/08/21 19:59 07/09/21 21:20 Sodium Chloride 250 ml @ ud STK-MED ONCE .ROUTE 07/09/21 20:52 07/09/21 20:52 DC Metoprolol Tartrate (Lopresser) 5 mg STK-MED ONCE .ROUTE 07/09/21 21:41 07/09/21 21:42 DC Metoprolol Tartrate (Lopresser) 5 mg STAT STAT IVP 07/09/21 21:43 07/09/21 22:00 DC 07/09/21 21:43 Insulin Human Lispro (Humalog) 0-140 0 Units 141-200... ACHS SQ 07/10/21 07:30 08/09/21 07:29 Hold Dextrose (Dextrose 50%-Water Syringe) 25 ml STAT PRN IV hypoglycemia 07/09/21 22:00 08/08/21 21:59 Enoxaparin Sodium (Lovenox) 40 mg Q24HRS SQ 07/09/21 22:00 08/08/21 21:59 07/09/21 22:00 Hydralazine HCl (Apresoline) 10 mg Q6HR PRN IV HYPERTENSION 07/09/21 22:00 08/08/21 21:59 Remdesivir 200 mg/ Sodium Chloride 140 ml @ 120.69 mls/ hr OT STAT IV 07/09/21 21:37 07/10/21 08:10 DC Remdesivir 100 mg/ Sodium Chloride 120 ml @ 111.111 mls/hr Q24HRS IV 07/10/21 22:00 07/10/21 08:22 DC Lorazepam (Ativan) 1 mg Q4HR PRN IM ANXIETY 07/09/21 22:00 08/08/21 21:59 07/09/21 23:50 Insulin Human Lispro (Humalog) 18 unit OT ONCE SQ 07/09/21 23:30 07/09/21 23:31 DC 07/09/21 23:30 Ondansetron HCl (Zofran) 4 mg Q4H PRN IV NAUSEA / VOMITING 07/09/21 23:30 08/08/21 23:29 Insulin Human Regular 100 unit/ Sodium Chloride 100 ml @ 5 mls/hr IV 07/09/21 23:30 07/10/21 01:10 DC Dextrose (Dextrose 50%-Water Syringe) 25 ml STAT PRN IV HYPOGLYCEMIA 07/09/21 23:30 08/08/21 23:29 Sodium Chloride 100 ml @ ud STK-MED ONCE IV 07/09/21 23:34 07/09/21 23:35 DC Insulin Human Regular (Humulin R) 1 unit STK-MED ONCE .ROUTE 07/09/21 23:35 07/09/21 23:35 DC Sodium Chloride 1,000 ml @ ud STK-MED ONCE .ROUTE 07/09/21 23:55 07/09/21 23:56 DC Insulin Human Regular 100 unit/ Sodium Chloride 100 ml @ 0 mls/hr TITRATE IV 07/10/21 01:30 08/09/21 01:29 07/10/21 00:02 Remdesivir 200 mg/ Sodium Chloride 140 ml @ 120.69 mls/ hr OT ONCE IV 07/10/21 09:00 07/10/21 10:09 07/10/21 09:00 Remdesivir 100 mg/ Sodium Chloride 120 ml @ 111.111 mls/hr Q24HRS IV 07/11/21 09:00 07/14/21 10:05 Sodium Chloride 100 ml @ ud STK-MED ONCE IV 07/10/21 09:37 07/10/21 09:37 DC Course Sepsis Screening Results: Posi: POSITIVE Sepsis Qualifier/Stage: SEVERE SEPSIS RISK Duration or Total Time Spent w: 60 mins Vitals & review Data Vital Sign - Last 24 Hours 07/10/21 07/10/21 07/10/21 07/10/21 08:00 08:49 08:50 08:51 Pulse 103 103 103 Resp 31 31 31 Pulse Ox 93 93 93 O2 Delivery Bi-pap Bi-pap O2 Flow Rate 100.00 FiO2 100 100 07/10/21 07/10/21 08:52 08:53 Pulse 108 Resp 28 Pulse Ox 94 O2 Flow Rate 45.00 FiO2 100 Intake and Output 07/10/21 07:00 Intake Total 1000 ml Output Total 2100 ml Balance -1100 ml Laboratory Tests Test 07/09/21 00:54 07/09/21 22:20 07/09/21 23:45 07/10/21 00:05 Urine Collection Type CCMS Urine Color YELLOW Urine Appearance TURBID Urine Bilirubin 1+ Urine Ketones 4+ Urine Specific [place] 1.025 Urine pH 5.5 Urine Protein 2+ Urine Urobilinogen 0.2 E.U./dL Urine Nitrate NEGATIVE Urine Leukocyte Esterase NEGATIVE Urine Glucose (Auto)(UA) 500 mg/dL Urine Blood 2+ Urine RBC TooNumerousToCount RBC/HPF Urine WBC NONE SEEN WBC/HPF Urine Squamous Epithelial Cells FEW Urine Bacteria FEW White Blood Count 14.5 10^3/uL Red Blood Count 4.62 10^6/uL Hemoglobin 12.8 g/dL Hematocrit 40.0 % Mean Corpuscular Volume 86.6 fL Mean Corpuscular Hemoglobin 27.7 pg Mean Corpuscular Hemoglobin Concent 32.0 g/dL Red Cell Distribution Width 13.3 % Platelet Count 148 10^3/uL Mean Platelet Volume 10.4 fL Neutrophils (%) (Auto) 85.7 % Lymphocytes (%) (Auto) 4.4 % Monocytes (%) (Auto) 7.4 % Neutrophils # (Auto) 12.4 10^3/uL Lymphocytes # (Auto) 0.63 10^3/uL1 Monocytes # (Auto) 1.1 10^3/uL Absolute Immature Granulocyte (auto 0.35 10^3 u/L Absolute Eosinophils (auto) 0.0 10^3/uL Immature Granulocytes % 2.40 % Eosinophils % 0.0 % Basophils % 0.1 % Basophils # 0.0 10^3/uL Sodium Level 137 mmol/L Potassium Level 4.0 mmol/L Chloride Level 100.0 mmol/L Carbon Dioxide Level 12.0 mmol/L Anion Gap 29.0 Blood Urea Nitrogen 22 mg/dL Creatinine 0.98 mg/dL Estimated GFR () 102.0 Est GFR (CKD-EPI)(Non-Afr Ukrainian) 84.3 BUN/Creatinine Ratio 22.0 Glucose Level 422 mg/dL Calcium Level 7.0 mg/dL Phosphorus Level 3.2 mg/dL Magnesium Level 1.9 mg/dL Total Bilirubin 0.6 mg/dL Aspartate Amino Transf (AST/SGOT) 22 U/L Alanine Aminotransferase (ALT/SGPT) 16 U/L Alkaline Phosphatase 183 U/L Total Protein 5.3 g/dL Albumin 1.8 g/dL Globulin 3.5 Albumin/Globulin Ratio 0.514 Acetone, Semi-Quantitative LARGE Lactic Acid Level 2.5 mmol/L Blood Gas Sample Site LR Blood Gas pH 7.202 Blood Gas PCO2 29.5 mmHg Blood Gas PO2 78.0 mmHg Blood Gas HCO3 11.3 mmol/L Blood Gas Base Excess -15.2 mmol/L Filiberto Test POSITIVE Arterial Blood Oxygen Saturation 93 % Deoxyhemoglobin 6.9 % Carboxyhemoglobin 0.8 % Methemoglobin 0.4 % Total Hemoglobin 15.1 % Total Oxygen Concentration 19.5 % Oxygen Delivery Method (LAB) BIPAP ST 16/[address] Blood Gas Vent Rate 25 FiO2 100 % Total Carbon Dioxide 12.2 mmol/L Test 07/10/21 03:25 07/10/21 04:16 07/10/21 04:46 07/10/21 05:33 Lactic Acid Followup at 2 Hours 1.8 mmol/L White Blood Count 14.8 10^3/uL Red Blood Count 4.66 10^6/uL Hemoglobin 13.5 g/dL Hematocrit 39.0 % Mean Corpuscular Volume 83.7 fL Mean Corpuscular Hemoglobin 29.0 pg Mean Corpuscular Hemoglobin Concent 34.6 g/dL Red Cell Distribution Width 13.2 % Platelet Count 149 10^3/uL Mean Platelet Volume 10.8 fL Neutrophils (%) (Auto) 86.3 % Lymphocytes (%) (Auto) 5.3 % Monocytes (%) (Auto) 8.3 % Neutrophils # (Auto) 12.8 10^3/uL Lymphocytes # (Auto) 0.78 10^3/uL1 Monocytes # (Auto) 1.2 10^3/uL Absolute Immature Granulocyte (auto 0.31 10^3 u/L Absolute Eosinophils (auto) 0.0 10^3/uL Immature Granulocytes % 2.10 % Eosinophils % 0.0 % Basophils % 0.1 % Basophils # 0.0 10^3/uL Sodium Level 132 mmol/L Potassium Level 3.9 mmol/L Chloride Level 97.0 mmol/L Carbon Dioxide Level 16.6 mmol/L Anion Gap 22.3 Blood Urea Nitrogen 24 mg/dL Creatinine 1.13 mg/dL Estimated GFR () 86.5 Est GFR (CKD-EPI)(Non-Afr Ukrainian) 71.5 BUN/Creatinine Ratio 21.0 Glucose Level 418 mg/dL Calcium Level 7.9 mg/dL Total Bilirubin 0.5 mg/dL Aspartate Amino Transf (AST/SGOT) 31 U/L Alanine Aminotransferase (ALT/SGPT) 21 U/L Alkaline Phosphatase 213 U/L Total Protein 6.0 g/dL Albumin 1.9 g/dL Globulin 4.1 Albumin/Globulin Ratio 0.463 Bedside Glucose 378 381 Test 07/10/21 07:07 07/10/21 08:13 07/10/21 08:17 07/10/21 09:12 Bedside Glucose 328 270 332 Sodium Level 134 mmol/L Potassium Level 3.7 mmol/L Chloride Level 99.0 mmol/L Carbon Dioxide Level 22.8 mmol/L Glucose Level 340 mg/dL Blood Urea Nitrogen 23 mg/dL Creatinine 1.03 mg/dL Calcium Level 8.0 mg/dL Anion Gap 15.9 Estimated GFR () 96.3 Est GFR (CKD-EPI)(Non-Afr Ukrainian) 79.6 BUN/Creatinine Ratio 22.0 Current Medications Medications (Trade) Dose Ordered Sig/Robby PRN Reason Start Time Stop Time Status Last Admin Albuterol/ Ipratropium (Duo 0.5-3(2.5) Mg/3 ml) 3 ml RTQ4 07/09/21 21:00 08/08/21 20:59 07/10/21 08:48 Azithromycin 500 mg/Sodium Chloride 250 ml @ 175 mls/hr Q24HRS 07/09/21 19:00 08/08/21 18:59 07/09/21 19:00 Dextrose (Dextrose 50%-Water Syringe) 25 ml STAT PRN hypoglycemia 07/09/21 22:00 08/08/21 21:59 Dextrose (Dextrose 50%-Water Syringe) 25 ml STAT PRN HYPOGLYCEMIA 07/09/21 23:30 08/08/21 23:29 Enoxaparin Sodium (Lovenox) 40 mg Q24HRS 07/09/21 22:00 08/08/21 21:59 07/09/21 22:00 Hydralazine HCl (Apresoline) 10 mg Q6HR PRN HYPERTENSION 07/09/21 22:00 08/08/21 21:59 Insulin Human Lispro (Humalog) 0-140 0 Units 141-200... ACHS 07/10/21 07:30 08/09/21 07:29 Hold Insulin Human Regular 100 unit/ Sodium Chloride 100 ml @ 0 mls/hr TITRATE 07/10/21 01:30 08/09/21 01:29 07/10/21 00:02 Lorazepam (Ativan) 1 mg Q4HR PRN ANXIETY 07/09/21 22:00 08/08/21 21:59 07/09/21 23:50 Morphine Sulfate (Morphine Sulfate) 1 mg Q6 PRN PAIN 4 - 6 07/09/21 19:00 08/08/21 18:59 Morphine Sulfate (Morphine Sulfate) 2 mg Q6 PRN PAIN 7 - 10 07/09/21 20:00 08/08/21 19:59 07/09/21 21:20 Ondansetron HCl (Zofran) 4 mg Q4H PRN NAUSEA / VOMITING 07/09/21 23:30 08/08/21 23:29 Ondansetron HCl (Zofran) 4 mg Q6HR PRN NAUSEA / VOMITING 07/09/21 19:00 08/08/21 18:59 07/09/21 21:20 Remdesivir 100 mg/ Sodium Chloride 120 ml @ 111.111 mls/hr Q24HRS 07/11/21 09:00 07/14/21 10:05 LEVEL 1 SEPSIS INFECTION CRITE: Cough/Shortness of Breath LEVEL 2-SIRS (LIST ALL THAT AP: RR>20/min, WBC>[id number] Cardiovascular Evidence: Not Assessed or None Hematologic Evidence: None/Not assessed Hepatic Evidence: None/Not assessed Metabolic Evidence: None/Not assessed Neurological Evidence: None/Not assessed Respiratory Evidence: Need for O2 to keep>90% Renal Evidence: None/Not assessed O2 Sat by Pulse Oximetry: 90 Oxygen Flow Rate: 25.00 Assessment/Plan Assessment/Plan Assessment/Plan COVID PNA ARDS acute resp failure 02 req. going down plan for HFNC titrate fi02 dvt/gi proph encourage po intake gently clear liquid diet Critical Care Recommendations: Dx: Saddle PE, COVID-pneumonia, acute respiratory failure, DKA has resolved but patient still has hyperglycemia Management: COVID-specific therapies have included remdesivir and dexamethasone Patient completed a course of azithromycin that was empiric. He remains on ceftriaxone since at least 07/10/2021 (was receiving care at [facility] prior to coming to [place]). We will discontinue ceftriaxone today. While on high flow nasal cannula, the patient is comfortable enough to be off continuous sedation. He continues to receive as needed morphine and Ativan especially when back on BiPAP. Continue to encourage self proning. Continue even to negative fluid balance if tolerated. Carb controlled diet was started today since the patient seems to be tolerating high flow nasal cannula. I have increased his glargine insulin once more, since he seems to be persistently glycemic even before any p.o. intake, and he is receiving 12 units with every dose. Full dose enoxaparin for saddle PE Stress ulcer prophylaxis with Pepcid FULL CODE ABDOULAYE SINGH MD Jul 15, 2021 19:31
[2021-07-15] MEDS: MUCINEX PO SCH (21:15)
[2021-07-16] VITALS (19 sets, daily range): BP systolic 99–135; BP diastolic 61–85
[2021-07-16] MEDS: ROBITUSSIN DM PO PRN (03:45)
[2021-07-16 05:03] LABS: BASOPHIL % 0.1 % (0.0-0.2); LYMPHOCYTES # 0.62 10^3/uL1 (1.0-4.8); LYMPHOCYTES % 3.5 % (24.0-44.0); MEAN CORP HGB 28.2 pg (26-34); MONOCYTES # 2.2 10^3/uL (0.3-0.8); MONOCYTES % 12.7 % (5.0-12.0); NEUTROPHIL # 14.7 10^3/uL (1.8-7.7); NEUTROPHILS % 83.7 % (41.0-85.0); PLATELET COUNT 313 10^3/uL (150-400)
[2021-07-16 05:23] LABS: CARBON DIOXIDE 24.6 mmol/L (20.0-32)
[2021-07-16 06:05] LABS: LYMPHOCYTE 2 % (25-36); SEGMENTED NEUTROPHILS 90 % (31-76)
[2021-07-16 06:06] LABS: MONOCYTE 8 % (3-9)
[2021-07-16] MEDS: HUMALOG SQ SCH ×3 (08:00→17:44)
[2021-07-16] MEDS: DEXAMETHASONE 10 MG/ML VIAL IV SCH (08:12)
[2021-07-16] MEDS: PEPCID IV SCH ×2 (08:12→21:45)
[2021-07-16] MEDS: MUCINEX PO SCH ×2 (08:12→21:45)
[2021-07-16] MEDS: LOVENOX SQ SCH ×2 (08:12→21:45)
[2021-07-16] MEDS: MORPHINE SULFATE IV PRN ×4 (11:13→22:00)
[2021-07-16] MEDS: TESSALON PERLE PO PRN ×2 (11:13→16:13)
[2021-07-16] MEDS ORDERED: PROAMATINE PO ONE (11:57)
[2021-07-16] MEDS ORDERED: WATER ONE (11:58)
[2021-07-16] MEDS: LANTUS SQ SCH ×2 (12:00)
--- NOTE | 2021-07-16 16:51 | TELE.CONS ---
Review of Systems Constitutional: No: Fever, Chills, Sweats, Weakness, Malaise, Other Eyes: No: Pain, Vision change, Conjunctivae inflammation, Eyelid inflammation, Other, Redness ENT: No: Ear pain, Ear discharge, Nose pain, Nose discharge, Nose congestion, Mouth pain, Mouth swelling, Throat pain, Throat swelling, Other Respiratory: Cough, Shortness of breath, SOB with excertion, Pleuritic Pain Cardiovascular: Chest Pain; No: Palpitations, Orthopnea, Paroxysmal Noc. Dyspn ea, Edema, Lt Headedness, Other Gastrointestinal: No: Nausea, Vomiting, Abdominal Pain, Diarrhea, Constipation, Melena, Hematochezia, Other Genitourinary: No Dysuria, No Frequency, No Incontinence, No Hematuria, No Retention, No Other Musculoskeletal: No: other, neck pain, shoulder pain, arm pain, back pain, hand pain, leg pain, foot pain Skin: No: Rash, Lesions, Jaundice, Bruising, Other Neurological: No: Weakness, Numbness, Incoordination, Change in speech, Confusion, Seizures, Other Allergies: Coded Allergies: No Known Drug Allergies (Verified Allergy, Unknown, 07/10/21) VITALS REVIEW VITALS Vital Sign - Last 24 Hours 07/12/21 07/12/21 07/12/21 07/12/21 07:00 07:03 07:15 07:18 Pulse 93 94 93 94 Resp 28 B/P (MAP) 121/75 (90) 149/58 (88) Pulse Ox 89 89 88 95 07/12/21 07/12/21 07/12/21 07/12/21 07:30 07:33 07:37 08:00 Temp 97.9 Pulse 95 95 Resp 25 B/P (MAP) 120/85 (97) Pulse Ox 85 89 O2 Delivery Bi-pap O2 Flow Rate 70.00 07/12/21 07/12/21 07/12/21 07/12/21 08:30 08:33 08:45 08:48 Pulse 98 98 97 97 Resp 28 B/P (MAP) 132/88 (103) 128/88 (101) Pulse Ox 92 92 91 92 07/12/21 07/12/21 07/12/21 07/12/21 08:50 08:50 09:00 09:00 Temp 98.0 Pulse 95 98 100 Resp 26 26 25 Pulse Ox 92 91 89 O2 Delivery Bi-pap S/T FiO2 90 90 07/12/21 07/12/21 07/12/21 07/12/21 09:03 09:15 09:18 09:30 Pulse 99 101 101 100 Resp 27 26 26 25 B/P (MAP) 135/96 (109) 132/90 (104) Pulse Ox 88 87 87 86 07/12/21 07/12/21 07/12/21 07/12/21 09:33 09:45 09:48 10:00 Pulse 100 100 101 102 Resp 25 27 25 B/P (MAP) 125/76 (92) 127/85 (99) Pulse Ox 87 91 90 84 07/12/21 07/12/21 07/12/21 07/12/21 10:00 10:03 10:15 10:15 Temp 97.9 Pulse 103 98 102 Resp 38 26 41 B/P (MAP) 137/92 (107) Pulse Ox 85 91 90 O2 Delivery S/T FiO2 90 07/12/21 07/12/21 07/12/21 07/12/21 10:18 10:30 10:33 10:45 Pulse 102 103 102 102 Resp 46 25 24 30 B/P (MAP) 133/85 (101) 134/61 (85) Pulse Ox 90 89 92 92 07/12/21 07/12/21 07/12/21 07/12/21 11:00 11:03 11:15 11:18 Pulse 108 103 105 105 Resp 25 26 24 B/P (MAP) 144/93 (110) 140/95 (110) Pulse Ox 90 90 89 91 07/12/21 07/12/21 07/12/21 07/12/21 11:30 11:33 11:45 11:45 B/P (MAP) 145/95 (112) Pulse Ox 90 91 92 FiO2 80 07/12/21 07/12/21 07/12/21 07/12/21 11:48 12:00 12:00 12:00 Temp 98.1 Pulse 105 Resp 39 B/P (MAP) 137/86 (103) Pulse Ox 92 93 O2 Delivery Bi-pap O2 Flow Rate 70.00 07/12/21 07/12/21 07/12/21 07/12/21 12:03 12:15 12:18 12:30 Pulse 104 103 104 104 Resp B/P (MAP) 136/76 (96) 140/95 (110) Pulse Ox 92 91 89 90 O2 Delivery S/T FiO2 80 07/12/21 07/12/21 07/12/21 07/12/21 12:30 12:33 12:45 13:00 Pulse 109 110 107 106 Resp B/P (MAP) 124/83 (97) Pulse Ox 89 90 86 88 07/12/21 07/12/21 07/12/21 07/12/21 13:00 13:03 13:15 13:18 Temp 99.0 Pulse 106 108 109 Resp B/P (MAP) 118/81 (93) 127/78 (94) Pulse Ox 88 87 89 07/12/21 07/12/21 07/12/21 07/12/21 13:30 13:33 13:45 13:48 Pulse 109 107 108 107 Resp B/P (MAP) 143/94 (110) 144/88 (106) Pulse Ox 90 88 89 92 07/12/21 07/12/21 07/12/21 07/12/21 14:00 14:00 14:03 14:15 Temp 98.7 Pulse 108 109 110 Resp B/P (MAP) 140/92 (108) Pulse Ox 88 90 94 07/12/21 07/12/21 07/12/21 07/12/21 14:18 14:30 14:33 15:00 Temp 99.1 Pulse 110 109 111 Resp 29 B/P (MAP) 136/91 (106) 120/84 (96) Pulse Ox 89 90 89 07/12/21 07/12/21 07/12/21 07/12/21 15:03 15:15 15:18 15:30 Pulse 112 111 112 111 Resp 30 34 37 B/P (MAP) 125/76 (92) 128/78 (95) Pulse Ox 91 87 87 91 07/12/21 07/12/21 07/12/21 07/12/21 15:33 15:45 15:46 15:48 Pulse 112 106 108 Resp 38 38 41 B/P (MAP) 120/71 (87) 143/94 (110) Pulse Ox 92 100 98 O2 Delivery Bi-pap O2 Flow Rate 90.00 07/12/21 07/12/21 07/12/21 07/12/21 16:00 16:00 16:03 16:15 Temp 99.0 Pulse 102 101 96 Resp 30 30 31 B/P (MAP) 129/82 (98) Pulse Ox 98 98 94 07/12/21 07/12/21 07/12/21 07/12/21 16:18 16:23 16:30 16:33 Pulse 95 94 93 93 Resp 30 28 32 29 B/P (MAP) 112/75 (87) 106/67 (80) Pulse Ox 87 94 91 91 O2 Delivery S/T FiO2 90 07/12/21 07/12/21 07/12/21 07/12/21 16:45 16:48 17:00 17:00 Temp 98.9 Pulse 92 92 91 Resp 30 140 64 B/P (MAP) 103/61 (75) Pulse Ox 68 89 86 07/12/21 07/12/21 07/12/21 07/12/21 17:03 17:15 17:18 17:30 Pulse 91 91 91 91 Resp 172 B/P (MAP) 108/63 (78) 105/63 (77) Pulse Ox 82 99 96 98 07/12/21 07/12/21 07/12/21 07/12/21 17:33 17:45 17:48 18:00 Temp 98.9 Pulse 90 90 90 B/P (MAP) 106/60 (75) 105/57 (73) Pulse Ox 95 97 95 07/12/21 07/12/21 07/12/21 07/12/21 18:00 18:03 18:15 18:18 Pulse 90 91 90 90 B/P (MAP) 100/62 (75) 105/63 (77) Pulse Ox 96 95 96 98 07/12/21 07/12/21 07/12/21 07/12/21 18:33 18:43 18:48 19:03 Pulse 90 90 90 91 Resp 158 34 27 B/P (MAP) 98/54 (69) 95/66 (76) 108/58 (75) 92/54 (67) Pulse Ox 95 100 100 98 07/12/21 07/12/21 07/12/21 07/12/21 19:18 19:32 20:00 20:02 Pulse 92 90 91 Resp 41 36 35 B/P (MAP) 93/53 (66) 87/54 (65) 84/51 (62) Pulse Ox 93 98 100 O2 Delivery Bi-pap O2 Flow Rate 70.00 07/12/21 07/12/21 07/12/21 07/12/21 20:17 20:32 20:47 21:02 Pulse 93 92 92 91 Resp 37 34 34 32 B/P (MAP) 89/54 (66) 87/49 (62) 83/51 (62) 88/53 (65) Pulse Ox 99 98 97 97 07/12/21 07/12/21 07/12/21 07/12/21 21:17 21:32 21:35 21:48 Pulse 90 89 89 89 Resp 33 29 30 29 B/P (MAP) 89/57 (68) 94/54 (67) 88/46 (60) Pulse Ox 98 96 98 97 O2 Delivery S/T FiO2 80 07/12/21 07/12/21 07/12/21 07/12/21 22:02 22:17 22:32 22:34 Pulse 89 90 89 90 Resp 17 B/P (MAP) 91/51 (64) 92/45 (61) 88/53 (65) Pulse Ox 92 94 95 98 O2 Delivery Bi-pap FiO2 80 07/12/21 07/12/21 07/12/21 07/12/21 22:47 23:02 23:17 23:32 Pulse 88 87 87 87 Resp 28 B/P (MAP) 87/52 (64) 92/53 (66) 86/50 (62) 89/50 (63) Pulse Ox 93 95 96 94 07/12/21 07/13/21 07/13/21 07/13/21 23:47 00:00 00:02 00:17 Pulse 87 88 86 Resp 27 B/P (MAP) 91/45 (60) 84/55 (65) 88/54 (65) Pulse Ox 96 97 95 O2 Delivery Bi-pap O2 Flow Rate 70.00 07/13/21 07/13/21 07/13/21 07/13/21 00:32 00:47 01:02 01:18 Pulse 86 86 86 88 Resp 29 26 28 30 B/P (MAP) 97/57 (70) 87/48 (61) 90/53 (65) 97/56 (70) Pulse Ox 88 93 94 95 07/13/21 07/13/21 07/13/21 07/13/21 01:28 01:32 01:47 02:02 Pulse 86 85 85 85 Resp 26 B/P (MAP) 98/58 (71) 100/54 (69) 92/56 (68) Pulse Ox 95 93 90 93 O2 Delivery S/T FiO2 70 07/13/21 07/13/21 07/13/21 07/13/21 02:17 02:32 02:47 03:02 Pulse 85 86 86 86 Resp 28 B/P (MAP) 98/58 (71) 89/50 (63) 93/56 (68) 97/55 (69) Pulse Ox 86 88 89 90 07/13/21 07/13/21 07/13/21 07/13/21 03:17 03:32 03:47 03:57 Pulse 86 86 87 87 Resp 24 42 B/P (MAP) 100/56 (71) 98/54 (69) 99/55 (70) 114/73 (87) Pulse Ox 88 89 91 90 07/13/21 07/13/21 07/13/21 07/13/21 04:00 04:03 04:18 04:32 Pulse 88 88 91 Resp 38 26 20 B/P (MAP) 127/58 (81) 115/74 (88) 151/74 (99) Pulse Ox 89 87 93 O2 Delivery Bi-pap O2 Flow Rate 70.00 07/13/21 07/13/21 07/13/21 07/13/21 04:48 05:02 05:07 05:17 Pulse 88 87 87 90 Resp 24 27 34 B/P (MAP) 111/71 (84) 111/72 (85) 107/72 (84) Pulse Ox 92 93 94 82 O2 Delivery S/T FiO2 80 07/13/21 07/13/21 07/13/21 07/13/21 05:32 05:48 06:04 06:17 Pulse 87 89 92 91 Resp 29 35 39 32 B/P (MAP) 119/80 (93) 124/52 (76) 113/74 (87) 124/84 (97) Pulse Ox 92 88 86 94 07/13/21 07/13/21 07/13/21 07/13/21 06:30 06:32 06:45 06:48 Temp 98.5 Pulse 89 89 89 89 Resp B/P (MAP) 126/86 (99) 118/78 (91) Pulse Ox 95 93 94 94 07/13/21 07/13/21 07/13/21 07/13/21 07:00 07:02 07:15 07:17 Pulse 89 88 89 88 Resp B/P (MAP) 117/75 (89) 111/78 (89) Pulse Ox 93 93 93 92 07/13/21 07/13/21 07/13/21 07/13/21 07:30 07:32 07:32 08:00 Temp 98.6 Pulse 89 90 Resp B/P (MAP) 117/70 (86) Pulse Ox 95 94 O2 Delivery Bi-pap O2 Flow Rate 70.00 07/13/21 07/13/21 07/13/21 07/13/21 08:50 08:50 09:00 09:25 Temp 98.9 Pulse 90 90 Resp 30 Pulse Ox 95 95 95 O2 Delivery S/T Bi-pap FiO2 80 80 75 07/13/21 07/13/21 07/13/21 07/13/21 10:00 10:17 10:30 10:32 Temp 98.5 Pulse 83 83 83 Resp B/P (MAP) 114/66 (82) 107/73 (84) Pulse Ox 93 94 94 07/13/21 07/13/21 07/13/21 07/13/21 10:45 10:47 10:50 11:00 Pulse 83 83 84 Resp B/P (MAP) 117/74 (88) Pulse Ox 95 95 95 96 FiO2 70 07/13/21 07/13/21 07/13/21 07/13/21 11:00 11:02 11:15 11:17 Temp 98.7 Pulse 84 84 84 Resp B/P (MAP) 120/77 (91) 117/77 (90) Pulse Ox 95 94 95 07/13/21 07/13/21 07/13/21 07/13/21 11:30 11:30 11:32 11:32 Pulse 84 84 84 84 Resp B/P (MAP) 113/76 (88) 113/76 (88) Pulse Ox 94 94 93 93 07/13/21 07/13/21 07/13/21 07/13/21 11:45 11:45 11:47 11:47 Pulse 84 84 84 84 Resp 24 B/P (MAP) 117/76 (90) 117/76 (90) Pulse Ox 94 94 94 94 07/13/21 07/13/21 07/13/21 07/13/21 12:00 12:00 12:00 12:00 Temp 98.9 98.9 Pulse 86 86 Resp Pulse Ox 96 96 07/13/21 07/13/21 07/13/21 07/13/21 12:00 12:02 12:02 12:15 Pulse 88 88 84 Resp 34 34 23 B/P (MAP) 115/70 (85) 115/70 (85) Pulse Ox 89 89 92 O2 Delivery Bi-pap O2 Flow Rate 70.00 07/13/21 07/13/21 07/13/21 07/13/21 12:15 12:17 12:17 12:30 Pulse 84 84 84 84 Resp 24 20 B/P (MAP) 117/84 (95) 117/84 (95) Pulse Ox 92 95 95 98 07/13/21 07/13/21 07/13/21 07/13/21 12:30 12:32 12:32 12:35 Pulse 84 84 84 84 Resp 28 B/P (MAP) 117/81 (93) 117/81 (93) Pulse Ox 98 94 94 96 FiO2 60 07/13/21 07/13/21 07/13/21 07/13/21 12:45 12:47 13:00 13:03 Pulse 86 87 86 86 Resp 24 B/P (MAP) 119/78 (92) 109/71 (84) Pulse Ox 97 95 96 96 07/13/21 07/13/21 07/13/21 07/13/21 13:15 13:17 13:30 13:32 Pulse 86 86 86 86 Resp B/P (MAP) 107/66 (80) 108/63 (78) Pulse Ox 96 97 97 97 07/13/21 07/13/21 07/13/21 07/13/21 13:45 13:47 14:00 14:17 Temp 98.7 Pulse 86 86 86 Resp 25 B/P (MAP) 108/68 (81) 113/68 (83) Pulse Ox 97 97 97 07/13/21 07/13/21 07/13/21 07/13/21 14:20 14:30 14:33 14:45 Pulse 74 86 88 86 Resp 20 B/P (MAP) 103/63 (76) Pulse Ox 97 99 98 97 O2 Delivery CPAP FiO2 60 07/13/21 07/13/21 07/13/21 07/13/21 14:48 15:00 15:02 15:15 Pulse 89 88 88 90 Resp B/P (MAP) 103/63 (76) 105/57 (73) Pulse Ox 88 96 97 96 07/13/21 07/13/21 07/13/21 07/13/21 15:17 15:30 15:32 15:45 Pulse 91 91 90 95 Resp 26 B/P (MAP) 103/63 (76) 111/65 (80) Pulse Ox 96 97 96 94 07/13/21 07/13/21 07/13/21 07/13/21 15:50 15:58 16:00 16:00 Temp 98.9 Pulse 99 91 Resp 32 24 B/P (MAP) 116/72 (87) Pulse Ox 82 89 O2 Delivery Bi-pap O2 Flow Rate 60.00 07/13/21 07/13/21 07/13/21 07/13/21 16:02 16:15 16:17 16:30 Pulse 91 92 101 93 Resp 42 23 B/P (MAP) 116/81 (93) 123/75 (91) Pulse Ox 87 89 88 90 07/13/21 07/13/21 07/13/21 07/13/21 16:32 16:37 16:45 16:47 Pulse 93 74 92 93 Resp 20 B/P (MAP) 118/71 (87) 110/63 (79) Pulse Ox 91 97 93 92 O2 Delivery CPAP FiO2 60 07/13/21 07/13/21 07/13/21 07/13/21 17:00 17:02 17:15 17:17 Pulse 92 93 94 93 Resp 21 B/P (MAP) 108/72 (84) 120/85 (97) Pulse Ox 95 94 91 94 07/13/21 07/13/21 07/13/21 07/13/21 17:30 17:32 17:45 17:47 Pulse 93 92 95 94 Resp 21 B/P (MAP) 115/75 (88) 120/85 (97) Pulse Ox 94 94 94 96 07/13/21 07/13/21 07/13/21 07/13/21 18:00 18:00 18:02 18:15 Temp 98.7 Pulse 95 94 94 Resp 19 B/P (MAP) 123/93 (103) Pulse Ox 90 90 94 07/13/21 07/13/21 07/13/21 07/13/21 18:17 18:32 18:47 19:02 Pulse 94 94 93 95 Resp 19 B/P (MAP) 113/79 (90) 123/73 (90) 115/82 (93) 120/76 (91) Pulse Ox 94 94 94 94 07/13/21 07/13/21 07/13/21 07/13/21 19:17 19:32 19:45 19:47 Temp 97.8 Pulse 97 100 104 Resp B/P (MAP) 129/94 (106) 130/93 (105) 141/101 (114) Pulse Ox 92 93 94 O2 Delivery C-Pap 07/13/21 07/13/21 07/13/21 07/13/21 20:03 20:17 20:18 20:32 Pulse 101 94 97 98 Resp B/P (MAP) 145/97 (113) 117/78 (91) 110/83 (92) Pulse Ox 92 94 94 96 FiO2 60 07/13/21 07/13/21 07/13/21 07/13/21 20:47 21:02 21:12 21:17 Pulse 96 98 98 98 Resp 28 B/P (MAP) 109/74 (86) 112/72 (85) 107/72 (84) Pulse Ox 96 96 94 95 O2 Delivery CPAP FiO2 60 07/13/21 07/13/21 07/13/21 07/13/21 21:32 21:47 22:02 22:17 Pulse 99 97 96 95 Resp 24 B/P (MAP) 115/83 (94) 113/81 (92) 112/69 (83) 110/68 (82) Pulse Ox 95 97 95 96 07/13/21 07/13/21 07/13/21 07/13/21 22:32 22:47 23:02 23:17 Pulse 93 Resp 23 B/P (MAP) 100/68 (79) 96/65 (75) 103/60 (74) 100/65 (77) Pulse Ox 97 97 97 97 07/13/21 07/13/21 07/14/21 07/14/21 23:32 23:47 00:02 00:17 Temp 99.1 Pulse 91 91 93 92 Resp 27 B/P (MAP) 102/64 (77) 103/67 (79) 99/60 (73) 95/61 (72) Pulse Ox 98 98 95 94 07/14/21 07/14/21 07/14/21 07/14/21 00:20 00:32 00:47 01:02 Pulse 89 90 89 Resp 27 36 B/P (MAP) 99/61 (74) 112/61 (78) 94/61 (72) Pulse Ox 96 98 91 O2 Delivery C-Pap 07/14/21 07/14/21 07/14/21 07/14/21 01:17 01:17 01:32 01:45 Pulse 87 83 83 84 Resp 21 18 18 20 B/P (MAP) 101/59 (73) 100/52 (68) Pulse Ox 91 93 93 94 O2 Delivery CPAP FiO2 60 07/14/21 07/14/21 07/14/21 07/14/21 01:47 02:00 02:02 02:15 Pulse 83 83 82 82 Resp 20 20 20 19 B/P (MAP) 96/60 (72) 101/60 (74) Pulse Ox 92 96 97 97 07/14/21 07/14/21 07/14/21 07/14/21 02:17 02:30 02:32 02:45 Pulse 82 80 80 80 Resp 21 20 19 19 B/P (MAP) 91/60 (70) 106/65 (79) Pulse Ox 96 95 94 97 07/14/21 07/14/21 07/14/21 07/14/21 02:47 03:00 03:02 03:15 Pulse 80 79 79 79 Resp 20 19 20 B/P (MAP) 105/59 (74) 111/66 (81) Pulse Ox 96 96 98 95 07/14/21 07/14/21 07/14/21 07/14/21 03:17 03:30 03:32 03:45 Pulse 79 79 79 79 Resp 19 20 78 19 B/P (MAP) 102/70 (81) 106/71 (83) Pulse Ox 98 97 97 98 07/14/21 07/14/21 07/14/21 07/14/21 03:47 04:02 04:17 04:32 Pulse 78 80 78 79 Resp 19 74 34 30 B/P (MAP) 111/70 (84) 110/73 (85) 109/72 (84) 110/79 (89) Pulse Ox 96 96 96 97 07/14/21 07/14/21 07/14/21 07/14/21 04:34 04:47 05:02 05:17 Pulse 78 79 78 Resp 36 38 19 B/P (MAP) 115/72 (86) 106/67 (80) 117/68 (84) Pulse Ox 97 97 97 O2 Delivery C-Pap 07/14/21 07/14/21 07/14/21 07/14/21 05:29 05:32 05:47 06:02 Pulse 79 78 78 79 Resp 22 19 19 19 B/P (MAP) 110/73 (85) 115/69 (84) 107/71 (83) Pulse Ox 96 97 96 97 O2 Delivery CPAP FiO2 60 07/14/21 07/14/21 07/14/21 07/14/21 06:17 06:32 06:47 08:02 Pulse 82 78 77 Resp 29 21 19 B/P (MAP) 112/68 (83) 105/72 (83) 108/69 (82) 111/67 (82) Pulse Ox 99 92 97 97 07/14/21 07/14/21 07/14/21 07/14/21 08:15 08:17 08:30 08:30 Pulse 78 77 78 Resp 19 19 16 B/P (MAP) 107/65 (79) Pulse Ox 98 97 97 O2 Delivery C-Pap 07/14/21 07/14/21 07/14/21 07/14/21 08:32 08:45 08:47 09:00 Pulse 78 78 77 77 Resp 23 23 18 18 B/P (MAP) 116/75 (89) 101/63 (76) Pulse Ox 97 94 93 97 07/14/21 07/14/21 07/14/21 07/14/21 09:02 09:15 09:17 09:30 Pulse 76 77 76 77 Resp 23 18 17 21 B/P (MAP) 106/68 (81) 102/63 (76) Pulse Ox 96 95 96 94 07/14/21 07/14/21 07/14/21 07/14/21 09:32 09:45 09:47 09:58 Pulse 77 78 76 81 Resp 21 B/P (MAP) 100/66 (77) 94/58 (70) Pulse Ox 94 92 97 97 FiO2 60 07/14/21 07/14/21 07/14/21 07/14/21 09:58 10:00 10:02 10:15 Pulse 81 76 76 76 Resp 19 17 B/P (MAP) 100/69 (79) Pulse Ox 96 98 100 96 O2 Delivery C-Pap FiO2 60 07/14/21 07/14/21 07/14/21 07/14/21 10:17 10:30 10:32 10:45 Pulse 76 75 76 75 Resp 17 18 17 16 B/P (MAP) 101/69 (80) 102/62 (75) Pulse Ox 100 98 97 98 07/14/21 07/14/21 07/14/21 07/14/21 10:47 11:00 11:02 11:15 Pulse 75 78 81 76 Resp 17 20 27 B/P (MAP) 106/64 (78) 99/59 (72) Pulse Ox 98 94 81 89 07/14/21 07/14/21 07/14/21 07/14/21 11:17 11:20 11:21 11:30 Pulse 76 81 76 Resp B/P (MAP) 103/74 (84) Pulse Ox 92 96 96 95 O2 Delivery C-Pap O2 Flow Rate 45.00 FiO2 100 07/14/21 07/14/21 07/14/21 07/14/21 11:32 11:45 11:47 12:00 Pulse 76 77 77 77 Resp B/P (MAP) 107/65 (79) 106/65 (79) Pulse Ox 97 97 97 95 07/14/21 07/14/21 07/14/21 07/14/21 12:02 12:13 12:15 12:17 Pulse 76 77 77 Resp 33 24 25 B/P (MAP) 105/76 (86) 111/73 (86) Pulse Ox 94 96 96 O2 Delivery Comfort Yuan O2 Flow Rate 100.00 07/14/21 07/14/21 07/14/21 07/14/21 12:30 12:33 12:48 13:17 Temp 97.7 Pulse 79 79 78 Resp 36 22 B/P (MAP) 94/59 (71) 112/80 (91) 124/81 (95) Pulse Ox 95 92 98 99 07/14/21 07/14/21 07/14/21 07/14/21 13:30 13:32 13:45 13:47 Pulse 80 78 78 78 Resp 25 23 25 27 B/P (MAP) 118/83 (95) 88/60 (69) Pulse Ox 97 98 98 98 07/14/21 07/14/21 07/14/21 07/14/21 14:00 14:02 14:15 14:17 Pulse 78 78 78 78 Resp 19 18 19 18 B/P (MAP) 106/71 (83) 103/65 (78) Pulse Ox 100 96 98 97 07/14/21 07/14/21 07/14/21 07/14/21 14:30 14:32 14:45 14:47 Pulse 77 77 78 79 Resp 17 17 19 19 B/P (MAP) 100/61 (74) 106/73 (84) Pulse Ox 96 96 96 97 07/14/21 07/14/21 07/14/21 07/14/21 15:00 15:04 15:15 15:17 Pulse 82 80 79 78 Resp 29 33 30 31 B/P (MAP) 101/59 (73) 108/48 (68) Pulse Ox 93 92 93 95 07/14/21 07/14/21 07/14/21 07/14/21 15:30 15:32 15:45 15:47 Pulse 79 79 78 78 Resp 84 28 24 29 B/P (MAP) 101/63 (76) 110/72 (85) Pulse Ox 96 95 96 96 07/14/21 07/14/21 07/14/21 07/14/21 16:00 16:02 16:07 16:15 Pulse 78 79 80 77 Resp 26 28 24 25 B/P (MAP) 103/68 (80) Pulse Ox 97 95 92 93 O2 Delivery Comfort Yuan O2 Flow Rate 30.00 FiO2 90 07/14/21 07/14/21 07/14/21 07/14/21 16:17 16:30 16:32 16:45 Pulse 77 77 79 77 Resp 23 18 20 20 B/P (MAP) 97/65 (76) 99/65 (76) Pulse Ox 96 95 95 94 07/14/21 07/14/21 07/14/21 07/14/21 16:47 16:47 16:55 17:00 Temp 97.7 Pulse 77 80 Resp 23 31 B/P (MAP) 96/61 (73) Pulse Ox 95 92 O2 Delivery Comfort Yuan O2 Flow Rate 90.00 07/14/21 07/14/21 07/14/21 07/14/21 17:03 17:15 17:17 17:30 Pulse 78 76 76 76 Resp 18 22 18 B/P (MAP) 93/55 (68) 104/65 (78) Pulse Ox 92 96 96 95 07/14/21 07/14/21 07/14/21 07/14/21 17:32 17:45 17:47 18:00 Pulse 76 76 76 78 Resp 20 18 18 32 B/P (MAP) 104/72 (83) 100/66 (77) Pulse Ox 96 96 96 89 07/14/21 07/14/21 07/14/21 07/14/21 18:02 18:32 18:47 19:02 Pulse 77 80 80 80 Resp 26 30 19 24 B/P (MAP) 100/63 (75) 139/64 (89) 99/59 (72) 102/68 (79) Pulse Ox 88 88 88 91 07/14/21 07/14/21 07/14/21 07/14/21 19:17 19:32 19:47 20:00 Temp 97.6 Pulse 75 79 76 Resp 22 23 25 B/P (MAP) 116/73 (87) 113/75 (88) 106/74 (85) Pulse Ox 93 96 92 O2 Delivery Comfort Yuan O2 Flow Rate 30.00 07/14/21 07/14/21 07/14/21 07/14/21 20:17 20:32 20:47 21:02 Pulse 77 77 77 78 Resp 25 18 B/P (MAP) 99/69 (79) 101/74 (83) 107/72 (84) 100/72 (81) Pulse Ox 91 93 96 94 07/14/21 07/14/21 07/14/21 07/14/21 21:17 21:32 21:34 21:47 Pulse 81 80 77 79 Resp 41 26 24 B/P (MAP) 100/66 (77) 112/66 (81) 105/63 (77) Pulse Ox 89 87 93 94 O2 Delivery Comfort Yuan O2 Flow Rate 30.00 FiO2 90 07/14/21 07/14/21 07/14/21 07/14/21 22:02 22:17 22:32 22:47 Pulse 80 79 85 82 Resp 22 20 19 B/P (MAP) 103/66 (78) 102/62 (75) 102/69 (80) 97/63 (74) Pulse Ox 94 95 94 94 07/14/21 07/14/21 07/14/21 07/14/21 23:02 23:17 23:32 23:47 Pulse 80 81 78 78 Resp 20 23 22 20 B/P (MAP) 99/64 (76) 105/68 (80) 98/72 (81) 103/63 (76) Pulse Ox 90 90 96 96 07/15/21 07/15/21 07/15/21 07/15/21 00:00 00:02 00:17 01:19 Temp 98.1 Pulse 82 82 81 Resp 33 29 28 B/P (MAP) 96/69 (78) 115/80 (92) 112/73 (86) Pulse Ox 91 88 92 O2 Delivery Comfort Yuan O2 Flow Rate 30.00 07/15/21 07/15/21 07/15/21 07/15/21 02:19 02:34 03:19 03:32 Pulse 81 78 78 Resp 29 22 19 B/P (MAP) 111/67 (82) 104/70 (81) Pulse Ox 90 90 89 O2 Delivery C-Pap FiO2 60 07/15/21 07/15/21 07/15/21 07/15/21 04:19 05:19 05:30 05:30 Temp 97.9 Pulse 76 74 74 74 Resp 19 20 21 B/P (MAP) 106/68 (81) 109/72 (84) Pulse Ox 88 90 90 91 FiO2 60 07/15/21 07/15/21 07/15/21 07/15/21 05:45 06:00 06:15 06:19 Pulse 75 74 73 74 Resp 18 19 18 B/P (MAP) 110/70 (83) Pulse Ox 90 89 89 89 07/15/21 07/15/21 07/15/21 07/15/21 06:30 06:45 07:00 07:15 Pulse 74 77 74 73 Resp Pulse Ox 90 84 92 89 07/15/21 07/15/21 07/15/21 07/15/21 07:19 07:30 07:30 07:31 Pulse 74 78 74 78 Resp B/P (MAP) 110/68 (82) Pulse Ox 89 91 93 91 O2 Delivery Comfort Yuan O2 Flow Rate 30.00 30.00 FiO2 90 90 07/15/21 07/15/21 07/15/21 07/15/21 07:32 07:33 07:45 08:00 Pulse 78 78 78 77 Resp Pulse Ox 91 91 86 94 07/15/21 07/15/21 07/15/21 07/15/21 08:00 08:15 08:20 08:30 Pulse 76 76 78 Resp 25 27 19 B/P (MAP) 111/63 (79) Pulse Ox 89 90 89 O2 Delivery Comfort Yuan O2 Flow Rate 30.00 07/15/21 07/15/21 07/15/21 07/15/21 08:45 09:00 09:15 09:19 Pulse 79 80 80 79 Resp 24 25 30 29 B/P (MAP) 99/55 (70) Pulse Ox 91 94 95 96 07/15/21 07/15/21 07/15/21 07/15/21 09:30 09:45 10:00 10:15 Pulse 83 83 82 82 Resp 29 31 30 Pulse Ox 95 95 95 92 07/15/21 07/15/21 07/15/21 07/15/21 10:19 10:30 10:45 11:00 Pulse 82 83 83 82 Resp 28 29 24 23 B/P (MAP) 113/66 (82) Pulse Ox 93 87 92 93 07/15/21 07/15/21 07/15/2107/15/22 11:15 11:19 11:30 11:45 Pulse 85 84 82 82 Resp 27 B/P (MAP) 117/70 (86) Pulse Ox 89 91 91 92 07/15/21 07/15/21 07/15/21 07/15/21 12:00 12:15 12:19 12:30 Pulse 84 83 83 82 Resp 24 33 B/P (MAP) 121/68 (85) Pulse Ox 90 91 92 88 07/15/21 07/15/21 07/15/21 07/15/21 12:38 12:45 13:00 13:15 Pulse 90 88 92 Resp 55 29 31 Pulse Ox 90 91 78 O2 Delivery Comfort Yuan O2 Flow Rate 30.00 07/15/21 07/15/21 07/15/21 07/15/21 13:19 13:23 13:24 13:30 Pulse 92 84 84 92 Resp 22 B/P (MAP) 148/76 (100) Pulse Ox 87 94 94 90 O2 Delivery Comfort Yuan O2 Flow Rate 30.00 FiO2 90 07/15/21 07/15/21 07/15/21 07/15/21 13:45 14:00 14:15 14:20 Pulse 87 87 89 89 Resp 22 B/P (MAP) 103/59 (74) Pulse Ox 92 94 91 94 07/15/21 07/15/21 07/15/21 07/15/21 14:30 14:45 15:00 15:15 Pulse 90 91 90 91 Resp 29 33 Pulse Ox 89 94 82 89 07/15/21 07/15/21 07/15/21 07/15/21 15:19 15:30 15:45 16:00 Pulse 89 90 89 90 Resp 29 29 26 36 B/P (MAP) 111/66 (81) Pulse Ox 89 95 98 89 07/15/21 07/15/21 07/15/21 07/15/21 16:11 16:12 16:13 16:15 Pulse 82 82 82 91 Resp 22 42 Pulse Ox 94 94 94 94 O2 Delivery Comfort Yuan O2 Flow Rate 30.00 FiO2 90 60 07/15/21 07/15/21 07/15/21 07/15/21 16:19 16:30 16:45 17:00 Pulse 93 91 92 Resp 25 33 B/P (MAP) 130/65 (86) Pulse Ox 93 92 90 O2 Delivery Comfort Yuan O2 Flow Rate 25.00 07/15/21 07/15/21 07/15/21 07/15/21 17:15 17:19 17:30 17:45 Pulse 96 92 90 93 Resp 24 28 B/P (MAP) 130/65 (86) Pulse Ox 94 96 94 90 07/15/21 07/15/21 07/15/21 07/15/21 18:00 20:00 20:45 21:00 Pulse 96 93 99 Resp 28 31 B/P (MAP) 136/85 (102) Pulse Ox 90 100 95 O2 Delivery Comfort Yuan O2 Flow Rate 25.00 07/15/21 07/15/21 07/15/21 07/15/21 21:15 21:19 21:30 21:45 Pulse 96 95 96 94 Resp 27 32 31 B/P (MAP) 121/79 (93) Pulse Ox 98 97 96 98 07/15/21 07/15/21 07/15/21 07/15/21 22:00 22:15 22:19 22:30 Pulse 95 92 91 90 Resp 31 19 26 23 B/P (MAP) 112/69 (83) Pulse Ox 98 97 97 94 07/15/21 07/15/21 07/15/21 07/15/21 22:45 23:00 23:15 23:19 Pulse 92 93 89 91 Resp 25 27 B/P (MAP) 98/57 (71) Pulse Ox 95 91 96 95 07/15/21 07/15/21 07/15/21 07/16/21 23:30 23:45 23:58 00:00 Pulse 91 91 96 Resp 30 37 28 Pulse Ox 97 97 90 O2 Delivery Comfort Yuan Comfort Yuan O2 Flow Rate 25.00 25.00 FiO2 80 07/16/21 07/16/21 07/16/21 07/16/21 00:00 00:15 00:19 02:45 Pulse 90 86 85 84 Resp 25 27 24 B/P (MAP) 122/73 (89) Pulse Ox 95 95 97 93 07/16/21 07/16/21 07/16/21 07/16/21 03:00 03:15 03:19 03:30 Pulse 84 86 89 85 Resp 24 28 29 16 B/P (MAP) 99/72 (81) Pulse Ox 96 94 87 85 07/16/21 07/16/21 07/16/21 07/16/21 03:45 04:00 04:00 04:15 Pulse 84 86 85 Resp 32 29 26 Pulse Ox 92 92 96 O2 Delivery Comfort Yuan O2 Flow Rate 25.00 07/16/21 07/16/21 07/16/21 07/16/21 04:19 04:30 04:45 05:00 Pulse 85 82 81 84 Resp 21 28 B/P (MAP) 130/85 (100) Pulse Ox 95 95 94 94 07/16/21 07/16/21 07/16/21 07/16/21 05:15 05:19 05:30 05:45 Pulse 84 82 86 83 Resp 27 28 26 B/P (MAP) 120/77 (91) Pulse Ox 89 91 95 94 07/16/21 07/16/21 07/16/21 07/16/21 06:00 06:15 06:19 06:30 Pulse 84 86 88 86 Resp 27 14 37 26 B/P (MAP) 122/77 (92) Pulse Ox 92 92 94 94 07/16/21 07/16/21 07/16/21 07/16/21 06:45 07:00 07:15 07:19 Pulse 86 88 86 86 Resp 25 23 35 B/P (MAP) 134/71 (92) Pulse Ox 87 87 94 94 07/16/21 07/16/21 07/16/21 07/16/21 07:30 07:45 08:00 08:00 Pulse 87 87 87 Resp 23 20 30 Pulse Ox 91 91 88 O2 Delivery Comfort Yuan O2 Flow Rate 25.00 07/16/21 07/16/21 07/16/21 07/16/21 08:15 08:19 08:30 08:45 Temp 97.9 Pulse 90 87 88 88 Resp 36 29 27 35 B/P (MAP) 135/81 (99) Pulse Ox 87 89 91 88 07/16/21 07/16/21 07/16/21 07/16/21 09:00 09:15 09:18 09:18 Pulse 87 91 88 88 Resp 30 26 34 34 Pulse Ox 94 86 88 88 O2 Delivery Comfort Yuan Comfort Yuan O2 Flow Rate 25.00 25.00 FiO2 80 80 07/16/21 07/16/21 07/16/21/17/22 09:18 09:19 09:20 09:30 Pulse 88 91 88 90 Resp 34 34 34 29 B/P (MAP) 132/71 (91) Pulse Ox 88 90 88 83 O2 Delivery CPAP 07/16/21 07/16/21 07/16/21 07/16/21 09:45 10:00 10:15 10:19 Pulse 94 93 94 94 Resp 40 26 27 25 B/P (MAP) 123/63 (83) Pulse Ox 96 85 07/16/21 07/16/21 07/16/21 07/16/21 10:30 10:45 11:00 11:15 Pulse 92 94 91 93 Resp 40 40 30 34 Pulse Ox 91 07/16/21 07/16/21 07/16/21 07/16/21 11:19 11:30 11:45 12:00 Pulse 86 86 88 87 Resp 29 31 23 37 B/P (MAP) 123/61 (81) Pulse Ox 91 94 95 95 07/16/21 07/16/21 07/16/21 07/16/21 12:00 12:15 12:19 12:30 Temp 98.0 Pulse 88 89 90 Resp 32 28 29 B/P (MAP) 124/70 (88) Pulse Ox 92 89 95 O2 Delivery Comfort Yuan O2 Flow Rate 25.00 07/16/21 07/16/21 07/16/21 07/16/21 12:45 13:00 13:15 13:19 Pulse 91 91 90 90 Resp 28 29 30 31 B/P (MAP) 121/63 (82) Pulse Ox 96 93 96 94 07/16/21 07/16/21 07/16/21 07/16/21 13:20 13:30 13:45 14:00 Pulse 90 91 93 92 Resp 31 31 34 30 Pulse Ox 94 95 89 94 O2 Delivery Comfort Yuan O2 Flow Rate 30.00 FiO2 100 07/16/21 07/16/21 07/16/21 07/16/21 14:15 14:19 14:30 14:45 Pulse 89 90 87 91 Resp 31 34 31 32 B/P (MAP) 129/70 (89) Pulse Ox 95 92 96 91 07/16/21 07/16/21 07/16/21 07/16/21 15:00 15:15 16:01 16:13 Pulse 92 94 92 Resp 30 34 30 Pulse Ox 94 92 91 O2 Delivery Comfort Yuan O2 Flow Rate 25.00 07/16/21 16:31 Pulse 89 Resp 32 Pulse Ox 91 Intake and Output 07/16/21 06:00 Intake Total 1500 ml Output Total 1300 ml Balance 200 ml VTE VTE Risk Score VTE Risk: Score 0-1 = Low Risk (Aggressive mobilization; early ambulation; no VTE prophylaxis required) Score 2: Moderate Risk (Intermittent/Pneumatic Compression Device OR Lovenox/Heparin/Coumadin) Score 3-4: High Risk (Intermittent/Pneumatic Compression Device AND Lovenox/Heparin/Coumadin) Score > or =5: Highest Risk (Intermittent/Pneumatic Compression Device AND Lovenox/Heparin/Coumadin) Antico:Hep/LMWH/Coum/Xarelto: Yes VTE Antico:Hep/LMWH/Coum/Xarelto: Yes Assessment/Plan Assessment/Plan Assessment/Plan 41 yo Male nonvaccinated patient with COVID-19 infection and DKA initially placed on BIPAP; remdesivir/decadron started self proning insulin qtt for DKA protocol CTa 07/10: multiple PE with saddle embolus and large filling defects in RLL; RUL and small defects throughout LLL pulm artery; diffuse multifocal infiltrates and ground-glass opacities bilaterally therapeutic Lovenox dosing started oxygen requirements trending down HFNC trialed 07/14 & 07/15 and tolerating with NRB over coughing fit this am Tessalon perles given patient overall feeling a bit better PMHx includes but is no limited to: DM, obesity Chart and additional data reviewed Na 127 (prior 124) Cr 0.7 glucose 350/325/373 lantus adjusted with most recent glucose in 200s patient with COVID infection hypoxemic resp failure remdesivir/decadron with some improvement in supplemental oxygen requirement 1. Pulm on HFNC with NRB cont to encourage lateral/self proning positioning Tessalon for coughing cont steroids multiple PE on lovenox therapeutic dosing ongoing 2. Endocrine presented in DKA resolved hyperglycemia steroids exacerbating lantus dosing (units) increased today and getting BID dosing monitor closely may require further adjustment DVT and GI prophylaxis in place d/w patient/bedside provider/RT Tele-critical care providers remain available for assistance at any time Patient seen through remote audiovisual assessment through HIPPA compliant technology Cumulative non-procedural critical care time spent in directed patient 60 min LANDEN JOE DO Jul 16, 2021 16:51
[2021-07-17] VITALS (18 sets, daily range): BP systolic 47–186; BP diastolic 24–99
[2021-07-17] MEDS: LANTUS SQ SCH
[2021-07-17] MEDS: MORPHINE SULFATE IV PRN (03:02)
--- NOTE | 2021-07-17 03:04 | NUR ---
Pt oxygen saturation in low 80's. pt stated it was because he was coughing. c/o pain right shoulder -PRN morphine given. RT notified of pt sat level as pt is on comfort flow 40L 100% with 15L non rebreather. will continue to monitor
[2021-07-17] MEDS: ROBITUSSIN DM PO PRN (03:08)
--- NOTE | 2021-07-17 03:20 | NUR ---
RT at bedside. attempted to place bipap/cpap. pt started to desaturate to the high 70's and c/o right chest pain/pressure radiating to the right posterior chest. bipap removed and pt was placed back on comfort flow 40L/100% with 15L NR. 0345 Dr. Van notifed of pt status. new order for chest xray @ 0700. will continue to monitor
--- NOTE | 2021-07-17 03:54 | NUR ---
[address] patient back on cpap. RR increased to 30s, sats were 78%. placed on 100 FIO2 AND SATS STILL REMAINED IN 70S WITH PATIENT COMPLAINING OF RT CHEST PAIN. i TRIED BIPAP AND STILL COULD NOT GET SATS OUT OF 70S. PLACED PT BACK ON CF 35L/M AND 100% FIO2 WITH NRB AND SATS ARE 88*90%. RELAYED EVERYTHING TO MERRY RN WHO THEN CALLED PHYSICIAN. PT IS IN NO DISTRESS AT THIS TIME. RR 25. SEEMS TO TOLERATE THE CF AND HICON BETTER THAN THE CPAP AT THIS TIME.
[2021-07-17 05:01] LABS: LYMPHOCYTES # 0.78 10^3/uL1 (1.0-4.8); LYMPHOCYTES % 3.4 % (24.0-44.0); MEAN CORP HGB 28.1 pg (26-34); MONOCYTES # 3.1 10^3/uL (0.3-0.8); MONOCYTES % 13.3 % (5.0-12.0); NEUTROPHIL # 19.3 10^3/uL (1.8-7.7); NEUTROPHILS % 83.3 % (41.0-85.0); PLATELET COUNT 318 10^3/uL (150-400); RED CELL DISTRIBUTION WIDTH 13.1 % (11.5-14.5)
[2021-07-17 05:18] LABS: CARBON DIOXIDE 25.1 mmol/L (20.0-32)
--- NOTE | 2021-07-17 06:50 | PRM.PN ---
Subjective Subjective Date: Jul 16, 2021 Time: 11:11 Subjective Patient seen date of service July 16, 2021 I was having difficulty accessing the electronic medical record which did not allow me to complete the progress note on date of service when patient was seen. Multidisciplinary rounds conducted with ICU TeleMed RT, and ICU nurse Patient states he is feeling a little worse today than yesterday cough is bothering him has been taking Tessalon we will add guaifenesin. Using comfort flow and nonrebreather on top when needed VTE VTE Risk Score VTE Risk: Score 0-1 = Low Risk (Aggressive mobilization; early ambulation; no VTE prophylaxis required) Score 2: Moderate Risk (Intermittent/Pneumatic Compression Device OR Lovenox/Heparin/Coumadin) Score 3-4: High Risk (Intermittent/Pneumatic Compression Device AND Lovenox/Heparin/Coumadin) Score > or =5: Highest Risk (Intermittent/Pneumatic Compression Device AND Lovenox/Heparin/Coumadin) Antico:Hep/LMWH/Coum/Xarelto: Yes Review of Systems Constitutional: No: Fever, Chills, Sweats, Weakness, Malaise, Other Eyes: No: Pain, Vision change, Conjunctivae inflammation, Eyelid inflammation, Other, Redness ENT: No: Ear pain, Ear discharge, Nose pain, Nose discharge, Nose congestion, Mouth pain, Mouth swelling, Throat pain, Throat swelling, Other Respiratory: Cough, Shortness of breath, SOB with excertion, Pleuritic Pain Cardiovascular: Chest Pain; No: Palpitations, Orthopnea, Paroxysmal Noc. Dyspnea, Edema, Lt Headedness, Other Gastrointestinal: No: Nausea, Vomiting, Abdominal Pain, Diarrhea, Constipation, Melena, Hematochezia, Other Genitourinary: No Dysuria, No Frequency, No Incontinence, No Hematuria, No Retention, No Other Musculoskeletal: No: other, neck pain, shoulder pain, arm pain, back pain, hand pain, leg pain, foot pain Skin: No: Rash, Lesions, Jaundice, Bruising, Other Neurological: No: Weakness, Numbness, Incoordination, Change in speech, Confusion, Seizures, Other Allergies: Coded Allergies: No Known Drug Allergies (Verified Allergy, Unknown, 07/10/21) Objective General: Alert, Oriented X3, Other (On comfort flow With nonrebreather) HEENT: Atraumatic, PERRLA Neck: Supple, No JVD, No thyromegaly Lungs: Other (Decreased left lower lung sound) Heart: Regular rate, Normal S1, Normal S2 Abdomen: Normal bowel sounds, Soft, No tenderness Extremities: No clubbing, No cyanosis Skin: No rashes, No breakdown, No significant lesion Neuro: Normal speech, Strength at 5/5 X4 ext Psych/Mental Status: Mood NL All Results(Lab/Rad) Laboratory Tests Test 07/09/21 22:20 07/09/21 23:45 07/10/21 00:05 07/10/21 03:25 White Blood Count 14.5 10^3/uL Red Blood Count 4.62 10^6/uL Hemoglobin 12.8 g/dL Hematocrit 40.0 % Mean Corpuscular Volume 86.6 fL Mean Corpuscular Hemoglobin 27.7 pg Mean Corpuscular Hemoglobin Concent 32.0 g/dL Red Cell Distribution Width 13.3 % Platelet Count 148 10^3/uL Mean Platelet Volume 10.4 fL Neutrophils (%) (Auto) 85.7 % Lymphocytes (%) (Auto) 4.4 % Monocytes (%) (Auto) 7.4 % Neutrophils # (Auto) 12.4 10^3/uL Lymphocytes # (Auto) 0.63 10^3/uL1 Monocytes # (Auto) 1.1 10^3/uL Absolute Immature Granulocyte (auto 0.35 10^3 u/L Absolute Eosinophils (auto) 0.0 10^3/uL Immature Granulocytes % 2.40 % Eosinophils % 0.0 % Basophils % 0.1 % Basophils # 0.0 10^3/uL Sodium Level 137 mmol/L Potassium Level 4.0 mmol/L Chloride Level 100.0 mmol/L Carbon Dioxide Level 12.0 mmol/L Anion Gap 29.0 Blood Urea Nitrogen 22 mg/dL Creatinine 0.98 mg/dL Estimated GFR () 102.0 Est GFR (CKD-EPI)(Non-Afr Nepalese) 84.3 BUN/Creatinine Ratio 22.0 Glucose Level 422 mg/dL Calcium Level 7.0 mg/dL Phosphorus Level 3.2 mg/dL Magnesium Level 1.9 mg/dL Total Bilirubin 0.6 mg/dL Aspartate Amino Transf (AST/SGOT) 22 U/L Alanine Aminotransferase (ALT/SGPT) 16 U/L Alkaline Phosphatase 183 U/L Total Protein 5.3 g/dL Albumin 1.8 g/dL Globulin 3.5 Albumin/Globulin Ratio 0.514 Acetone, Semi-Quantitative LARGE Lactic Acid Level 2.5 mmol/L Blood Gas Sample Site LR Blood Gas pH 7.202 Blood Gas PCO2 29.5 mmHg Blood Gas PO2 78.0 mmHg Blood Gas HCO3 11.3 mmol/L Blood Gas Base Excess -15.2 mmol/L Filiberto Test POSITIVE Arterial Blood Oxygen Saturation 93 % Deoxyhemoglobin 6.9 % Carboxyhemoglobin 0.8 % Methemoglobin 0.4 % Total Hemoglobin 15.1 % Total Oxygen Concentration 19.5 % Oxygen Delivery Method (LAB) BIPAP ST 16/[address] Blood Gas Vent Rate 25 FiO2 100 % Total Carbon Dioxide 12.2 mmol/L Lactic Acid Followup at 2 Hours 1.8 mmol/L Test 07/10/21 04:16 07/10/21 04:46 07/10/21 05:33 07/10/21 07:07 White Blood Count 14.8 10^3/uL Red Blood Count 4.66 10^6/uL Hemoglobin 13.5 g/dL Hematocrit 39.0 % Mean Corpuscular Volume 83.7 fL Mean Corpuscular Hemoglobin 29.0 pg Mean Corpuscular Hemoglobin Concent 34.6 g/dL Red Cell Distribution Width 13.2 % Platelet Count 149 10^3/uL Mean Platelet Volume 10.8 fL Neutrophils (%) (Auto) 86.3 % Lymphocytes (%) (Auto) 5.3 % Monocytes (%) (Auto) 8.3 % Neutrophils # (Auto) 12.8 10^3/uL Lymphocytes # (Auto) 0.78 10^3/uL1 Monocytes # (Auto) 1.2 10^3/uL Absolute Immature Granulocyte (auto 0.31 10^3 u/L Absolute Eosinophils (auto) 0.0 10^3/uL Immature Granulocytes % 2.10 % Eosinophils % 0.0 % Basophils % 0.1 % Basophils # 0.0 10^3/uL Sodium Level 132 mmol/L Potassium Level 3.9 mmol/L Chloride Level 97.0 mmol/L Carbon Dioxide Level 16.6 mmol/L Anion Gap 22.3 Blood Urea Nitrogen 24 mg/dL Creatinine 1.13 mg/dL Estimated GFR () 86.5 Est GFR (CKD-EPI)(Non-Afr Nepalese) 71.5 BUN/Creatinine Ratio 21.0 Glucose Level 418 mg/dL Calcium Level 7.9 mg/dL Total Bilirubin 0.5 mg/dL Aspartate Amino Transf (AST/SGOT) 31 U/L Alanine Aminotransferase (ALT/SGPT) 21 U/L Alkaline Phosphatase 213 U/L Total Protein 6.0 g/dL Albumin 1.9 g/dL Globulin 4.1 Albumin/Globulin Ratio 0.463 Bedside Glucose 378 381 328 Test 07/10/21 08:13 07/10/21 08:17 07/10/21 09:12 Sodium Level 134 mmol/L Potassium Level 3.7 mmol/L Chloride Level 99.0 mmol/L Carbon Dioxide Level 22.8 mmol/L Glucose Level 340 mg/dL Blood Urea Nitrogen 23 mg/dL Creatinine 1.03 mg/dL Calcium Level 8.0 mg/dL Anion Gap 15.9 Estimated GFR () 96.3 Est GFR (CKD-EPI)(Non-Afr Nepalese) 79.6 BUN/Creatinine Ratio 22.0 Bedside Glucose 270 332 Current Medications Medications (Trade) Dose Ordered Sig/Robby Route PRN Reason Start Time Stop Time Status Last Admin Dose Admin Ondansetron HCl (Zofran) 4 mg STK-MED ONCE .ROUTE 07/09/21 18:30 07/09/21 18:31 DC Ondansetron HCl (Zofran) 4 mg Q6HR PRN IV NAUSEA / VOMITING 07/09/21 19:00 08/08/21 18:59 07/09/21 21:20 Azithromycin 500 mg/Sodium Chloride 250 ml @ 175 mls/hr Q24HRS IV 07/09/21 19:00 08/08/21 18:59 07/09/21 19:00 Albuterol/ Ipratropium (Duo 0.5-3(2.5) Mg/3 ml) 3 ml RTQ4 IH 07/09/21 21:00 08/08/21 20:59 07/10/21 08:48 Morphine Sulfate (Morphine Sulfate) 1 mg Q6 PRN IV PAIN 4 - 6 07/09/21 19:00 08/08/21 18:59 Morphine Sulfate (Morphine Sulfate) 2 mg Q6 PRN IV PAIN 7 - 10 07/09/21 20:00 08/08/21 19:59 07/09/21 21:20 Sodium Chloride 250 ml @ ud STK-MED ONCE .ROUTE 07/09/21 20:52 07/09/21 20:52 DC Metoprolol Tartrate (Lopresser) 5 mg STK-MED ONCE .ROUTE 07/09/21 21:41 07/09/21 21:42 DC Metoprolol Tartrate (Lopresser) 5 mg STAT STAT IVP 07/09/21 21:43 07/09/21 22:00 DC 07/09/21 21:43 Insulin Human Lispro (Humalog) 0-140 0 Units 141-200... ACHS SQ 07/10/21 07:30 08/09/21 07:29 Hold Dextrose (Dextrose 50%-Water Syringe) 25 ml STAT PRN IV hypoglycemia 07/09/21 22:00 08/08/21 21:59 Enoxaparin Sodium (Lovenox) 40 mg Q24HRS SQ 07/09/21 22:00 08/08/21 21:59 07/09/21 22:00 Hydralazine HCl (Apresoline) 10 mg Q6HR PRN IV HYPERTENSION 07/09/21 22:00 08/08/21 21:59 Remdesivir 200 mg/ Sodium Chloride 140 ml @ 120.69 mls/ hr OT STAT IV 07/09/21 21:37 07/10/21 08:10 DC Remdesivir 100 mg/ Sodium Chloride 120 ml @ 111.111 mls/hr Q24HRS IV 07/10/21 22:00 07/10/21 08:22 DC Lorazepam (Ativan) 1 mg Q4HR PRN IM ANXIETY 07/09/21 22:00 08/08/21 21:59 07/09/21 23:50 Insulin Human Lispro (Humalog) 18 unit OT ONCE SQ 07/09/21 23:30 07/09/21 23:31 DC 07/09/21 23:30 Ondansetron HCl (Zofran) 4 mg Q4H PRN IV NAUSEA / VOMITING 07/09/21 23:30 08/08/21 23:29 Insulin Human Regular 100 unit/ Sodium Chloride 100 ml @ 5 mls/hr IV 07/09/21 23:30 07/10/21 01:10 DC Dextrose (Dextrose 50%-Water Syringe) 25 ml STAT PRN IV HYPOGLYCEMIA 07/09/21 23:30 08/08/21 23:29 Sodium Chloride 100 ml @ ud STK-MED ONCE IV 07/09/21 23:34 07/09/21 23:35 DC Insulin Human Regular (Humulin R) 1 unit STK-MED ONCE .ROUTE 07/09/21 23:35 07/09/21 23:35 DC Sodium Chloride 1,000 ml @ ud STK-MED ONCE .ROUTE 07/09/21 23:55 07/09/21 23:56 DC Insulin Human Regular 100 unit/ Sodium Chloride 100 ml @ 0 mls/hr TITRATE IV 07/10/21 01:30 08/09/21 01:29 07/10/21 00:02 Remdesivir 200 mg/ Sodium Chloride 140 ml @ 120.69 mls/ hr OT ONCE IV 07/10/21 09:00 07/10/21 10:09 07/10/21 09:00 Remdesivir 100 mg/ Sodium Chloride 120 ml @ 111.111 mls/hr Q24HRS IV 07/11/21 09:00 07/14/21 10:05 Sodium Chloride 100 ml @ ud STK-MED ONCE IV 07/10/21 09:37 07/10/21 09:37 DC Course Sepsis Screening Results: Posi: POSITIVE Sepsis Qualifier/Stage: SEVERE SEPSIS RISK Duration or Total Time Spent w: 60 mins Vitals & review Data Vital Sign - Last 24 Hours 07/10/21 07/10/21 07/10/21 07/10/21 08:00 08:49 08:50 08:51 Pulse 103 103 103 Resp 31 31 31 Pulse Ox 93 93 93 O2 Delivery Bi-pap Bi-pap O2 Flow Rate 100.00 FiO2 100 100 07/10/21 07/10/21 08:52 08:53 Pulse 108 Resp 28 Pulse Ox 94 O2 Flow Rate 45.00 FiO2 100 Intake and Output 07/10/21 07:00 Intake Total 1000 ml Output Total 2100 ml Balance -1100 ml Laboratory Tests Test 07/09/21 00:54 07/09/21 22:20 07/09/21 23:45 07/10/21 00:05 Urine Collection Type CCMS Urine Color YELLOW Urine Appearance TURBID Urine Bilirubin 1+ Urine Ketones 4+ Urine Specific Spurger 1.025 Urine pH 5.5 Urine Protein 2+ Urine Urobilinogen 0.2 E.U./dL Urine Nitrate NEGATIVE Urine Leukocyte Esterase NEGATIVE Urine Glucose (Auto)(UA) 500 mg/dL Urine Blood 2+ Urine RBC TooNumerousToCount RBC/HPF Urine WBC NONE SEEN WBC/HPF Urine Squamous Epithelial Cells FEW Urine Bacteria FEW White Blood Count 14.5 10^3/uL Red Blood Count 4.62 10^6/uL Hemoglobin 12.8 g/dL Hematocrit 40.0 % Mean Corpuscular Volume 86.6 fL Mean Corpuscular Hemoglobin 27.7 pg Mean Corpuscular Hemoglobin Concent 32.0 g/dL Red Cell Distribution Width 13.3 % Platelet Count 148 10^3/uL Mean Platelet Volume 10.4 fL Neutrophils (%) (Auto) 85.7 % Lymphocytes (%) (Auto) 4.4 % Monocytes (%) (Auto) 7.4 % Neutrophils # (Auto) 12.4 10^3/uL Lymphocytes # (Auto) 0.63 10^3/uL1 Monocytes # (Auto) 1.1 10^3/uL Absolute Immature Granulocyte (auto 0.35 10^3 u/L Absolute Eosinophils (auto) 0.0 10^3/uL Immature Granulocytes % 2.40 % Eosinophils % 0.0 % Basophils % 0.1 % Basophils # 0.0 10^3/uL Sodium Level 137 mmol/L Potassium Level 4.0 mmol/L Chloride Level 100.0 mmol/L Carbon Dioxide Level 12.0 mmol/L Anion Gap 29.0 Blood Urea Nitrogen 22 mg/dL Creatinine 0.98 mg/dL Estimated GFR () 102.0 Est GFR (CKD-EPI)(Non-Afr Nepalese) 84.3 BUN/Creatinine Ratio 22.0 Glucose Level 422 mg/dL Calcium Level 7.0 mg/dL Phosphorus Level 3.2 mg/dL Magnesium Level 1.9 mg/dL Total Bilirubin 0.6 mg/dL Aspartate Amino Transf (AST/SGOT) 22 U/L Alanine Aminotransferase (ALT/SGPT) 16 U/L Alkaline Phosphatase 183 U/L Total Protein 5.3 g/dL Albumin 1.8 g/dL Globulin 3.5 Albumin/Globulin Ratio 0.514 Acetone, Semi-Quantitative LARGE Lactic Acid Level 2.5 mmol/L Blood Gas Sample Site LR Blood Gas pH 7.202 Blood Gas PCO2 29.5 mmHg Blood Gas PO2 78.0 mmHg Blood Gas HCO3 11.3 mmol/L Blood Gas Base Excess -15.2 mmol/L Filiberto Test POSITIVE Arterial Blood Oxygen Saturation 93 % Deoxyhemoglobin 6.9 % Carboxyhemoglobin 0.8 % Methemoglobin 0.4 % Total Hemoglobin 15.1 % Total Oxygen Concentration 19.5 % Oxygen Delivery Method (LAB) BIPAP ST 16/[address] Blood Gas Vent Rate 25 FiO2 100 % Total Carbon Dioxide 12.2 mmol/L Test 07/10/21 03:25 07/10/21 04:16 07/10/21 04:46 07/10/21 05:33 Lactic Acid Followup at 2 Hours 1.8 mmol/L White Blood Count 14.8 10^3/uL Red Blood Count 4.66 10^6/uL Hemoglobin 13.5 g/dL Hematocrit 39.0 % Mean Corpuscular Volume 83.7 fL Mean Corpuscular Hemoglobin 29.0 pg Mean Corpuscular Hemoglobin Concent 34.6 g/dL Red Cell Distribution Width 13.2 % Platelet Count 149 10^3/uL Mean Platelet Volume 10.8 fL Neutrophils (%) (Auto) 86.3 % Lymphocytes (%) (Auto) 5.3 % Monocytes (%) (Auto) 8.3 % Neutrophils # (Auto) 12.8 10^3/uL Lymphocytes # (Auto) 0.78 10^3/uL1 Monocytes # (Auto) 1.2 10^3/uL Absolute Immature Granulocyte (auto 0.31 10^3 u/L Absolute Eosinophils (auto) 0.0 10^3/uL Immature Granulocytes % 2.10 % Eosinophils % 0.0 % Basophils % 0.1 % Basophils # 0.0 10^3/uL Sodium Level 132 mmol/L Potassium Level 3.9 mmol/L Chloride Level 97.0 mmol/L Carbon Dioxide Level 16.6 mmol/L Anion Gap 22.3 Blood Urea Nitrogen 24 mg/dL Creatinine 1.13 mg/dL Estimated GFR () 86.5 Est GFR (CKD-EPI)(Non-Afr Nepalese) 71.5 BUN/Creatinine Ratio 21.0 Glucose Level 418 mg/dL Calcium Level 7.9 mg/dL Total Bilirubin 0.5 mg/dL Aspartate Amino Transf (AST/SGOT) 31 U/L Alanine Aminotransferase (ALT/SGPT) 21 U/L Alkaline Phosphatase 213 U/L Total Protein 6.0 g/dL Albumin 1.9 g/dL Globulin 4.1 Albumin/Globulin Ratio 0.463 Bedside Glucose 378 381 Test 07/10/21 07:07 07/10/21 08:13 07/10/21 08:17 07/10/21 09:12 Bedside Glucose 328 270 332 Sodium Level 134 mmol/L Potassium Level 3.7 mmol/L Chloride Level 99.0 mmol/L Carbon Dioxide Level 22.8 mmol/L Glucose Level 340 mg/dL Blood Urea Nitrogen 23 mg/dL Creatinine 1.03 mg/dL Calcium Level 8.0 mg/dL Anion Gap 15.9 Estimated GFR () 96.3 Est GFR (CKD-EPI)(Non-Afr Nepalese) 79.6 BUN/Creatinine Ratio 22.0 Current Medications Medications (Trade) Dose Ordered Sig/Robby PRN Reason Start Time Stop Time Status Last Admin Albuterol/ Ipratropium (Duo 0.5-3(2.5) Mg/3 ml) 3 ml RTQ4 07/09/21 21:00 08/08/21 20:59 07/10/21 08:48 Azithromycin 500 mg/Sodium Chloride 250 ml @ 175 mls/hr Q24HRS 07/09/21 19:00 08/08/21 18:59 07/09/21 19:00 Dextrose (Dextrose 50%-Water Syringe) 25 ml STAT PRN hypoglycemia 07/09/21 22:00 08/08/21 21:59 Dextrose (Dextrose 50%-Water Syringe) 25 ml STAT PRN HYPOGLYCEMIA 07/09/21 23:30 08/08/21 23:29 Enoxaparin Sodium (Lovenox) 40 mg Q24HRS 07/09/21 22:00 08/08/21 21:59 07/09/21 22:00 Hydralazine HCl (Apresoline) 10 mg Q6HR PRN HYPERTENSION 07/09/21 22:00 08/08/21 21:59 Insulin Human Lispro (Humalog) 0-140 0 Units 141-200... ACHS 07/10/21 07:30 08/09/21 07:29 Hold Insulin Human Regular 100 unit/ Sodium Chloride 100 ml @ 0 mls/hr TITRATE 07/10/21 01:30 08/09/21 01:29 07/10/21 00:02 Lorazepam (Ativan) 1 mg Q4HR PRN ANXIETY 07/09/21 22:00 2/9/22 21:59 07/09/21 23:50 Morphine Sulfate (Morphine Sulfate) 1 mg Q6 PRN PAIN 4 - 6 07/09/21 19:00 08/08/21 18:59 Morphine Sulfate (Morphine Sulfate) 2 mg Q6 PRN PAIN 7 - 10 07/09/21 20:00 08/08/21 19:59 07/09/21 21:20 Ondansetron HCl (Zofran) 4 mg Q4H PRN NAUSEA / VOMITING 07/09/21 23:30 08/08/21 23:29 Ondansetron HCl (Zofran) 4 mg Q6HR PRN NAUSEA / VOMITING 07/09/21 19:00 08/08/21 18:59 07/09/21 21:20 Remdesivir 100 mg/ Sodium Chloride 120 ml @ 111.111 mls/hr Q24HRS 07/11/21 09:00 07/14/21 10:05 LEVEL 1 SEPSIS INFECTION CRITE: Cough/Shortness of Breath LEVEL 2-SIRS (LIST ALL THAT AP: RR>20/min, WBC>17048 Cardiovascular Evidence: Not Assessed or None Hematologic Evidence: None/Not assessed Hepatic Evidence: None/Not assessed Metabolic Evidence: None/Not assessed Neurological Evidence: None/Not assessed Respiratory Evidence: Need for O2 to keep>90% Renal Evidence: None/Not assessed O2 Sat by Pulse Oximetry: 89 Oxygen Flow Rate: 40.00 Assessment/Plan Assessment/Plan Assessment/Plan COVID PNA ARDS acute resp failure 02 req. going down plan for HFNC with non-rebreather as needed titrate fi02 dvt/gi proph encourage po intake Critical care recommendations CTa 07/10: multiple PE with saddle embolus and large filling defects in RLL; RUL and small defects throughout LLL pulm artery; diffuse multifocal infiltrates and ground-glass opacities bilaterally therapeutic Lovenox dosing started oxygen requirements trending down HFNC trialed 07/14 & 07/15 and tolerating with NRB over coughing fit this am Tessalon perles given patient overall feeling a bit better PMHx includes but is no limited to: DM, obesity Chart and additional data reviewed Na 127 (prior 124) Cr 0.7 glucose 350/325/373 lantus adjusted with most recent glucose in 200s patient with COVID infection hypoxemic resp failure remdesivir/decadron with some improvement in supplemental oxygen requirement 1. Pulm on HFNC with NRB cont to encourage lateral/self proning positioning Tessalon for coughing cont steroids multiple PE on lovenox therapeutic dosing ongoing 2. Endocrine presented in DKA resolved hyperglycemia steroids exacerbating lantus dosing (units) increased today and getting BID dosing monitor closely may require further adjustment DVT and GI prophylaxis in place d/w patient/bedside provider/RT ABDOULAYE SINGH MD Jul 17, 2021 06:50
[2021-07-17] MEDS ORDERED: SUBLIMAZE ONE ×2 (07:10→07:12)
[2021-07-17] MEDS ORDERED: LASIX ONE (07:17)
[2021-07-17 07:34] LABS: SEGMENTED NEUTROPHILS 87 % (31-76)
[2021-07-17 07:35] LABS: BAND NEUTROPHILS 1 % (2-6); LYMPHOCYTE 3 % (25-36); MONOCYTE 9 % (3-9)
[2021-07-17 07:41] LABS: ABG PCO2 35.1 mmHg (35.0-45.0); ABG PH 7.429 (7.350-7.450); BE(B) -0.9 mmol/L (-2.0-2.0); HCO3act 22.7 mmol/L (22.0-26.0); pO2 46.9 mmHg (80.0-100.0)
--- NOTE | 2021-07-17 07:45 | DIREP ---
PROCEDURE:CHEST 1 VIEW COMPARISON:[facility], CR, XRAY CHEST SINGLE VW, 07/11/2021, 08:35 AM. INDICATIONS:resp distress FINDINGS: LUNGS/PLEURA:Diffuse patchy airspace opacities throughout all lobes. Interval worsening. No effusion or pneumothorax. VASCULATURE:Normal. Unremarkable pulmonary vasculature. CARDIAC:Normal. No cardiac silhouette abnormality or cardiomegaly. MEDIASTINUM:Normal. No visible mass or adenopathy. BONES:Mild degenerative changes. OTHER:Negative. CONCLUSION:Patchy diffuse airspace opacities, consistent with multi lobar pneumonia to include from atypical organisms such as COVID-19. Interval worsening. Dictated by: Salvador Mcgrath M.D. on 07/17/2021 at 07:42 AM
[2021-07-17] MEDS ORDERED: DIPRIVAN 100 ML IV ONE (07:54)
[2021-07-17] MEDS ORDERED: NS 1000ML 1,000 ML ONE ×4 (07:54→10:28)
--- NOTE | 2021-07-17 07:56 | PRM.PN ---
Assessment & Plan Provider Note: Impression: COVID-19 PNA Pulmonary embolism Acute hypoxemic resp failure ARDS DM Obesity Rec: Will see how he is doing on increased IPAP, if not oxygenating better he will need to be intubated Patient received furosemide 40mg IV about 30 minutes ago which was very reasonable given his worsening oxygenation and tachypnea as well as CXR suggestive of pulmonary edema by report (I cannot see image currently). However he has been overall negative recently and he has new/worsening leukocytosis so I am worried that he may have developed a new superinfection. Will start vanco plus pip/tazo Del Cid culture patient, check MRSA nares, procal, if intubated sputum culture as well Cont full A/C with enoxaparin Cont dexamethasone Cont famotidine for SUP while on A/C in ICU Addendum: Post intubation patient developed progressive hypotension and hypoxemia followed by PEA- asystolic arrest. CPR performed x 14 minutes with ROSC. On post intubation CXR patient with ETT in place, bilateral infiltrates, no PTX. During CPR stat TTE showed bilateral lung sliding, grossly normal appearing RV and LV function without large pericardial effusion. Repeat CXR and ABG pending. Will start hypothermia protocol to goal 36C. Patient seen through remote audiovisual assessment through HIPAA compliant setup. All labs, flowsheets, and images reviewed Cumulative nonprocedural critical care time spent in directed patient care = 60min FLORIN HAMILTON MD Jul 17, 2021 07:56
[2021-07-17] MEDS ORDERED: NS 500ML 500 ML IV ONE (07:57)
[2021-07-17] MEDS ORDERED: ZOSYN 4.5 GM 4.5 GM in NS 100ML 100 ML IV SCH (08:00)
[2021-07-17] MEDS ORDERED: LEVOPHED ONE (08:13)
[2021-07-17] MEDS ORDERED: NS 250ML 250 ML ONE ×3 (08:13→10:03)
--- NOTE | 2021-07-17 08:19 | NUR ---
INTUBATION Code Delta called at 0730 - KIRSTIE Kelly stated pat unresponsive; RT Dejah, RT Eri and RT Piper to show up; pat was awake by then; spo2 was low 80s; Lupe RN had pat on nonrebreather; Dr. Valdez at bedside; EKG ordered, EKG done and results shown to Dr. Valdez; ABG ordered; ABG drawn and results reported to Dr. Valdez; Dr. valdez to order intubation; Nury Can, anesthesiology, called and prepared to intubate; Dr. Valdez, RT Pond and KIRSTIE Kelly at bedside; suction had been set up and fully functional and operational; ambubag at bedside with 100% fio2; Nury Can to intubate with 8.0 ETT at 23 lip; co2 detector placed and color change; Dr. Valdez to auscultate and confirm bilateral breath sounds; xray called; pat placed on ventilator AC 26/400/100%/+[address] Valdez orders; spo2 ange to 91%; rt to continue to monitor and await further orders Addendum: 07/17/21 at 0826 by Dejah Ogden RRT, Contract RT Amended: Links added.
[2021-07-17] MEDS ORDERED: EPINEPHrine ONE ×2 (08:28→08:41)
--- NOTE | 2021-07-17 08:34 | DIREP ---
PROCEDURE:CHEST 1 VIEW COMPARISON:[facility], CR, XRAY CHEST SINGLE VW, 07/17/2021, 07:13 AM. INDICATIONS:INTUBATION FINDINGS: LUNGS/PLEURA:Diffuse patchy airspace opacities throughout the bilateral lungs. No effusion or pneumothorax. VASCULATURE:Normal. Unremarkable pulmonary vasculature. CARDIAC:Normal. No cardiac silhouette abnormality or cardiomegaly. MEDIASTINUM:Normal. No visible mass or adenopathy. BONES:Normal. No fracture or visible bony lesion. OTHER:Endotracheal tube with tip overlying the mid trachea. Enteric tube with tip overlying the left upper quadrant. CONCLUSION:Patchy diffuse airspace opacities, consistent with multi lobar pneumonia to include from atypical organisms such as COVID-19. Endotracheal and enteric tubes as above. Dictated by: Salvador Mcgrath M.D. on 07/17/2021 at 08:31 AM
--- NOTE | 2021-07-17 08:48 | PCM.EKG ---
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
[2021-07-17] MEDS ORDERED: VANCOMYCIN 2 GRAM/400 ML BAG 400 ML IV ONE (09:00)
[2021-07-17] MEDS ORDERED: SUBLIMAZE IV PRN (09:00)
[2021-07-17] MEDS ORDERED: NS IV PRN (09:00)
[2021-07-17 09:32] LABS: ABG PCO2 50.9 mmHg (35.0-45.0); ABG PH 7.165 (7.350-7.450); BE(B) -10.9 mmol/L (-2.0-2.0); HCO3act 17.9 mmol/L (22.0-26.0); pO2 51.7 mmHg (80.0-100.0)
[2021-07-17 09:52] LABS: RED CELL DISTRIBUTION WIDTH 13.2 % (11.5-14.5)
[2021-07-17] MEDS ORDERED: NS IV ONE (10:00)
[2021-07-17] MEDS ORDERED: EPINEPHrine IV ONE (10:00)
[2021-07-17] MEDS ORDERED: SODIUM BICARBONATE IV ONE (10:00)
[2021-07-17] MEDS ORDERED: EPINEPHRINE IV ONE (10:00)
[2021-07-17] MEDS ORDERED: WATER ONE (10:02)
[2021-07-17] MEDS ORDERED: VANCOMYCIN HCL 1 GM ONE (10:04)
[2021-07-17 10:05] LABS: CARBON DIOXIDE 18.7 mmol/L (20.0-32)
--- NOTE | 2021-07-17 10:12 | PCM.EKG ---
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
--- NOTE | 2021-07-17 10:24 | DIREP ---
P move ROCEDURE:CHEST 1 VIEW COMPARISON:[facility], CR, XRAY CHEST SINGLE VW, 07/17/2021, 08:14 AM. INDICATIONS:Intubated FINDINGS: LUNGS/PLEURA:ETT tip 5 cm above the zahira. Widespread bilateral pulmonary infiltrates. Medial left chest obscured by overlying monitor leads and paddle. CARDIAC:Normal heart size. MEDIASTINUM:Normal. No visible mass or adenopathy. BONES:Normal. No fracture or visible bony lesion. OTHER:Right IJ catheter with tip overlying SVC. Gastric tube extends into the distal stomach and coils superior laterally, with its tip in the gastric fundus. CONCLUSION: 1. Compared to the prior exam, there is a new right IJ catheter noted. 2. No significant change in bilateral pneumonia infiltrates. Other support lines are once again noted. Dictated by: Nathaniel Del Cid M.D. on 07/17/2021 at 10:20 AM
--- NOTE | 2021-07-17 10:42 | NUR ---
0655-Patient in room starting moaning and yelling, states right side of chest hurts, pulled of his mask, this nurse and Lupe RN to bedside, this nurse put mask on patient, O2 sat 62%, patient's eyes rolled back and he became unresponsive, called rapid response, able to arouse patient after approximately 1 minute, O2 sat 78%. 07-respiratory to room, Dr. Valdez called 07-Patient placed back on bipap 09/02, 100%, O2 sat 84% 07-Dr. Valdez ordered AGB and RT drawing now 729-ABG results called to Dr. Valdez and Telemed, Patient to be intubated 07-Patient and spouse agreed to intubation 075-Dr. Valdez and Soha CUNHA at bedside for intubation 08-Propofol 200 mcg and succs 170 mg given 08-patient intubated 23 @ teeth, color change 08-Patient given Vec 10 mg, Prop started @ 30 mcg 08-Vent settings FiO2 100%, Peep 14, Tidal Volume 400, Rate 26 0815 Fluids started on bolus for hypotension, Levo started 6 mcg/min, Prop stopped 08- Art line in, Patient given Epi 1 mg for hypotension, Levo @ 20 mcg/min 0831-Levo on hold, HR 166, BP 294/144 0835-Fentanyl 100 mcg given IV patient not sedated, 0843-Epi 1 mg, Levo on @ 10 per MD 0852-BP 49/31, Levo @ 20 0853-increased Epi to 15 mcg/min, Fluids turned back on 08-CPR started, PEA, Code blue called 899-Epi 1mg IV 09- no pulse, resume CPR, Epi drip to 20 mcg/min, Levo drip to 40 mcg/min per MD, 1 amp bicarb given, IV bolus NS 09-Epi 1 mg given IV, no pulse, PEA 09-Resume CPR, 1 amp of bicarb given 09-no pulse, PEA, epi 1 mg IV 09-Asystole, no pulse 908- Epi 1 mg given IV 909-Schimmer sign per U/S Dr. Valdez bilateral, no pulse, CPR resumed 911-Carotid pulse felt, Rate 148 O2 sat 63%, Art line BP 210/111 0914- HR 147, BP 184/96, O2 sat 71% 0916- NIBP 186/93, Art line 152/82 O2 sat 58% 0931- PEA O2 sat 76% 0932-Epi 1 mg IV 0933- no pulse 0935- carotid pulse rate 128, 0936-blood sugar 297 BP 107/60 art line 0941-PEA, Epi drip to 20 mcg/min 0942- Epi 1 mg given IV 0943- HR 118, Art line 213/107, O2 sat 25% 0945- 1 amp Bicarb given based on ABG results 0955- PEA, began CPR 0956- Epi 1 mg given IV 0957- pulse carotid Rate 112, BP 164/85 art line, O2 sat 58% 1003- PEA, CPR started, Epi 1 mg IV given 1005- carotid pulse HR 107 1007- Blood glucose 459 critical lab, notified at bedside, BP 78/39 art line, O2 56, thready pulse felt carotid 1010-no pulse, CPR started 1011- Epi 1 mg IV given 1012- organized rhythm pulse 106 1017- no pulse, CPR started 1018-Epi 1 mg given IV, Epi drip at 30 mcg/min 1019- organized rhythm pulse 126 1021- pupil fixed and dilated, no pulse, CPR started, Epi 1 mg IV given 1023- pulse felt carotid HR 85 1025- no pulse, CPR started, Epi 1 mg IV given 1027-Pulse felt HR 128 1028- Dr. Valdez at bedside from talking with spouse 1030- 1 amp Bicarb given 1032- no pulse, CPR started, Dr. Valdez out to speak with spouse 1034- pulse felt carotid, HR 104, organized rhythm 1039-epi drip at 34 mcg/min, no pulse, CPR started, 1040- Epi 1 mg IV given 1041-CPR discontinued by Dr. Valdez at request of spouse 1042- Time of pronounced by Dr. Valdez
[2021-07-17 10:47] LABS: BAND NEUTROPHILS 1 % (2-6); LYMPHOCYTE 12 % (25-36); MYELOCYTES 2 %; SEGMENTED NEUTROPHILS 83 % (31-76)
[2021-07-17 10:48] LABS: DIFFERENTIAL COMMENT NORMAL
[2021-07-17 10:54] LABS: ABG PCO2 63.1 mmHg (35.0-45.0); BE(B) -14.7 mmol/L (-2.0-2.0); HCO3act 16.7 mmol/L (22.0-26.0); pO2 51.6 mmHg (80.0-100.0)
--- NOTE | 2021-07-17 13:15 | NUR ---
CASE MANAGEMENT 0900 CM AT BEDSIDE TO CONTACT FAMILY REGARDING CODE BLUE. CM CONTACTED SPOUSE TO GIVE AN UPDATE ON PATIENT STATUS. CODE TEAM AT BEDSIDE PERFORMING CPR ON PATIENT. PATIENT AT 1042. [facility] CONTACTED TO TRANSPORT BODY.
--- NOTE | 2021-07-17 13:27 | PRM.PN ---
Subjective Subjective Date: Jul 17, 2021 Time: 10:42 Subjective Patient had event this morning at approximately 7 AM where he was briefly unresponsive I was called to the patient's bedside and he had recovered. His oxygen saturations were poor despite BiPAP we consulted telemetry pulmonology bear bernal made adjustments to his BiPAP settings for trial of improvement without significant change in conjunction with telemetry critical care and ABG results the decision to intubate the patient was made. Patient and his were in agreement with intubation. 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 Position was confirmed by end-tidal CO2 color change capnography chest x-ray equal chest rise and fall bilateral breath sounds. See nursing and TIRE RECAPPING MACHINE OPERATOR notes for details. An art line was obtained with declining blood pressures on sedation. Levophed was started and sedation was decreased as well as a fluid bolus to improve pressures. Blood pressures continued to decline despite adding IV epinephrine to his Levophed telemedicine critical care was consulted on bedside video assisting with measures to improve blood pressure when patient went into cardiac arrest CPR was immediately started with approximately 4 rounds of epi and 14 minutes of compressions prior to ROSC. Bedside echo was obtained that showed lung sliding bilaterally no right heart strain no large pericardial effusion IVC within normal parameters. Repeat chest x-ray did not reveal any pneumothorax ET tube again verified in appropriate position a central line was placed and position verified as well. Targeted temperature management was begun with bilateral ice packs groin and axilla post cardiac arrest EKG did not show any clear ST elevation. Patient had been on full dose enoxaparin for approximately 1 week for saddle pulmonary embolus in the setting of COVID-19 pneumonia. The use of tPA was considered however with absence of right heart strain on bedside echo Activase was not administered; arrest was likely multifactorial with hypoxemia playing a role as patient saturations had significantly declined from his initial postintubation mid 90s without a clear identified etiology pneumothorax was not identified on TTE ED or serial x-ray. See nursing notes for complete details of cardiac arrest which included multiple occasions of ROSC followed by recurrent cardiac arrest patient's was kept abreast of the situation throughout. After the patient had gone into cardiac arrest several times and after several discussions the patient's agreed that he would not want to proceed given the unlikely chance of a positive outcome given recurrent cardiac arrest persistently low oxygen saturations and very high likelihood of anoxic brain injury without immediate reversible poor oxygenation due to severe lung disease in the setting of COVID-pneumonia and ARDS with saddle pulmonary embolism. Resuscitation efforts were stopped mid cardiac arrest and patient at 10:42 AM Reversible causes of cardiac arrest were surveilled to include acidosis which was treated with multiple rounds of bicarb hypoxia with vent settings maximized prior to arrest. Hypoglycemia with blood sugars in the 200-300 range. Hyper and hypokalemia with no significant abnormalities. PE was known to be present with no heart strain identified on admission echo and bedside TTE no cardiac tamponade no evidence of STEMI on EKG during ROSC and patient's temperature was approximately 99 prior to targeted temperature management. Identified reversible causes of cardiac arrest were addressed and treated appropriately and unfortunately patient continued to recurrently go into cardiac arrest. VTE VTE Risk Score VTE Risk: Score 0-1 = Low Risk (Aggressive mobilization; early ambulation; no VTE prophylaxis required) Score 2: Moderate Risk (Intermittent/Pneumatic Compression Device OR Lovenox/Heparin/Coumadin) Score 3-4: High Risk (Intermittent/Pneumatic Compression Device AND Lovenox/Heparin/Coumadin) Score > or =5: Highest Risk (Intermittent/Pneumatic Compression Device AND Lovenox/Heparin/Coumadin) Antico:Hep/LMWH/Coum/Xarelto: Yes Mechanical device ordered: Yes Review of Systems Constitutional: Other (Intubated and sedated); No: Fever, Chills, Sweats, Weakness, Malaise Eyes: No: Pain, Vision change, Conjunctivae inflammation, Eyelid inflammation, Other, Redness ENT: No: Ear pain, Ear discharge, Nose pain, Nose discharge, Nose congestion, Mouth pain, Mouth swelling, Throat pain, Throat swelling, Other Respiratory: No: Cough, Dry, Shortness of breath, SOB with excertion, Wheezing, Hemoptysis, Pleuritic Pain, Sputum, Wheezing, Other Cardiovascular: No: Chest Pain, Palpitations, Orthopnea, Paroxysmal Noc. Dyspnea, Edema, Lt Headedness, Other Gastrointestinal: No: Nausea, Vomiting, Abdominal Pain, Diarrhea, Constipation, Melena, Hematochezia, Other Genitourinary: No Dysuria, No Frequency, No Incontinence, No Hematuria, No Retention, No Other Musculoskeletal: No: other, neck pain, shoulder pain, arm pain, back pain, hand pain, leg pain, foot pain Skin: No: Rash, Lesions, Jaundice, Bruising, Other Neurological: No: Weakness, Numbness, Incoordination, Change in speech, Confusion, Seizures, Other Allergies: Coded Allergies: No Known Drug Allergies (Verified Allergy, Unknown, 07/10/21) Objective Vitals and I/O Vital Sign - Last 24 Hours 07/17/21 07/17/21 08:35 08:39 Pulse 115 115 Resp 26 26 Pulse Ox 91 91 FiO2 100 General: Other (Intubated and sedated) HEENT: Atraumatic, PERRLA Neck: Supple, No JVD, No thyromegaly Lungs: Other (Diminished and coarse breath sounds throughout all lung kohli l imited by morbid obesity) Heart: Regular rate, Normal S1, Normal S2 Abdomen: Normal bowel sounds, Soft, No tenderness Extremities: No clubbing, No cyanosis Skin: No rashes, No breakdown, No significant lesion Neuro: Normal speech, Strength at 5/5 X4 ext Psych/Mental Status: Mental status NL All Results(Lab/Rad) Laboratory Tests Test 07/09/21 22:20 07/09/21 23:45 07/10/21 00:05 07/10/21 03:25 White Blood Count 14.5 10^3/uL Red Blood Count 4.62 10^6/uL Hemoglobin 12.8 g/dL Hematocrit 40.0 % Mean Corpuscular Volume 86.6 fL Mean Corpuscular Hemoglobin 27.7 pg Mean Corpuscular Hemoglobin Concent 32.0 g/dL Red Cell Distribution Width 13.3 % Platelet Count 148 10^3/uL Mean Platelet Volume 10.4 fL Neutrophils (%) (Auto) 85.7 % Lymphocytes (%) (Auto) 4.4 % Monocytes (%) (Auto) 7.4 % Neutrophils # (Auto) 12.4 10^3/uL Lymphocytes # (Auto) 0.63 10^3/uL1 Monocytes # (Auto) 1.1 10^3/uL Absolute Immature Granulocyte (auto 0.35 10^3 u/L Absolute Eosinophils (auto) 0.0 10^3/uL Immature Granulocytes % 2.40 % Eosinophils % 0.0 % Basophils % 0.1 % Basophils # 0.0 10^3/uL Sodium Level 137 mmol/L Potassium Level 4.0 mmol/L Chloride Level 100.0 mmol/L Carbon Dioxide Level 12.0 mmol/L Anion Gap 29.0 Blood Urea Nitrogen 22 mg/dL Creatinine 0.98 mg/dL Estimated GFR () 102.0 Est GFR (CKD-EPI)(Non-Afr Indonesian) 84.3 BUN/Creatinine Ratio 22.0 Glucose Level 422 mg/dL Calcium Level 7.0 mg/dL Phosphorus Level 3.2 mg/dL Magnesium Level 1.9 mg/dL Total Bilirubin 0.6 mg/dL Aspartate Amino Transf (AST/SGOT) 22 U/L Alanine Aminotransferase (ALT/SGPT) 16 U/L Alkaline Phosphatase 183 U/L Total Protein 5.3 g/dL Albumin 1.8 g/dL Globulin 3.5 Albumin/Globulin Ratio 0.514 Acetone, Semi-Quantitative LARGE Lactic Acid Level 2.5 mmol/L Blood Gas Sample Site LR Blood Gas pH 7.202 Blood Gas PCO2 29.5 mmHg Blood Gas PO2 78.0 mmHg Blood Gas HCO3 11.3 mmol/L Blood Gas Base Excess -15.2 mmol/L Filiberto Test POSITIVE Arterial Blood Oxygen Saturation 93 % Deoxyhemoglobin 6.9 % Carboxyhemoglobin 0.8 % Methemoglobin 0.4 % Total Hemoglobin 15.1 % Total Oxygen Concentration 19.5 % Oxygen Delivery Method (LAB) BIPAP ST 16/[address] Blood Gas Vent Rate 25 FiO2 100 % Total Carbon Dioxide 12.2 mmol/L Lactic Acid Followup at 2 Hours 1.8 mmol/L Test 07/10/21 04:16 07/10/21 04:46 07/10/21 05:33 07/10/21 07:07 White Blood Count 14.8 10^3/uL Red Blood Count 4.66 10^6/uL Hemoglobin 13.5 g/dL Hematocrit 39.0 % Mean Corpuscular Volume 83.7 fL Mean Corpuscular Hemoglobin 29.0 pg Mean Corpuscular Hemoglobin Concent 34.6 g/dL Red Cell Distribution Width 13.2 % Platelet Count 149 10^3/uL Mean Platelet Volume 10.8 fL Neutrophils (%) (Auto) 86.3 % Lymphocytes (%) (Auto) 5.3 % Monocytes (%) (Auto) 8.3 % Neutrophils # (Auto) 12.8 10^3/uL Lymphocytes # (Auto) 0.78 10^3/uL1 Monocytes # (Auto) 1.2 10^3/uL Absolute Immature Granulocyte (auto 0.31 10^3 u/L Absolute Eosinophils (auto) 0.0 10^3/uL Immature Granulocytes % 2.10 % Eosinophils % 0.0 % Basophils % 0.1 % Basophils # 0.0 10^3/uL Sodium Level 132 mmol/L Potassium Level 3.9 mmol/L Chloride Level 97.0 mmol/L Carbon Dioxide Level 16.6 mmol/L Anion Gap 22.3 Blood Urea Nitrogen 24 mg/dL Creatinine 1.13 mg/dL Estimated GFR () 86.5 Est GFR (CKD-EPI)(Non-Afr Indonesian) 71.5 BUN/Creatinine Ratio 21.0 Glucose Level 418 mg/dL Calcium Level 7.9 mg/dL Total Bilirubin 0.5 mg/dL Aspartate Amino Transf (AST/SGOT) 31 U/L Alanine Aminotransferase (ALT/SGPT) 21 U/L Alkaline Phosphatase 213 U/L Total Protein 6.0 g/dL Albumin 1.9 g/dL Globulin 4.1 Albumin/Globulin Ratio 0.463 Bedside Glucose 378 381 328 Test 07/10/21 08:13 07/10/21 08:17 07/10/21 09:12 Sodium Level 134 mmol/L Potassium Level 3.7 mmol/L Chloride Level 99.0 mmol/L Carbon Dioxide Level 22.8 mmol/L Glucose Level 340 mg/dL Blood Urea Nitrogen 23 mg/dL Creatinine 1.03 mg/dL Calcium Level 8.0 mg/dL Anion Gap 15.9 Estimated GFR () 96.3 Est GFR (CKD-EPI)(Non-Afr Indonesian) 79.6 BUN/Creatinine Ratio 22.0 Bedside Glucose 270 332 Current Medications Medications (Trade) Dose Ordered Sig/Robby Route PRN Reason Start Time Stop Time Status Last Admin Dose Admin Ondansetron HCl (Zofran) 4 mg STK-MED ONCE .ROUTE 07/09/21 18:30 07/09/21 18:31 DC Ondansetron HCl (Zofran) 4 mg Q6HR PRN IV NAUSEA / VOMITING 07/09/21 19:00 08/08/21 18:59 07/09/21 21:20 Azithromycin 500 mg/Sodium Chloride 250 ml @ 175 mls/hr Q24HRS IV 07/09/21 19:00 08/08/21 18:59 07/09/21 19:00 Albuterol/ Ipratropium (Duo 0.5-3(2.5) Mg/3 ml) 3 ml RTQ4 IH 07/09/21 21:00 08/08/21 20:59 07/10/21 08:48 Morphine Sulfate (Morphine Sulfate) 1 mg Q6 PRN IV PAIN 4 - 6 07/09/21 19:00 08/08/21 18:59 Morphine Sulfate (Morphine Sulfate) 2 mg Q6 PRN IV PAIN 7 - 10 07/09/21 20:00 08/08/21 19:59 07/09/21 21:20 Sodium Chloride 250 ml @ ud STK-MED ONCE .ROUTE 07/09/21 20:52 07/09/21 20:52 DC Metoprolol Tartrate (Lopresser) 5 mg STK-MED ONCE .ROUTE 07/09/21 21:41 07/09/21 21:42 DC Metoprolol Tartrate (Lopresser) 5 mg STAT STAT IVP 07/09/21 21:43 07/09/21 22:00 DC 07/09/21 21:43 Insulin Human Lispro (Humalog) 0-140 0 Units 141-200... ACHS SQ 07/10/21 07:30 08/09/21 07:29 Hold Dextrose (Dextrose 50%-Water Syringe) 25 ml STAT PRN IV hypoglycemia 07/09/21 22:00 08/08/21 21:59 Enoxaparin Sodium (Lovenox) 40 mg Q24HRS SQ 07/09/21 22:00 08/08/21 21:59 07/09/21 22:00 Hydralazine HCl (Apresoline) 10 mg Q6HR PRN IV HYPERTENSION 07/09/21 22:00 08/08/21 21:59 Remdesivir 200 mg/ Sodium Chloride 140 ml @ 120.69 mls/ hr OT STAT IV 07/09/21 21:37 07/10/21 08:10 DC Remdesivir 100 mg/ Sodium Chloride 120 ml @ 111.111 mls/hr Q24HRS IV 07/10/21 22:00 07/10/21 08:22 DC Lorazepam (Ativan) 1 mg Q4HR PRN IM ANXIETY 07/09/21 22:00 08/08/21 21:59 07/09/21 23:50 Insulin Human Lispro (Humalog) 18 unit OT ONCE SQ 07/09/21 23:30 07/09/21 23:31 DC 07/09/21 23:30 Ondansetron HCl (Zofran) 4 mg Q4H PRN IV NAUSEA / VOMITING 07/09/21 23:30 08/08/21 23:29 Insulin Human Regular 100 unit/ Sodium Chloride 100 ml @ 5 mls/hr IV 07/09/21 23:30 07/10/21 01:10 DC Dextrose (Dextrose 50%-Water Syringe) 25 ml STAT PRN IV HYPOGLYCEMIA 07/09/21 23:30 08/08/21 23:29 Sodium Chloride 100 ml @ ud STK-MED ONCE IV 07/09/21 23:34 07/09/21 23:35 DC Insulin Human Regular (Humulin R) 1 unit STK-MED ONCE .ROUTE 07/09/21 23:35 07/09/21 23:35 DC Sodium Chloride 1,000 ml @ ud STK-MED ONCE .ROUTE 07/09/21 23:55 07/09/21 23:56 DC Insulin Human Regular 100 unit/ Sodium Chloride 100 ml @ 0 mls/hr TITRATE IV 07/10/21 01:30 08/09/21 01:29 07/10/21 00:02 Remdesivir 200 mg/ Sodium Chloride 140 ml @ 120.69 mls/ hr OT ONCE IV 07/10/21 09:00 07/10/21 10:09 07/10/21 09:00 Remdesivir 100 mg/ Sodium Chloride 120 ml @ 111.111 mls/hr Q24HRS IV 07/11/21 09:00 07/14/21 10:05 Sodium Chloride 100 ml @ ud STK-MED ONCE IV 07/10/21 09:37 07/10/21 09:37 DC Course Sepsis Screening Results: Posi: POSITIVE Sepsis Qualifier/Stage: SEVERE SEPSIS RISK Duration or Total Time Spent w: 60 mins Vitals & review Data Vital Sign - Last 24 Hours 07/10/21 07/10/21 07/10/2111/22 08:00 08:49 08:50 08:51 Pulse 103 103 103 Resp 31 31 31 Pulse Ox 93 93 93 O2 Delivery Bi-pap Bi-pap O2 Flow Rate 100.00 FiO2 100 100 07/10/21 07/10/21 08:52 08:53 Pulse 108 Resp 28 Pulse Ox 94 O2 Flow Rate 45.00 FiO2 100 Intake and Output 07/10/21 07:00 Intake Total 1000 ml Output Total 2100 ml Balance -1100 ml Laboratory Tests Test 07/09/21 00:54 07/09/21 22:20 07/09/21 23:45 07/10/21 00:05 Urine Collection Type CCMS Urine Color YELLOW Urine Appearance TURBID Urine Bilirubin 1+ Urine Ketones 4+ Urine Specific [place] 1.025 Urine pH 5.5 Urine Protein 2+ Urine Urobilinogen 0.2 E.U./dL Urine Nitrate NEGATIVE Urine Leukocyte Esterase NEGATIVE Urine Glucose (Auto)(UA) 500 mg/dL Urine Blood 2+ Urine RBC TooNumerousToCount RBC/HPF Urine WBC NONE SEEN WBC/HPF Urine Squamous Epithelial Cells FEW Urine Bacteria FEW White Blood Count 14.5 10^3/uL Red Blood Count 4.62 10^6/uL Hemoglobin 12.8 g/dL Hematocrit 40.0 % Mean Corpuscular Volume 86.6 fL Mean Corpuscular Hemoglobin 27.7 pg Mean Corpuscular Hemoglobin Concent 32.0 g/dL Red Cell Distribution Width 13.3 % Platelet Count 148 10^3/uL Mean Platelet Volume 10.4 fL Neutrophils (%) (Auto) 85.7 % Lymphocytes (%) (Auto) 4.4 % Monocytes (%) (Auto) 7.4 % Neutrophils # (Auto) 12.4 10^3/uL Lymphocytes # (Auto) 0.63 10^3/uL1 Monocytes # (Auto) 1.1 10^3/uL Absolute Immature Granulocyte (auto 0.35 10^3 u/L Absolute Eosinophils (auto) 0.0 10^3/uL Immature Granulocytes % 2.40 % Eosinophils % 0.0 % Basophils % 0.1 % Basophils # 0.0 10^3/uL Sodium Level 137 mmol/L Potassium Level 4.0 mmol/L Chloride Level 100.0 mmol/L Carbon Dioxide Level 12.0 mmol/L Anion Gap 29.0 Blood Urea Nitrogen 22 mg/dL Creatinine 0.98 mg/dL Estimated GFR () 102.0 Est GFR (CKD-EPI)(Non-Afr Indonesian) 84.3 BUN/Creatinine Ratio 22.0 Glucose Level 422 mg/dL Calcium Level 7.0 mg/dL Phosphorus Level 3.2 mg/dL Magnesium Level 1.9 mg/dL Total Bilirubin 0.6 mg/dL Aspartate Amino Transf (AST/SGOT) 22 U/L Alanine Aminotransferase (ALT/SGPT) 16 U/L Alkaline Phosphatase 183 U/L Total Protein 5.3 g/dL Albumin 1.8 g/dL Globulin 3.5 Albumin/Globulin Ratio 0.514 Acetone, Semi-Quantitative LARGE Lactic Acid Level 2.5 mmol/L Blood Gas Sample Site LR Blood Gas pH 7.202 Blood Gas PCO2 29.5 mmHg Blood Gas PO2 78.0 mmHg Blood Gas HCO3 11.3 mmol/L Blood Gas Base Excess -15.2 mmol/L Filiberto Test POSITIVE Arterial Blood Oxygen Saturation 93 % Deoxyhemoglobin 6.9 % Carboxyhemoglobin 0.8 % Methemoglobin 0.4 % Total Hemoglobin 15.1 % Total Oxygen Concentration 19.5 % Oxygen Delivery Method (LAB) BIPAP ST 16/[address] Blood Gas Vent Rate 25 FiO2 100 % Total Carbon Dioxide 12.2 mmol/L Test 07/10/21 03:25 07/10/21 04:16 07/10/21 04:46 07/10/21 05:33 Lactic Acid Followup at 2 Hours 1.8 mmol/L White Blood Count 14.8 10^3/uL Red Blood Count 4.66 10^6/uL Hemoglobin 13.5 g/dL Hematocrit 39.0 % Mean Corpuscular Volume 83.7 fL Mean Corpuscular Hemoglobin 29.0 pg Mean Corpuscular Hemoglobin Concent 34.6 g/dL Red Cell Distribution Width 13.2 % Platelet Count 149 10^3/uL Mean Platelet Volume 10.8 fL Neutrophils (%) (Auto) 86.3 % Lymphocytes (%) (Auto) 5.3 % Monocytes (%) (Auto) 8.3 % Neutrophils # (Auto) 12.8 10^3/uL Lymphocytes # (Auto) 0.78 10^3/uL1 Monocytes # (Auto) 1.2 10^3/uL Absolute Immature Granulocyte (auto 0.31 10^3 u/L Absolute Eosinophils (auto) 0.0 10^3/uL Immature Granulocytes % 2.10 % Eosinophils % 0.0 % Basophils % 0.1 % Basophils # 0.0 10^3/uL Sodium Level 132 mmol/L Potassium Level 3.9 mmol/L Chloride Level 97.0 mmol/L Carbon Dioxide Level 16.6 mmol/L Anion Gap 22.3 Blood Urea Nitrogen 24 mg/dL Creatinine 1.13 mg/dL Estimated GFR () 86.5 Est GFR (CKD-EPI)(Non-Afr Indonesian) 71.5 BUN/Creatinine Ratio 21.0 Glucose Level 418 mg/dL Calcium Level 7.9 mg/dL Total Bilirubin 0.5 mg/dL Aspartate Amino Transf (AST/SGOT) 31 U/L Alanine Aminotransferase (ALT/SGPT) 21 U/L Alkaline Phosphatase 213 U/L Total Protein 6.0 g/dL Albumin 1.9 g/dL Globulin 4.1 Albumin/Globulin Ratio 0.463 Bedside Glucose 378 381 Test 07/10/21 07:07 07/10/21 08:13 07/10/21 08:17 07/10/21 09:12 Bedside Glucose 328 270 332 Sodium Level 134 mmol/L Potassium Level 3.7 mmol/L Chloride Level 99.0 mmol/L Carbon Dioxide Level 22.8 mmol/L Glucose Level 340 mg/dL Blood Urea Nitrogen 23 mg/dL Creatinine 1.03 mg/dL Calcium Level 8.0 mg/dL Anion Gap 15.9 Estimated GFR () 96.3 Est GFR (CKD-EPI)(Non-Afr Indonesian) 79.6 BUN/Creatinine Ratio 22.0 Current Medications Medications (Trade) Dose Ordered Sig/Robyb PRN Reason Start Time Stop Time Status Last Admin Albuterol/ Ipratropium (Duo 0.5-3(2.5) Mg/3 ml) 3 ml RTQ4 07/09/21 21:00 08/08/21 20:59 07/10/21 08:48 Azithromycin 500 mg/Sodium Chloride 250 ml @ 175 mls/hr Q24HRS 07/09/21 19:00 08/08/21 18:59 07/09/21 19:00 Dextrose (Dextrose 50%-Water Syringe) 25 ml STAT PRN hypoglycemia 07/09/21 22:00 08/08/21 21:59 Dextrose (Dextrose 50%-Water Syringe) 25 ml STAT PRN HYPOGLYCEMIA 07/09/21 23:30 08/08/21 23:29 Enoxaparin Sodium (Lovenox) 40 mg Q24HRS 07/09/21 22:00 08/08/21 21:59 07/09/21 22:00 Hydralazine HCl (Apresoline) 10 mg Q6HR PRN HYPERTENSION 07/09/21 22:00 08/08/21 21:59 Insulin Human Lispro (Humalog) 0-140 0 Units 141-200... ACHS 07/10/21 07:30 08/09/21 07:29 Hold Insulin Human Regular 100 unit/ Sodium Chloride 100 ml @ 0 mls/hr TITRATE 07/10/21 01:30 08/09/21 01:29 07/10/21 00:02 Lorazepam (Ativan) 1 mg Q4HR PRN ANXIETY 07/09/21 22:00 08/08/21 21:59 07/09/21 23:50 Morphine Sulfate (Morphine Sulfate) 1 mg Q6 PRN PAIN 4 - 6 07/09/21 19:00 08/08/21 18:59 Morphine Sulfate (Morphine Sulfate) 2 mg Q6 PRN PAIN 7 - 10 07/09/21 20:00 08/08/21 19:59 07/09/21 21:20 Ondansetron HCl (Zofran) 4 mg Q4H PRN NAUSEA / VOMITING 07/09/21 23:30 08/08/21 23:29 Ondansetron HCl (Zofran) 4 mg Q6HR PRN NAUSEA / VOMITING 07/09/21 19:00 08/08/21 18:59 07/09/21 21:20 Remdesivir 100 mg/ Sodium Chloride 120 ml @ 111.111 mls/hr Q24HRS 07/11/21 09:00 07/14/21 10:05 LEVEL 1 SEPSIS INFECTION CRITE: Cough/Shortness of Breath LEVEL 2-SIRS (LIST ALL THAT AP: RR>20/min, WBC>[id number] Cardiovascular Evidence: Not Assessed or None Hematologic Evidence: None/Not assessed Hepatic Evidence: None/Not assessed Metabolic Evidence: None/Not assessed Neurological Evidence: None/Not assessed Respiratory Evidence: Need for O2 to keep>90% Renal Evidence: None/Not assessed O2 Sat by Pulse Oximetry: 91 Oxygen Flow Rate: 40.00 Assessment/Plan Assessment/Plan Assessment/Plan Impression: COVID-19 PNA Pulmonary embolism Acute hypoxemic resp failure ARDS DM Obesity Critical Care Recommendations Rec: Will see how he is doing on increased IPAP, if not oxygenating better he will need to be intubated Patient received furosemide 40mg IV about 30 minutes ago which was very reasonable given his worsening oxygenation and tachypnea as well as CXR suggestive of pulmonary edema by report (I cannot see image currently). However he has been overall negative recently and he has new/worsening leukocytosis so I am worried that he may have developed a new superinfection. Will start vanco plus pip/tazo Del Cid culture patient, check MRSA nares, procal, if intubated sputum culture as well Cont full A/C with enoxaparin Cont dexamethasone Cont famotidine for SUP while on A/C in ICU Addendum: Post intubation patient developed progressive hypotension and hypoxemia followed by PEA- asystolic arrest. CPR performed x 14 minutes with ROSC. On post intubation CXR patient with ETT in place, bilateral infiltrates, no PTX. During CPR stat TTE showed bilateral lung sliding, grossly normal appearing RV and LV function without large pericardial effusion. Repeat CXR and ABG pending. Will start hypothermia protocol to goal 36C. INDICATIONS:resp distress FINDINGS: LUNGS/PLEURA:Diffuse patchy airspace opacities throughout all lobes. Interval worsening. No effusion or pneumothorax. VASCULATURE:Normal. Unremarkable pulmonary vasculature. CARDIAC:Normal. No cardiac silhouette abnormality or cardiomegaly. MEDIASTINUM:Normal. No visible mass or adenopathy. BONES:Mild degenerative changes. OTHER:Negative. CONCLUSION:Patchy diffuse airspace opacities, consistent with multi lobar pneumonia to include from atypical organisms such as COVID-19. Interval worsening. INDICATIONS:INTUBATION FINDINGS: LUNGS/PLEURA:Diffuse patchy airspace opacities throughout the bilateral lungs. No effusion or pneumothorax. VASCULATURE:Normal. Unremarkable pulmonary vasculature. CARDIAC:Normal. No cardiac silhouette abnormality or cardiomegaly. MEDIASTINUM:Normal. No visible mass or adenopathy. BONES:Normal. No fracture or visible bony lesion. OTHER:Endotracheal tube with tip overlying the mid trachea. Enteric tube with tip overlying the left upper quadrant. CONCLUSION:Patchy diffuse airspace opacities, consistent with multi lobar pneumonia to include from atypical organisms such as COVID-19. Endotracheal and enteric tubes as above. INDICATIONS:Intubated FINDINGS: LUNGS/PLEURA:ETT tip 5 cm above the zahira. Widespread bilateral pulmonary infiltrates. Medial left chest obscured by overlying monitor leads and paddle. CARDIAC:Normal heart size. MEDIASTINUM:Normal. No visible mass or adenopathy. BONES:Normal. No fracture or visible bony lesion. OTHER:Right IJ catheter with tip overlying SVC. Gastric tube extends into the distal stomach and coils superior laterally, with its tip in the gastric fundus. CONCLUSION: 1. Compared to the prior exam, there is a new right IJ catheter noted. 2. No significant change in bilateral pneumonia infiltrates. Other support lines are once again noted. ABDOULAYE SINGH MD Jul 17, 2021 13:26
--- NOTE | 2021-07-17 13:42 | NUR ---
RT to assist with Code Blue - RT Eri to bag pat with ambubag with 100% fio2; Vent settings were originally set at AC 26/400/+14/100%; 0915 - Increased rate from [address] Valdez 45 - Increased VT from [address] Courtney Pond to participate in multiple rounds of chest compressions Code called at 1135; pat at 1142 Addendum: 07/17/21 at 1346 by Dejah Ogden RRT, Contract RT Amended: Links added.
[2021-07-17] MEDS ORDERED: VANCOMYCIN HCL 1 GM in NS 250ML 250 ML IV SCH (17:00)
== END 2021-07-17 10:42 | DRG 177 ==
LOC: ICU 18:20
PROVIDERS: ADMIT Student in an Organized Health Care Education/Training Program; ATTEND Family Medicine
PROC: 5A09357 Assistance with Respiratory Ventilation, Less than 24 Consecutive Hours, Continuous Positive Airway Pressure (ICD-10-PCS; principal; 2021-07-09)
PROC: XW033E5 Introduction of Remdesivir Anti-infective into Peripheral Vein, Percutaneous Approach, New Technology Group 5 (ICD-10-PCS; 2021-07-09)
PROC: 5A0935A Assistance with Respiratory Ventilation, Less than 24 Consecutive Hours, High Flow/Velocity Cannula (ICD-10-PCS; 2021-07-09)
PROC: 5A09557 Assistance with Respiratory Ventilation, Greater than 96 Consecutive Hours, Continuous Positive Airway Pressure (ICD-10-PCS; 2021-07-10)
PROC: 5A0935A Assistance with Respiratory Ventilation, Less than 24 Consecutive Hours, High Flow/Velocity Cannula (ICD-10-PCS; 2021-07-10)
PROC: 5A09357 Assistance with Respiratory Ventilation, Less than 24 Consecutive Hours, Continuous Positive Airway Pressure (ICD-10-PCS; 2021-07-11)
PROC: 5A09357 Assistance with Respiratory Ventilation, Less than 24 Consecutive Hours, Continuous Positive Airway Pressure (ICD-10-PCS; 2021-07-12)
PROC: 5A09357 Assistance with Respiratory Ventilation, Less than 24 Consecutive Hours, Continuous Positive Airway Pressure (ICD-10-PCS; 2021-07-13)
PROC: 5A09357 Assistance with Respiratory Ventilation, Less than 24 Consecutive Hours, Continuous Positive Airway Pressure (ICD-10-PCS; 2021-07-14)
PROC: 5A0935A Assistance with Respiratory Ventilation, Less than 24 Consecutive Hours, High Flow/Velocity Cannula (ICD-10-PCS; 2021-07-14)
PROC: 5A09357 Assistance with Respiratory Ventilation, Less than 24 Consecutive Hours, Continuous Positive Airway Pressure (ICD-10-PCS; 2021-07-15)
PROC: 5A0935A Assistance with Respiratory Ventilation, Less than 24 Consecutive Hours, High Flow/Velocity Cannula (ICD-10-PCS; 2021-07-15)
PROC: 5A09357 Assistance with Respiratory Ventilation, Less than 24 Consecutive Hours, Continuous Positive Airway Pressure (ICD-10-PCS; 2021-07-16)
PROC: 5A0935A Assistance with Respiratory Ventilation, Less than 24 Consecutive Hours, High Flow/Velocity Cannula (ICD-10-PCS; 2021-07-16)
PROC: 5A09357 Assistance with Respiratory Ventilation, Less than 24 Consecutive Hours, Continuous Positive Airway Pressure (ICD-10-PCS; 2021-07-17)
PROC: 5A0935A Assistance with Respiratory Ventilation, Less than 24 Consecutive Hours, High Flow/Velocity Cannula (ICD-10-PCS; 2021-07-17)
PROC: 5A12012 Performance of Cardiac Output, Single, Manual (ICD-10-PCS; 2021-07-17)
DX: U07.1 COVID-19 (principal); E11.10 Type 2 diabetes mellitus with ketoacidosis without coma; I26.92 Saddle embolus of pulmonary artery without acute cor pulmonale; J12.82 Pneumonia due to coronavirus disease 2019; J80 Acute respiratory distress syndrome; Z68.41 Body mass index [BMI] 40.0-44.9, adult; F41.9 Anxiety disorder, unspecified; E11.649 Type 2 diabetes mellitus with hypoglycemia without coma; E66.01 Morbid (severe) obesity due to excess calories; E87.6 Hypokalemia; I46.9 Cardiac arrest, cause unspecified; I95.89 Other hypotension; E11.65 Type 2 diabetes mellitus with hyperglycemia; Z79.01 Long term (current) use of anticoagulants
CPT/HCPCS: 31500; 36415; 36600; 71045; 71275; 74018; 80048; 80053; 81001; 82010; 82803; 82948; 83605; 83690; 83735; 83880; 84100; 84145; 84484; 85025; 85027; 85379; 87086; 92950; 93005; 93306; 94002; 94640; 94660; G0378; J0171; J0360; J0456; J0696; J1100; J1644; J1650; J1815; J1940; J2060; J2270; J2405; J2543; J3010; J3370; J3490; J7030; J7040; J7050; J7070; J7120; Q9967